=== PATIENT | male | born 1970 | race Caucasian/White ===

== ENCOUNTER 2019-09-09 11:12 | Emergency (ER) | payer OTHER, BC ==
[~2019-09-09] VITALS: Ht 180.3 cm; Wt 124.3 kg
[~2019-09-09 11:12] MED LIST changes: -IBUP400 PO; -Percocet 5-3251 EACH PO
[2019-09-09 12:57] LABS: BASOPHILS ABSOLUTE AUTO 0.08 K/mm3 (0.00-0.23); BASOPHILS PERCENT AUTO 2 % (0-2); EOSINOPHILS ABSOLUTE AUTO 0.08 K/mm3 (0.00-0.68); EOSINOPHILS PERCENT AUTO 2 % (0-6); Hematocrit 38.5 % (37.0-53.0); Hemoglobin 12.9 g/dL (13.5-17.5); IMMATURE GRAN ABSOLUTE AUTO 0.41 K/mm3 (0.00-0.10); IMMATURE GRAN PERCENT AUTO 8 % (0-1); LYMPHOCYTES ABSOLUTE AUTO 2.28 K/mm3 (0.84-5.20); LYMPHOCYTES PERCENT AUTO 42 % (21-46); MONOCYTES ABSOLUTE AUTO 0.43 K/mm3 (0.16-1.47); MONOCYTES PERCENT AUTO 8 % (4-13); Mean Corpuscular HGB Conc 33.5 g/dL (31.5-36.5); Mean Corpuscular Volume 87 fL (80-100); Mean Platelet Volume 8.4 fL (9.1-12.4); NEUTROPHILS ABSOLUTE AUTO 2.15 K/mm3 (1.96-9.15); NEUTROPHILS PERCENT AUTO 40 % (41-73); NRBC ABSOLUTE 0.04 K/mm3 (0.00-0.02); NRBC Auto 0.7 /100 WBC (0.0-0.2); Platelet Count 174 K/mm3 (150-400); RDW Coefficient Variation 12.7 % (11.7-14.2); RDW Standard Deviation 40.2 fL (35.1-46.3); Red Blood Cell Count 4.45 M/mm3 (4.30-5.90); White Blood Cell Count 5.43 K/mm3 (4.00-11.30)
[2019-09-09 13:12] LABS: Alanine Aminotransfer (ALT/SGP 81 U/L (12-78); Albumin, Blood 3.4 g/dL (3.4-5.0); Albumin/Globulin Ratio 1.1 (0.8-1.8); Alk Phos 134 U/L (50-136); Anion Gap 10 mmol/L (6-16); Aspartate Aminotrans (AST/SGOT 79 U/L (12-37); Bilirubin, Total 1.1 mg/dL (0.1-1.0); Blood Urea Nitrogen 12 mg/dL (8-24); Bun/Creatinine Ratio 19.5 (12.0-20.0); CO2, Blood 24 mmol/L (21-32); Calcium, Blood 8.6 mg/dL (8.5-10.1); Chloride, Blood 107 mmol/L (98-108); Creatinine, Blood 0.61 mg/dL (0.60-1.20); Globulin, Blood 3.2 g/dL (2.2-4.0); Glomerular Filtration Rate >60 (60-); Glucose, Blood 118 mg/dL (70-99); Potassium, Blood 3.8 mmol/L (3.5-5.5); Sodium, Blood 141 mmol/L (136-145); Total Protein, Blood 6.6 g/dL (6.4-8.2)
[2019-09-09] MEDS ORDERED: Percocet 5-3251 EACH PO (15:20)
[2019-09-09] MEDS ORDERED: IBUP400 PO (15:20)
== END 2019-09-09 15:32 | disposition home or self-care (01) ==
LOC: ER 11:12
PROVIDERS: Emergency Medicine
DX: H72.92 Unspecified perforation of tympanic membrane, left ear (principal); R51 Headache; R20.0 Anesthesia of skin; I10 Essential (primary) hypertension; E66.01 Morbid (severe) obesity due to excess calories; Z68.38 Body mass index [BMI] 38.0-38.9, adult; E11.40 Type 2 diabetes mellitus with diabetic neuropathy, unspecified; Z87.891 Personal history of nicotine dependence; Z79.899 Other long term (current) drug therapy; Z79.82 Long term (current) use of aspirin; Z79.84 Long term (current) use of oral hypoglycemic drugs
CPT/HCPCS: 70450; 80053; 85025; 96374; 96375; 99284-25; J1170; J2405

== ENCOUNTER → 2019-09-09 | Outpatient (CLI) | payer BC ==
[~2019-09-09] MED LIST: ALBU90I INH; AMIT25 PO; ATOR20; ATORVASTATIN CA80 MG PO; Aspirin EC81 MG PO; GABA300; GABA300 PO; GLYB5 PO; IBUP400 PO; LISI5 PO; LOVA40 PO; METF500; METF500 PO; NITR.4SL SL; OSEL75CA PO; PIOG30 PO; PIOGLITAZONE HC30 MG PO; Percocet 5-3251 EACH PO
== END | disposition home or self-care (01) ==
LOC: LAB SHORT 10:03 → LAB EV 10:03
DX: R59.0 Localized enlarged lymph nodes (principal)
CPT/HCPCS: 87081

== ENCOUNTER 2019-09-18 07:11 | Emergency (ER) | payer OTHER, BC ==
[~2019-09-18] VITALS: Ht 180.3 cm; Wt 122.5 kg
[~2019-09-18 07:11] MED LIST changes: +IBUP400 PO; +Percocet 5-3251 EACH PO
[2019-09-18] MEDS ORDERED: Hydrocodone-Ap1 EA26 PO (07:22)
[2019-09-18] MEDS ORDERED: Oxycodone-Apap1 EAC3 PO (07:23)
[2019-09-18] MEDS ORDERED: Zanaflex4 MG PO (07:24)
[2019-09-18 07:58] LABS: Hematocrit 35.3 % (37.0-53.0); Hemoglobin 11.9 g/dL (13.5-17.5); Mean Corpuscular HGB 28.9 pg (26.0-34.0); Mean Corpuscular HGB Conc 33.7 g/dL (31.5-36.5); Mean Corpuscular Volume 86 fL (80-100); Mean Platelet Volume 8.6 fL (9.1-12.4); NRBC ABSOLUTE 0.03 K/mm3 (0.00-0.02); NRBC Auto 0.7 /100 WBC (0.0-0.2); Platelet Count 163 K/mm3 (150-400); RDW Coefficient Variation 13.1 % (11.7-14.2); RDW Standard Deviation 40.6 fL (35.1-46.3); Red Blood Cell Count 4.12 M/mm3 (4.30-5.90)
[2019-09-18 08:16] LABS: Alanine Aminotransfer (ALT/SGP 102 U/L (12-78); Alk Phos 121 U/L (50-136); Anion Gap 12 mmol/L (6-16); Aspartate Aminotrans (AST/SGOT 69 U/L (12-37); Bilirubin, Total 1.1 mg/dL (0.1-1.0); Blood Urea Nitrogen 15 mg/dL (8-24); Bun/Creatinine Ratio 20.8 (12.0-20.0); CO2, Blood 27 mmol/L (21-32); Calcium, Blood 8.9 mg/dL (8.5-10.1); Chloride, Blood 103 mmol/L (98-108); Creatinine, Blood 0.72 mg/dL (0.60-1.20); Glomerular Filtration Rate >60 (60-); Glucose, Blood 115 mg/dL (70-99); Potassium, Blood 3.5 mmol/L (3.5-5.5); Sodium, Blood 142 mmol/L (136-145)
[2019-09-18 08:27] LABS: BAND PERCENT MAN 6 % (0-8); BASOPHILS ABSOLUTE MAN 0.04 K/mm3 (0.00-0.23); BASOPHILS PERCENT MAN 1 % (0-2); EOSINOPHILS ABSOLUTE MAN 0.13 K/mm3 (0.00-0.68); EOSINOPHILS PERCENT MAN 3 % (0-6); LYMPHOCYTES % ATYPICAL MANUAL 3 % (0-0); LYMPHOCYTES ABSOLUTE MAN 1.36 K/mm3 (0.84-5.20); LYMPHOCYTES PERCENT MAN 28 % (21-46); METAMYELOCYTE ABSOLUTE MAN 0.08 K/mm3 (0.00-0.00); METAMYELOCYTE PERCENT MAN 2 % (0-0); MONOCYTES ABSOLUTE MAN 0.35 K/mm3 (0.16-1.47); MONOCYTES PERCENT MAN 8 % (4-13); NEUTROPHILS ABSOLUTE MAN 2.42 K/mm3 (1.96-9.15); SEG NEUTROPHILS PERCENT MAN 49 % (41-73); TOTAL CELLS COUNTED 100
[2019-09-18] MEDS ORDERED: Zofran4 MG PO (11:34)
[2019-09-18] MEDS ORDERED: Valium5 MG PO (11:34)
== END 2019-09-18 12:07 | disposition home or self-care (01) ==
LOC: ER 07:11
PROVIDERS: Emergency Medicine
DX: H71.92 Unspecified cholesteatoma, left ear (principal); E86.0 Dehydration; R11.2 Nausea with vomiting, unspecified; E11.9 Type 2 diabetes mellitus without complications; G47.30 Sleep apnea, unspecified; Z87.891 Personal history of nicotine dependence; Z79.899 Other long term (current) drug therapy; Z79.82 Long term (current) use of aspirin; Z79.84 Long term (current) use of oral hypoglycemic drugs; Z79.891 Long term (current) use of opiate analgesic
CPT/HCPCS: 36415; 80053; 85025; 96361; 96374; 96375; 96376; 99284-25; J1170; J1885; J2550; J7120

== ENCOUNTER → 2019-09-20 | Outpatient (CLI) | payer BC ==
[~2019-09-20] MED LIST changes: +ACET325; +ACET325 PO; +ACET500 PO; +ACYC800 PO; +AMLO10; +ARTIFICIAL TEAR30 ML BOTHEYES; +ATOR40TA PO; +Aspir 8181 MG PO; +B-121000 MC3 PO; +BASAGLAR K100 UNIT/1 SC; +CARB200 PO; +DIAZ5 PO; +DOCU100 PO; +Diclofenac Sod2.5 ML; +FAMO20 PO; +FLUC200 PO; +Humalog Mi100 UNIT/4 SC; +Hydrocodone-Ap1 EA26 PO; +LEUCOVORIN CALC; +LEVFLO500 PO; +LIPITOR80 MG PO; +Milk Of Ma400 MG/5 M PO; +NARCAN4 MG INH; +NEUPOGEN480 MCG/0. SC; +OXYC5 PO; +Oxycodone-Apap1 EAC3 PO; +PIOG15 PO; +PREDNISONE; +PROC5 PO; +TAMS.4ER PO; +TIZA4 PO; +Valium5 MG PO; +Vitamin D2000 UNIT PO; +Zanaflex4 M1 PO; +Zanaflex4 MG PO; +Zofran4 MG PO; +diclofenac BOTHEYES
== END | disposition home or self-care (01) ==
LOC: PLD 15:10 → LAB SHORT 15:10
DX: C85.11 Unspecified B-cell lymphoma, lymph nodes of head, face, and neck (principal); R22.1 Localized swelling, mass and lump, neck
CPT/HCPCS: 88305; 88341; 88342

== ENCOUNTER 2019-09-22 13:20 | Emergency (ER) | payer OTHER, BC ==
[~2019-09-22] VITALS: Ht 185.4 cm; Wt 113.4 kg
[~2019-09-22 13:20] MED LIST changes: -ACET325; -ACET325 PO; -ACET500 PO; -ACYC800 PO; -AMLO10; -ARTIFICIAL TEAR30 ML BOTHEYES; -ATOR40TA PO; -Aspir 8181 MG PO; -B-121000 MC3 PO; -BASAGLAR K100 UNIT/1 SC; -CARB200 PO; -DIAZ5 PO; -DOCU100 PO; -Diclofenac Sod2.5 ML; -FAMO20 PO; -FLUC200 PO; -Humalog Mi100 UNIT/4 SC; -LEUCOVORIN CALC; -LEVFLO500 PO; -LIPITOR80 MG PO; -Milk Of Ma400 MG/5 M PO; -NARCAN4 MG INH; -NEUPOGEN480 MCG/0. SC; -OXYC5 PO; -PIOG15 PO; -PREDNISONE; -PROC5 PO; -TAMS.4ER PO; -TIZA4 PO; -Vitamin D2000 UNIT PO; -Zanaflex4 M1 PO; -diclofenac BOTHEYES
[2019-09-22] MEDS ORDERED: PREDNISONE (13:43)
[2019-09-22] MEDS ORDERED: NARCAN4 MG INH (13:43)
[2019-09-22 14:03] LABS: Hematocrit 33.7 % (37.0-53.0); Hemoglobin 11.4 g/dL (13.5-17.5); Mean Corpuscular HGB 29.3 pg (26.0-34.0); Mean Corpuscular HGB Conc 33.8 g/dL (31.5-36.5); Mean Corpuscular Volume 87 fL (80-100); Mean Platelet Volume 8.9 fL (9.1-12.4); NRBC ABSOLUTE 0.06 K/mm3 (0.00-0.02); NRBC Auto 1.1 /100 WBC (0.0-0.2); Platelet Count 188 K/mm3 (150-400); RDW Standard Deviation 40.7 fL (35.1-46.3); Red Blood Cell Count 3.89 M/mm3 (4.30-5.90); White Blood Cell Count 5.66 K/mm3 (4.00-11.30)
[2019-09-22 14:35] LABS: Anion Gap 13 mmol/L (6-16); Blood Urea Nitrogen 27 mg/dL (8-24); Bun/Creatinine Ratio 27.1 (12.0-20.0); CO2, Blood 24 mmol/L (21-32); Chloride, Blood 100 mmol/L (98-108); Glomerular Filtration Rate >60 (60-); Glucose, Blood 217 mg/dL (70-99); Potassium, Blood 4.1 mmol/L (3.5-5.5); Sodium, Blood 137 mmol/L (136-145); Troponin I <0.015 ng/mL (0.000-0.040)
[2019-09-22 14:55] LABS: BAND PERCENT MAN 2 % (0-8); BASOPHILS PERCENT MAN 0 % (0-2); EOSINOPHILS PERCENT MAN 0 % (0-6); LYMPHOCYTES ABSOLUTE MAN 1.98 K/mm3 (0.84-5.20); LYMPHOCYTES PERCENT MAN 35 % (21-46); METAMYELOCYTE ABSOLUTE MAN 0.05 K/mm3 (0.00-0.00); METAMYELOCYTE PERCENT MAN 1 % (0-0); MONOCYTES ABSOLUTE MAN 0.16 K/mm3 (0.16-1.47); MONOCYTES PERCENT MAN 3 % (4-13); MYELOCYTE ABSOLUTE MAN 0.05 K/mm3 (0.00-0.00); MYELOCYTE PERCENT MAN 1 % (0-0); NEUTROPHILS ABSOLUTE MAN 3.39 K/mm3 (1.96-9.15); SEG NEUTROPHILS PERCENT MAN 58 % (41-73); TOTAL CELLS COUNTED 100
== END 2019-09-22 15:26 | disposition home or self-care (01) ==
LOC: ER 13:20
PROVIDERS: Emergency Medicine
DX: R07.89 Other chest pain (principal); K21.9 Gastro-esophageal reflux disease without esophagitis; F41.9 Anxiety disorder, unspecified; G89.4 Chronic pain syndrome; I10 Essential (primary) hypertension; E11.40 Type 2 diabetes mellitus with diabetic neuropathy, unspecified; E78.5 Hyperlipidemia, unspecified; G47.33 Obstructive sleep apnea (adult) (pediatric); E66.01 Morbid (severe) obesity due to excess calories; Z79.899 Other long term (current) drug therapy; Z79.82 Long term (current) use of aspirin; Z79.84 Long term (current) use of oral hypoglycemic drugs; Z87.891 Personal history of nicotine dependence; Z68.33 Body mass index [BMI] 33.0-33.9, adult
CPT/HCPCS: 71045; 80048; 83690; 84484; 85025; 93005; 93010; 99284-25

== ENCOUNTER 2019-09-24 15:57 | Inpatient (IN) | payer OTHER, BC ==
[~2019-09-24] VITALS: Ht 180.3 cm; Wt 123.8 kg
[~2019-09-24 15:57] MED LIST changes: +NARCAN4 MG INH; +PREDNISONE
[2019-09-24 16:40] LABS: Hematocrit 36.7 % (37.0-53.0); Hemoglobin 12.1 g/dL (13.5-17.5); Mean Corpuscular HGB 28.9 pg (26.0-34.0); Mean Corpuscular Volume 88 fL (80-100); Mean Platelet Volume 8.6 fL (9.1-12.4); NRBC ABSOLUTE 0.14 K/mm3 (0.00-0.02); NRBC Auto 3.3 /100 WBC (0.0-0.2); Platelet Count 151 K/mm3 (150-400); RDW Coefficient Variation 13.2 % (11.7-14.2); RDW Standard Deviation 42.3 fL (35.1-46.3); Red Blood Cell Count 4.18 M/mm3 (4.30-5.90); White Blood Cell Count 4.22 K/mm3 (4.00-11.30)
[2019-09-24 17:01] LABS: Albumin, Blood 2.7 g/dL (3.4-5.0); Albumin/Globulin Ratio 0.8 (0.8-1.8); Bilirubin, Total 1.1 mg/dL (0.1-1.0); Bun/Creatinine Ratio 26.9 (12.0-20.0); Calcium, Blood 8.4 mg/dL (8.5-10.1); Creatinine, Blood 1.34 mg/dL (0.60-1.20); Globulin, Blood 3.2 g/dL (2.2-4.0); Potassium, Blood 4.4 mmol/L (3.5-5.5); Total Protein, Blood 5.9 g/dL (6.4-8.2)
[2019-09-24 17:23] LABS: BAND PERCENT MAN 10 % (0-8); BASOPHILS PERCENT MAN 0 % (0-2); EOSINOPHILS ABSOLUTE MAN 0.04 K/mm3 (0.00-0.68); EOSINOPHILS PERCENT MAN 1 % (0-6); LYMPHOCYTES % ATYPICAL MANUAL 5 % (0-0); LYMPHOCYTES PERCENT MAN 26 % (21-46); METAMYELOCYTE ABSOLUTE MAN 0.16 K/mm3 (0.00-0.00); METAMYELOCYTE PERCENT MAN 4 % (0-0); MONOCYTES ABSOLUTE MAN 0.08 K/mm3 (0.16-1.47); MONOCYTES PERCENT MAN 2 % (4-13); MYELOCYTE ABSOLUTE MAN 0.08 K/mm3 (0.00-0.00); MYELOCYTE PERCENT MAN 2 % (0-0); NEUTROPHILS ABSOLUTE MAN 2.48 K/mm3 (1.96-9.15); PROMYELOCYTE ABSOLUTE MAN 0.04 K/mm3 (0.00-0.00); PROMYELOCYTE PERCENT MAN 1 % (0-0); SEG NEUTROPHILS PERCENT MAN 49 % (41-73); TOTAL CELLS COUNTED 100
[2019-09-24] MEDS ORDERED: PIOG15 PO (22:42)
[2019-09-24] MEDS ORDERED: METF500 PO (22:42)
[2019-09-24] MEDS ORDERED: OXYC5 PO (22:42)
[2019-09-24] MEDS ORDERED: FAMO20 PO (22:42)
[2019-09-24] MEDS ORDERED: DIAZ5 PO (22:42)
[2019-09-24] MEDS ORDERED: Vitamin D2000 UNIT PO (22:43)
[2019-09-24] MEDS ORDERED: Zofran4 MG PO (22:43)
[2019-09-24] MEDS ORDERED: Aspir 8181 MG PO (22:43)
[2019-09-24] MEDS ORDERED: ATOR40TA PO (22:43)
[2019-09-24] MEDS ORDERED: TIZA4 PO (22:45)
[2019-09-24] MEDS ORDERED: IBUP400 PO (22:45)
[2019-09-24] MEDS ORDERED: GABA300 PO (22:46)
[2019-09-24] MEDS ORDERED: NITR.4SL SL (22:46)
[2019-09-25 04:57] LABS: Hematocrit 32.8 % (37.0-53.0); Hemoglobin 11.1 g/dL (13.5-17.5); Mean Corpuscular HGB 29.5 pg (26.0-34.0); Mean Corpuscular HGB Conc 33.8 g/dL (31.5-36.5); Mean Corpuscular Volume 87 fL (80-100); NRBC Auto 2.9 /100 WBC (0.0-0.2); Platelet Count 124 K/mm3 (150-400); RDW Coefficient Variation 13.1 % (11.7-14.2); RDW Standard Deviation 41.2 fL (35.1-46.3); Red Blood Cell Count 3.76 M/mm3 (4.30-5.90); White Blood Cell Count 3.44 K/mm3 (4.00-11.30)
[2019-09-25 05:20] LABS: Alanine Aminotransfer (ALT/SGP 77 U/L (12-78); Albumin, Blood 2.4 g/dL (3.4-5.0); Albumin/Globulin Ratio 0.9 (0.8-1.8); Alk Phos 128 U/L (50-136); Anion Gap 12 mmol/L (6-16); Aspartate Aminotrans (AST/SGOT 94 U/L (12-37); Blood Urea Nitrogen 38 mg/dL (8-24); Bun/Creatinine Ratio 29.7 (12.0-20.0); CO2, Blood 26 mmol/L (21-32); Chloride, Blood 99 mmol/L (98-108); Creatinine, Blood 1.28 mg/dL (0.60-1.20); Globulin, Blood 2.8 g/dL (2.2-4.0); Glomerular Filtration Rate >60 (60-); Glucose, Blood 118 mg/dL (70-99); Potassium, Blood 4.5 mmol/L (3.5-5.5); Sodium, Blood 137 mmol/L (136-145); Total Protein, Blood 5.2 g/dL (6.4-8.2)
--- NOTE | 2019-09-25 05:26 | NUR ---
SHIFT SUMMARY ED ADMIT @ 2315. AOX4. LS CLEAR, DENIES SOB. PT HAS 2L O2 IN MOUTH IN PLACE OF CPAP. NO C/O NAUSEA. BM YESTERDAY, REPORTS NORMAL. PAIN HAS BEEN 8-9/10 IN HEAD/FACE AREA. 50MCG OF FENT GIVEN @ 0000 AND 0400. TORADOL GIVEN @ 0050. 2MG DILAUDID GIVEN @ 0500. NO SKIN ISSUES. UP SBA TO BATHROOM. L FA HAS NS @ 75ML/HR. REGULAR DIET, TOLERATING WELL. CT OF L NARE TUMOR SHOWED SAME SIZE LESION CT A WEEK AGO. PT VERY SENSITIVE TO LIGHT AND NOISE. REPORTS DOUBLE VISION AND DIZZINESS AT TIMES. PT HAD A VERY SMALL BLOODY NOSE OVERNIGHT, LIGHT PINK BLOOD ON GAUZE. BLOOD GLUCOSE AC AND HS. VSS. PAIN MANAGEMENT IS THE MAIN GOAL RIGHT NOW.
[2019-09-25 15:00] LABS: Performing Lab SYMBIODX; Test Name TISSUE BIOPSY
[2019-09-25 15:37] LABS: Uric Acid, Blood 12.7 mg/dL (3.5-7.2)
--- NOTE | 2019-09-25 15:44 | NUR ---
ALERT. ORIENTED. DIFFICULT TO UNDERSTAND AT TIMES VOICE SOMETIMES GARBLED. DILAUDID IV SEEMS TO HELP WITH PAIN CONTROL. HAS ORDERED LABS AND CT AND PER HIS OFFICE HE WILL SEE PATIENT IN A.M. WHEN LABS AND CT IS READ. USES OXYGEN INTERMITTENTLY WITH N/C PRONGS IN MOUTH. USES BATHROOM WITH HELP OF RELATIVES. ROOM DARKENED WITH DOOR CLOSED FOR NOISE CONTROL. ABLE TO MAKE NEEDS KNOWN. CALL LIGHT WITHIN REACH. [facility]
--- NOTE | 2019-09-25 16:54 | NUR ---
VOMITED AND TOO SOON FOR ZOFRAN. PER CAN CHANGE ZOFRAN TO Q 4 HOURS
--- NOTE | 2019-09-26 00:55 | NUR ---
PT HAS SON IN THE THAT WAS REQUESTING TO KNOW INFO ABOUT HIS DAD
--- NOTE | 2019-09-26 04:21 | NUR ---
SHIFT SUMMARY AOX4. LS CLEAR, DENIES SOB. NO C/O NAUSEA. PAIN REMAINS IN FACE/HEAD, 1MG DILAUDID GIVEN @ 1930 AND PT SLEPT MOST OF THE NIGHT. CPAP. L AC IV - SL. NO SKIN ISSUES. QUESTION LOVENOX IF BLOODY NOSE TODAY, NO BLOODY NOSE OVERNIGHT. AC AND HS - 137. PT STILL SENSITIVE TO LIGHT AND NOISE. WAITING FOR LAST NIGHTS CT RESULTS. DR OCHOA TO SEE PT TODAY. UNSURE OF TREATMENT PLAN.
[2019-09-26 05:17] LABS: Hematocrit 34.5 % (37.0-53.0); Hemoglobin 11.5 g/dL (13.5-17.5); Mean Corpuscular HGB 28.3 pg (26.0-34.0); Mean Corpuscular HGB Conc 33.3 g/dL (31.5-36.5); Mean Corpuscular Volume 85 fL (80-100); Mean Platelet Volume 8.8 fL (9.1-12.4); NRBC ABSOLUTE 0.14 K/mm3 (0.00-0.02); NRBC Auto 3.4 /100 WBC (0.0-0.2); Platelet Count 135 K/mm3 (150-400); RDW Coefficient Variation 13.3 % (11.7-14.2); RDW Standard Deviation 40.8 fL (35.1-46.3); Red Blood Cell Count 4.07 M/mm3 (4.30-5.90); White Blood Cell Count 4.17 K/mm3 (4.00-11.30)
[2019-09-26 05:41] LABS: Albumin, Blood 2.5 g/dL (3.4-5.0); Albumin/Globulin Ratio 0.9 (0.8-1.8); Bilirubin, Total 0.8 mg/dL (0.1-1.0); Bun/Creatinine Ratio 23.5 (12.0-20.0); Calcium, Blood 8.6 mg/dL (8.5-10.1); Creatinine, Blood 1.66 mg/dL (0.60-1.20); Globulin, Blood 2.8 g/dL (2.2-4.0); Phosphorus, Blood 4.9 mg/dL (2.5-4.9); Potassium, Blood 4.7 mmol/L (3.5-5.5); Total Protein, Blood 5.3 g/dL (6.4-8.2)
[2019-09-26 05:54] LABS: BAND PERCENT MAN 4 % (0-8); BASOPHILS PERCENT MAN 0 % (0-2); EOSINOPHILS ABSOLUTE MAN 0.08 K/mm3 (0.00-0.68); EOSINOPHILS PERCENT MAN 2 % (0-6); LYMPHOCYTES % ATYPICAL MANUAL 3 % (0-0); LYMPHOCYTES PERCENT MAN 33 % (21-46); METAMYELOCYTE ABSOLUTE MAN 0.04 K/mm3 (0.00-0.00); METAMYELOCYTE PERCENT MAN 1 % (0-0); MONOCYTES ABSOLUTE MAN 0.16 K/mm3 (0.16-1.47); MONOCYTES PERCENT MAN 4 % (4-13); MYELOCYTE ABSOLUTE MAN 0.12 K/mm3 (0.00-0.00); MYELOCYTE PERCENT MAN 3 % (0-0); NEUTROPHILS ABSOLUTE MAN 2.25 K/mm3 (1.96-9.15); SEG NEUTROPHILS PERCENT MAN 50 % (41-73); TOTAL CELLS COUNTED 100
[2019-09-26 09:44] LABS: International Normalized Ratio 0.92; Prothrombin Time Results 9.8 Sec (9.7-11.5)
--- NOTE | 2019-09-26 16:29 | NUR ---
PATIENT FEELS LIKE HE NEEDS TO URINATE AND CANNOT. BLADDER SCAN SHOWED 682ML'S IN BLADDER. DR. ANDERSON NOTIFIED AND ORDERS RECIEVED TO PLACE BROWN AND START FLOMAX 0.4MG DAILY.
--- NOTE | 2019-09-26 17:08 | NUR ---
PATIENT A/OX4, UP INDPENDENTLY IN ROOM. NEW DIAGNOSIS OF LYMPHOMA CHEMO TO START IN AM. VSS, CPAP AT NOC. SKIN INTACT. PAIN CONTROLLED WITH DILAUDID 1MG. BROWN PLACED THIS SHIFT DUE TO RETENTION. STARTED A 24 HOUR URINE PROTEIN COLLECTION AT 1700. 20IV TO L AC WNL AND SL. MISAEL X2 THIS SHFIT TO CONTROL NAUSEA. PLACED ON A 1L FLUID RESTRICTION AND A SOFT ADA DIET, TOLERATING SMALL AMOUNTS. CALM AND COOPERATIVE WITH CARE, CALLS APPROPRIATELY FOR ASSISTANCE.
[2019-09-27 01:06] LABS: HBSAG SCREEN Negative (Negative); HEP B CORE AB, TOT Negative (Negative)
--- NOTE | 2019-09-27 01:12 | NUR ---
BEGINNING SHIFT SUMMARY ASSUMED CARE OF PT AT 1900. PT WAS VISTING WITH TIFFANIE AT THIS TIME. PT IS A/O, CALL APPROPIATLY. PT C/O PAIN IN HIS FACE AND [place], MEDICATED PER EMAR. PT IS ON A 24 URINE CATCH, BROWN BAG AND URING ON ICE. PT HAS HIS CPAP ON AND HAS BEEN SLEEPING T/O THE NIGHT, CALL LIGHT IN REACH, BED IN LOWEST POSTION, WILL CONTINUE TO MONITOR.
[2019-09-27 04:59] LABS: Hematocrit 31.4 % (37.0-53.0); Hemoglobin 10.4 g/dL (13.5-17.5); Mean Corpuscular HGB Conc 33.1 g/dL (31.5-36.5); Mean Corpuscular Volume 85 fL (80-100); Mean Platelet Volume 8.8 fL (9.1-12.4); NRBC ABSOLUTE 0.15 K/mm3 (0.00-0.02); NRBC Auto 3.9 /100 WBC (0.0-0.2); Platelet Count 104 K/mm3 (150-400); RDW Coefficient Variation 13.1 % (11.7-14.2); RDW Standard Deviation 40.1 fL (35.1-46.3); Red Blood Cell Count 3.71 M/mm3 (4.30-5.90); White Blood Cell Count 3.81 K/mm3 (4.00-11.30)
[2019-09-27 05:22] LABS: Magnesium, Blood 2.6 mg/dL (1.6-2.4)
[2019-09-27 05:32] LABS: BAND PERCENT MAN 11 % (0-8); BASOPHILS PERCENT MAN 0 % (0-2); EOSINOPHILS PERCENT MAN 0 % (0-6); LYMPHOCYTES PERCENT MAN 37 % (21-46); METAMYELOCYTE ABSOLUTE MAN 0.07 K/mm3 (0.00-0.00); METAMYELOCYTE PERCENT MAN 2 % (0-0); MONOCYTES ABSOLUTE MAN 0.41 K/mm3 (0.16-1.47); MONOCYTES PERCENT MAN 11 % (4-13); MYELOCYTE ABSOLUTE MAN 0.07 K/mm3 (0.00-0.00); MYELOCYTE PERCENT MAN 2 % (0-0); NEUTROPHILS ABSOLUTE MAN 1.82 K/mm3 (1.96-9.15); SEG NEUTROPHILS PERCENT MAN 37 % (41-73); TOTAL CELLS COUNTED 100
[2019-09-27 06:08] LABS: IMMUNOGLOBULIN A, QN, SERUM 199 mg/dL (90-386); IMMUNOGLOBULIN G, QN, SERUM 120 mg/dL (700-1600); IMMUNOGLOBULIN M, QN, SERUM 43 mg/dL (20-172)
[2019-09-27 06:18] LABS: CPK Creatine Kinase 38 U/L (39-308); Prostate Specific Antigen 0.183 ng/mL (0.000-4.000)
--- NOTE | 2019-09-27 06:20 | NUR ---
END SHIFT SUMMARY NO ACUTE CHANGES NOTED T/O THE NIGHT. PT HAS FAMILY SLEEPING IN THE ROOM WITH HIM ALL NIGHT. CATH DRAINING, 24HR URINE COLLECTION IN PROGRESS. PT DENIES SOB OR PAIN AT THIS TIME. PT IS CURRENTLY SLEEPING, CALL LIGHT IN REACH, BED IN LOWEST POSITION, WILL CONTINUE TO MONITOR UNTIL DAYSHIFT NURSE ARRIVES.
[2019-09-27 08:08] LABS: HIV SCREEN 4TH GENERATION WRFX Non Reactive (Non Reactive)
[2019-09-27 08:57] LABS: Bun/Creatinine Ratio 23.7 (12.0-20.0); Creatinine, Blood 1.98 mg/dL (0.60-1.20); Potassium, Blood 4.7 mmol/L (3.5-5.5)
--- NOTE | 2019-09-27 08:59 | NUR ---
24 HOUR URINE COLLECTION ICE WAS REPLACED IT WAS ALL MELTED. 350ML WAS ADDED TO THE URINE JUG WELL.
--- NOTE | 2019-09-27 10:15 | NUR ---
HE HAS HAD 4 DIFFERENT VISITORS TODAY, 3 OF WHICH ARE IN THE ROOM WITH HIM NOW. HE HAS BEEN WARM AND CLAMMY OFF AND ON TODAY. NEW PERIPHERAL IV PLACED BY THE CHARGE NURSE FOR CHEMOTHERAPY TODAY. HE ATE YOGURT AND MILK FOR BREAKFAST. HE TOOK ALL HIS ROUTINE AM MEDS. LATER WHEN I GAVE HIM HIS IV AND ORAL PREMEDS FOR CHEMO, HE VOMITED 125 MLS INCLUDING THE TYLENOL AND PROBABLY THE BENADRYL. THOSE 2 MEDICATIONS WERE REPEATED. WAS HERE AT THAT TIME TO ANSWER ANY QUESTIONS HE HAD. HE DANGLED AND STOOD WHEN WE CHANGED HIS SHEETS. HE IS WEAK. RITUXIMAB HAS BEEN STARTED.
--- NOTE | 2019-09-27 11:10 | NUR ---
HE CONTINUES TO BE DIAPHORETIC. HE IS SLEEPING LIGHTLY AND HAS JUST ONE VISITOR AT THE BEDSIDE. HE HAS HAD TWO INCREMENTAL INCRESES ON HIS RITUXIMAB INFUSION SO FAR. NOW IS IS COMPLAINING OF SOME NAUSEA AGAIN. WILL GIVE HIM A PRN DOSE.
--- NOTE | 2019-09-27 11:59 | NUR ---
CURRENT COMPLAINT IS ABD PAIN. HE RAN HIS HAND ACROSS HIS UPPER ABD. RITUXIMAB REDUCED TO PREVIOUS RATE, THEN DILAUDID 1 MG GIVEN IV. CPAP PUT ON AND HE IS SLEEPING. WILL CONTINUE FREQUENT VS DURING RITUXIMAB INFUSION.
--- NOTE | 2019-09-27 13:04 | NUR ---
PATIENT DID NOT EAT LUNCH THIS SHIFT DUE TO NOT FEELING WELL AT THIS TIME AND SLEEPING.
--- NOTE | 2019-09-27 14:44 | NUR ---
HE IS SLEEPING QUIETLY STILL WITH CPAP ON. VSS. BP IS NOT HIGH IT WAS, A LITTLE LESS TACHY. BROWN DRAINING WELL. 24 HR URINE ONGOING. CHEMOTHERAPY PRECAUTIONS IN PLACE SINCE RITUXIMAB STARTED. RITUXIMAB RATE UP TO IT'S MAXIMUM, 222 MLS/HR. IV SITE WNL WITH GOOD BLOOD RETURN.
--- NOTE | 2019-09-27 15:42 | NUR ---
CYCLOPHOSPHAMIDE INFUSION HAS BEEN STARTED. WILL WATCH FOR ANY HEMATURIA. HE TOLERATED THE RITUXIMAB INFUSION WELL SO FAR. HE HAS 3 FRIENDS IN THE ROOM RIGHT NOW AFTER HIS LONG NAP. HE HAD A FEW BITES OF LASAGNA AND A LITTLE FRUIT COCKTAIL.
--- NOTE | 2019-09-27 16:27 | NUR ---
HE IS EATING SOME FRESH FRUIT. HE DENIES THE NEED FOR NAUSEA OR PAIN MEDICINE AT THIS TIME. A DIFFERENT FRIEND IS AT THE BEDSIDE NOW.
[2019-09-27 17:42] LABS: Protein, Urine Quantitative 52.3 mg/dL (0.0-11.9)
--- NOTE | 2019-09-27 18:18 | NUR ---
HE HAS HAD PRN ZOFRAN X2 AND DILAUDID IV X2 THIS SHIFT. HE ALSO RECEIVED 4 PRE-MEDICATIONS AND 2 CHEMOTHERAPY INFUSIONS TODAY PRESCRIBED BY . HE HAD 1 EMESIS BEFORE CHEMO STARTED. HE HAS HAD MULTIPLE FRIENDS IN AND OUT ALL DAY LONG BUT THEY ARE COMFORTING TO HIM, NOT DISRUPTFUL. CBG 389 LATE THIS AFTERNOON PROBABLY D/T A BOWL OF FRESH FRUIT HE ATE SHORTLY BEFOREHAND AND A DOSE OF DEXAMETHASONE MID-MORNING. BROWN PATENT. NO HEMATURIA. 24 HR URINE JUG SENT TO LAB AND RESULTED. AFEBRILE.HYDRALAZINE TO START TONIGHT. HE IS WEAK BUT DANGLED ONCE TODAY AND STOOD AT BEDSIDE. HIS PAIN HAS BEEN IN HIS HEAD, HIS BACK AND HIS ABD.
[2019-09-27 21:06] LABS: FLOW INTERPRETATION Note: (.); SPECIMEN TYPE Note: (.)
--- NOTE | 2019-09-27 23:05 | NUR ---
PT AND FAMILY REQUESTING A LARGER RM IF POSSIBLE. PT TRANSFERRING FROM RM 312 TO 364. PT TOOK SHOWER BEFORE TRANSFER. ALL BELONGINGS WITH PT AT TIME OF TRANSFER. JOANN RN TO ASSUME CARE OF PT. REPORT GIVEN.
--- NOTE | 2019-09-27 23:05 | NUR ---
BEGINNING SHIFT SUMMARY ASSUMED CARE OF PT AT 1900. PT WAS LYING IN BED TALKING WITH COMPANY. PT IS A/O AND CALL APPROPIATLY. HEART SOUNDS TACHY AND REGULAR, LUNG SOUNDS CLEAR, DENIES SOB/CP. PT C/O PAIN IN HIS HEAD ND NAUSEA, MEDICATED PER EMAR. FAMILY REQUESTED A SHOWER FOR PT, PT TOLERATED WELL. PT WILL BE MOVED TO ANOTHER ROOM TO ACCOMIDATE HIS VISITORS AND FAMILY NEEDS. CALL LIGHT IN REACH, LJ IN LOWEST POSTION, WILL CONTINUE TO MONITOR UNTIL TRANSFER.
--- NOTE | 2019-09-27 23:11 | NUR ---
PATIENT TRANSFERRED FROM ROOM 312 TO 364. HE ALREADY HAD A SHOWER AND WAS BROUGHT TO THE ROOM VIA WHEELCHAIR. HE TRANSFERRED TO BED WITH SOME ASSISTANCE. ASSISTED IN GETTING HIM AND FAMILY SETTLED INTO THE ROOM. DENIED ANY NEEDS AT THIS TIME. WILL CONTINUE TO MONITOR.
--- NOTE | 2019-09-28 05:02 | NUR ---
SHIFT SUMMARY: I ASSUMED CARE OF THIS PATIENT AROUND 2300. HE WAS A TRANSFERR FROM ROOM 312 DUE TO PATIENT WANTING A LARGER ROOM. PATIENT HAS DONE VERY WELL THROUGHOUT HIS TIME IN MY CARE. HE RECIEVED 1 X DOSE SO FAR OF DILAUDID 2MG, WITH 4MG OF ZOFRAN. SINCE THEN HE HAS SLEPT COMFORTABLY WITH NO PROBLEMS THE REST OF THE NIGHT. NO ACUTE CHANGES HAVE OCCURRED. CALL LIGHT HAS REMAINED IN REACH AND WAS USED APPROPRIATLY. WILL REPORT OFF TO DAY SHIFT RN.
[2019-09-28 05:07] LABS: Hematocrit 28.8 % (37.0-53.0); Hemoglobin 9.7 g/dL (13.5-17.5); Mean Corpuscular HGB 28.5 pg (26.0-34.0); Mean Corpuscular HGB Conc 33.7 g/dL (31.5-36.5); Mean Corpuscular Volume 85 fL (80-100); NRBC ABSOLUTE 0.06 K/mm3 (0.00-0.02); Platelet Count 94 K/mm3 (150-400); RDW Coefficient Variation 12.9 % (11.7-14.2); White Blood Cell Count 1.51 K/mm3 (4.00-11.30)
[2019-09-28 05:31] LABS: Alanine Aminotransfer (ALT/SGP 38 U/L (12-78); Albumin, Blood 2.1 g/dL (3.4-5.0); Albumin/Globulin Ratio 0.8 (0.8-1.8); Alk Phos 99 U/L (50-136); Anion Gap 13 mmol/L (6-16); Aspartate Aminotrans (AST/SGOT 69 U/L (12-37); Bilirubin, Total 0.5 mg/dL (0.1-1.0); Blood Urea Nitrogen 55 mg/dL (8-24); Bun/Creatinine Ratio 29.1 (12.0-20.0); CO2, Blood 24 mmol/L (21-32); Calcium, Blood 8.3 mg/dL (8.5-10.1); Chloride, Blood 95 mmol/L (98-108); Creatinine, Blood 1.89 mg/dL (0.60-1.20); Globulin, Blood 2.7 g/dL (2.2-4.0); Glomerular Filtration Rate 40 (60-); Glucose, Blood 205 mg/dL (70-99); Magnesium, Blood 2.4 mg/dL (1.6-2.4); Potassium, Blood 4.8 mmol/L (3.5-5.5); Sodium, Blood 132 mmol/L (136-145); Total Protein, Blood 4.8 g/dL (6.4-8.2)
[2019-09-28 05:41] LABS: BAND PERCENT MAN 14 % (0-8); BASOPHILS PERCENT MAN 0 % (0-2); EOSINOPHILS PERCENT MAN 0 % (0-6); LYMPHOCYTES % ATYPICAL MANUAL 1 % (0-0); LYMPHOCYTES ABSOLUTE MAN 0.25 K/mm3 (0.84-5.20); LYMPHOCYTES PERCENT MAN 16 % (21-46); METAMYELOCYTE ABSOLUTE MAN 0.01 K/mm3 (0.00-0.00); METAMYELOCYTE PERCENT MAN 1 % (0-0); MONOCYTES ABSOLUTE MAN 0.01 K/mm3 (0.16-1.47); MONOCYTES PERCENT MAN 1 % (4-13); MYELOCYTE ABSOLUTE MAN 0.09 K/mm3 (0.00-0.00); MYELOCYTE PERCENT MAN 6 % (0-0); NEUTROPHILS ABSOLUTE MAN 1.13 K/mm3 (1.96-9.15); SEG NEUTROPHILS PERCENT MAN 61 % (41-73); TOTAL CELLS COUNTED 100
[2019-09-28 05:48] LABS: Phosphorus, Blood 8.2 mg/dL (2.5-4.9)
--- NOTE | 2019-09-28 06:04 | NUR ---
LATE ENTRY: CRITICAL VALUE RECEIVED FOR PHOSPHORUS 8.2. CALLED TO DR. PICKETT. NO NEW ORDERS RECEIVED, STATES JUST TO MONITOR HIM.
--- NOTE | 2019-09-28 15:36 | NUR ---
SUMMARY PT IS A/O X4, PLEASANT AFFECT. STATE CONTINUING HEADACHE R/T NEW HEAD/NECK MASS. STATE FATIGUE WEAKNESS S/P CHEMO YESTERDAY. HE CHOOSE DILUADID 2MG PO FOR PAIN RELIEF/CONTROL THIS AM, STATE EFFECTIVE HOWEVER TOO STRONG. GAVE PERCOCET 1 TAB NEXT REPORT OF PAIN, HE STATE EFFECTIVE & LESS DROWSINESS. HE HAS BEEN IN BED MOST OF DAY, FAMILY @ BEDSIDE, MULT VISITORS TODAY. VSS.
[2019-09-28 16:06] LABS: A/G RATIO 1.2 (0.7-1.7); ALBUMIN 2.5 g/dL (2.9-4.4); ALPHA-1-GLOBULIN 0.3 g/dL (0.0-0.4); BETA GLOBULIN 0.6 g/dL (0.7-1.3); GAMMA GLOBULIN 0.2 g/dL (0.4-1.8); GLOBULIN, TOTAL 2.1 g/dL (2.2-3.9); IMMUNOGLOBULIN A, QN, SERUM 200 mg/dL (90-386); IMMUNOGLOBULIN G, QN, SERUM 127 mg/dL (700-1600); IMMUNOGLOBULIN M, QN, SERUM 42 mg/dL (20-172); M-SPIKE Comment: g/dL (Not Observed); PROTEIN, TOTAL, SERUM 4.6 g/dL (6.0-8.5)
--- NOTE | 2019-09-29 05:25 | NUR ---
SHIFT SUMMARY PT'S LS CLEAR AND BT +. PT HAS A MASS IN HIS NECK AND GETS FREQUENT HEADACHES FROM IT. HE GETS PAIN MEDS FOR THE INTENSE HEADACHES AND THE MED WAS EFFECTIVE. PT C/O HIS BLADDER BEING FULL AND NEEDING TO URINATE BUT HE HAS A BROWN CATH IN PLACE. THIS RN FLUSHED THE CATHETER AND THEN SCANNED THE BLADDER. THE BLADDER HAD NO MORE URINE IN IT. HE HAS APPEARED TO BE SLEEPING MOST OF THE NIGHT.
[2019-09-29 05:35] LABS: Hematocrit 28.9 % (37.0-53.0); Hemoglobin 9.8 g/dL (13.5-17.5)
[2019-09-29 06:04] LABS: Anion Gap 8 mmol/L (6-16); Blood Urea Nitrogen 53 mg/dL (8-24); Bun/Creatinine Ratio 40.5 (12.0-20.0); CO2, Blood 28 mmol/L (21-32); Calcium, Blood 7.3 mg/dL (8.5-10.1); Chloride, Blood 99 mmol/L (98-108); Creatinine, Blood 1.31 mg/dL (0.60-1.20); Glomerular Filtration Rate >60 (60-); Glucose, Blood 293 mg/dL (70-99); Magnesium, Blood 2.5 mg/dL (1.6-2.4); Phosphorus, Blood 7.2 mg/dL (2.5-4.9); Sodium, Blood 135 mmol/L (136-145)
--- NOTE | 2019-09-29 18:23 | NUR ---
SHIFT SUMMARY PATIENT CONTINUES TO HAVE PAIN. IMAGING STUDY OF HEAD PERFORMED TODAY DUE TO DOUBLE VISION. FREQUENT VISITORS. BROWN PULLED. URINATING. BOWEL CARE ORDERED.
[2019-09-30 05:05] LABS: Hematocrit 26.3 % (37.0-53.0); Hemoglobin 8.6 g/dL (13.5-17.5)
--- NOTE | 2019-09-30 05:15 | NUR ---
09/30/19 0505 AWAKENED FOR AM VITALS. SLEEPING PRIOR. DENIED NEED FOR PAIN MEDICATION AT THIS TIME. VITALS REMAIN STABLE. MEMBER OF FAMILY STAYED WITH HIM THROUGHOUT SHIFT.
[2019-09-30 05:30] LABS: Albumin, Blood 1.8 g/dL (3.4-5.0); Anion Gap 5 mmol/L (6-16); Blood Urea Nitrogen 26 mg/dL (8-24); Bun/Creatinine Ratio 30.6 (12.0-20.0); CO2, Blood 32 mmol/L (21-32); Calcium, Blood 7.3 mg/dL (8.5-10.1); Chloride, Blood 101 mmol/L (98-108); Creatinine, Blood 0.85 mg/dL (0.60-1.20); Glomerular Filtration Rate >60 (60-); Glucose, Blood 175 mg/dL (70-99); Magnesium, Blood 2.1 mg/dL (1.6-2.4); Potassium, Blood 3.8 mmol/L (3.5-5.5); Sodium, Blood 138 mmol/L (136-145)
[2019-09-30 05:36] LABS: Phosphorus, Blood 3.7 mg/dL (2.5-4.9)
[2019-09-30 08:46] LABS: Hemoglobin 8.8 g/dL (13.5-17.5); Mean Corpuscular HGB 29.2 pg (26.0-34.0); Mean Corpuscular HGB Conc 33.8 g/dL (31.5-36.5); Mean Corpuscular Volume 86 fL (80-100); Mean Platelet Volume 9.7 fL (9.1-12.4); NRBC ABSOLUTE 0.02 K/mm3 (0.00-0.02); NRBC Auto 1.3 /100 WBC (0.0-0.2); Platelet Count 54 K/mm3 (150-400); RDW Coefficient Variation 13.2 % (11.7-14.2); RDW Standard Deviation 41.3 fL (35.1-46.3); Red Blood Cell Count 3.01 M/mm3 (4.30-5.90); White Blood Cell Count 1.52 K/mm3 (4.00-11.30)
[2019-09-30 09:17] LABS: BAND PERCENT MAN 15 % (0-8); BASOPHILS PERCENT MAN 0 % (0-2); EOSINOPHILS ABSOLUTE MAN 0.03 K/mm3 (0.00-0.68); EOSINOPHILS PERCENT MAN 2 % (0-6); LYMPHOCYTES % ATYPICAL MANUAL 2 % (0-0); LYMPHOCYTES ABSOLUTE MAN 0.48 K/mm3 (0.84-5.20); LYMPHOCYTES PERCENT MAN 30 % (21-46); METAMYELOCYTE ABSOLUTE MAN 0.01 K/mm3 (0.00-0.00); METAMYELOCYTE PERCENT MAN 1 % (0-0); MONOCYTES ABSOLUTE MAN 0.06 K/mm3 (0.16-1.47); MONOCYTES PERCENT MAN 4 % (4-13); MYELOCYTE ABSOLUTE MAN 0.03 K/mm3 (0.00-0.00); MYELOCYTE PERCENT MAN 2 % (0-0); NEUTROPHILS ABSOLUTE MAN 0.89 K/mm3 (1.96-9.15); SEG NEUTROPHILS PERCENT MAN 44 % (41-73); TOTAL CELLS COUNTED 100
[2019-09-30] MEDS ORDERED: ACET500 PO (13:01)
[2019-09-30] MEDS ORDERED: AMLO10 (13:01)
[2019-09-30] MEDS ORDERED: DOCU100 PO (13:02)
[2019-09-30] MEDS ORDERED: CARB200 PO (13:02)
[2019-09-30] MEDS ORDERED: BASAGLAR K100 UNIT/1 SC (13:06)
[2019-09-30] MEDS ORDERED: Humalog Mi100 UNIT/4 SC (13:10)
[2019-09-30] MEDS ORDERED: TAMS.4ER PO (13:12)
[2019-09-30] MEDS ORDERED: Milk Of Ma400 MG/5 M PO (13:12)
--- NOTE | 2019-09-30 14:01 | NUR ---
SHIFT SUMMARY PT RESTING QUIETLY AT START OF SHIFT. NO C/O. DENIED PAIN AT THAT TIME. PT LATER REQUESTED OXYCODONE FOR PAIN; GIVEN PER EMAR. PT UP WITH 1P ASSIST NEEDED TO BTHRM. PT WANTING TO GO HOME EARLY THIS AM. DR THORNTON IN TO SEE PT. D/C ORDERS PLACED. INSULIN TEACHING GIVEN AT LUNCH AND AGAIN AT D/C. PT EDU ALSO GIVEN AND DISCUSSED WITH PT; VERBALIZED UNDERSTANDIING. PT ABLE TO GIVE HIS OWN INSULIN AT LUNCH. FAMILY IN TO SEE PT AFTER LUNCH, WAITING FOR D/C PAPERS TO BE COMPLETED. IV SITE D/C'D. FAMILY ASSISTED PT OUT TO CAR VIA W/C.
== END 2019-09-30 13:30 | disposition home or self-care (01) | DRG 841 ==
LOC: ER 15:57 → MEDS 15:58 → ENPENDDIS 09-30 12:30 → MEDS 09-30 13:30
PROVIDERS: Hospitalist; Internal Medicine Endocrinology, Diabetes & Metabolism; Internal Medicine Hematology & Oncology; Internal Medicine Nephrology; Physician Assistant; ADMIT Internal Medicine
PROC: 009U3ZX Drainage of Spinal Canal, Percutaneous Approach, Diagnostic (ICD-10-PCS; principal; 2019-09-26)
PROC: B01BZZZ Fluoroscopy of Spinal Cord (ICD-10-PCS; 2019-09-26)
DX: C85.10 Unspecified B-cell lymphoma, unspecified site (principal); N17.9 Acute kidney failure, unspecified; E87.1 Hypo-osmolality and hyponatremia; E11.22 Type 2 diabetes mellitus with diabetic chronic kidney disease; I12.9 Hypertensive chronic kidney disease with stage 1 through stage 4 chronic kidney disease, or unspecified chronic kidney disease; N18.9 Chronic kidney disease, unspecified; D63.1 Anemia in chronic kidney disease; Z79.4 Long term (current) use of insulin; T39.395A Adverse effect of other nonsteroidal anti-inflammatory drugs [NSAID], initial encounter; R33.9 Retention of urine, unspecified; E83.39 Other disorders of phosphorus metabolism; G47.00 Insomnia, unspecified; Z99.81 Dependence on supplemental oxygen; E78.5 Hyperlipidemia, unspecified; G47.33 Obstructive sleep apnea (adult) (pediatric); Z87.891 Personal history of nicotine dependence; E66.01 Morbid (severe) obesity due to excess calories; Z68.37 Body mass index [BMI] 37.0-37.9, adult; E11.65 Type 2 diabetes mellitus with hyperglycemia; H53.2 Diplopia
CPT/HCPCS: 36415; 62270; 70450; 70487; 71260; 74177; 77003; 80048; 80053; 80069; 81003; 81050; 82131; 82140; 82340; 82436; 82507; 82550; 82570; 82784; 82947; 83615; 83735; 83935; 83945; 84100; 84105; 84133; 84156; 84165; 84300; 84392; 84550; 84560; 85007; 85014; 85018; 85025; 85027; 85610; 85651; 85730; 86141; 86704; 87340; 87389; 88271; 88275; 88341; 88342; 93306; 94762; 96374-59; 96375; 96375-59; 96376; 99285-25; A9270; G0103; G0378; J0881; J1100; J1170; J1447; J1650; J1885; J2405; J2783; J3010; J7030; J7040; J7060; J9070; J9312; Q0163; Q9967

== ENCOUNTER 2019-10-05 00:18 | Day surgery (SDC) | payer BC ==
[2019-10-04 10:34] LABS: Hematocrit 22.8 % (37.0-53.0); Hemoglobin 7.4 g/dL (13.5-17.5); Mean Corpuscular HGB 28.2 pg (26.0-34.0); Mean Corpuscular HGB Conc 32.5 g/dL (31.5-36.5); Mean Corpuscular Volume 87 fL (80-100); Mean Platelet Volume 9.5 fL (9.1-12.4); Platelet Count 72 K/mm3 (150-400); RDW Coefficient Variation 13.4 % (11.7-14.2); RDW Standard Deviation 42.4 fL (35.1-46.3); Red Blood Cell Count 2.62 M/mm3 (4.30-5.90)
[2019-10-04 10:44] LABS: Alanine Aminotransfer (ALT/SGP 156 U/L (12-78); Albumin, Blood 2.2 g/dL (3.4-5.0); Albumin/Globulin Ratio 0.7 (0.8-1.8); Alk Phos 105 U/L (50-136); Anion Gap 8 mmol/L (6-16); Aspartate Aminotrans (AST/SGOT 68 U/L (12-37); Bilirubin, Total 0.4 mg/dL (0.1-1.0); Blood Urea Nitrogen 10 mg/dL (8-24); Bun/Creatinine Ratio 14.3 (12.0-20.0); CO2, Blood 24 mmol/L (21-32); Calcium, Blood 7.6 mg/dL (8.5-10.1); Chloride, Blood 106 mmol/L (98-108); Glomerular Filtration Rate >60 (60-); Glucose, Blood 234 mg/dL (70-99); Potassium, Blood 3.3 mmol/L (3.5-5.5); Sodium, Blood 138 mmol/L (136-145); Total Protein, Blood 5.2 g/dL (6.4-8.2)
[2019-10-04 10:45] LABS: BASOPHILS PERCENT AUTO 0 % (0-2); EOSINOPHILS ABSOLUTE AUTO 0.02 K/mm3 (0.00-0.68); EOSINOPHILS PERCENT AUTO 3 % (0-6); IMMATURE GRAN ABSOLUTE AUTO 0.01 K/mm3 (0.00-0.10); IMMATURE GRAN PERCENT AUTO 1 % (0-1); LYMPHOCYTES ABSOLUTE AUTO 0.52 K/mm3 (0.84-5.20); LYMPHOCYTES PERCENT AUTO 73 % (21-46); MONOCYTES ABSOLUTE AUTO 0.07 K/mm3 (0.16-1.47); MONOCYTES PERCENT AUTO 10 % (4-13); NEUTROPHILS ABSOLUTE AUTO 0.09 K/mm3 (1.96-9.15); NEUTROPHILS PERCENT AUTO 13 % (41-73)
[2019-10-04 10:46] LABS: White Blood Cell Count 0.71 K/mm3 (4.00-11.30)
[~2019-10-05 00:18] MED LIST changes: +ACET500 PO; +AMLO10; +ATOR40TA PO; +Aspir 8181 MG PO; +BASAGLAR K100 UNIT/1 SC; +CARB200 PO; +DIAZ5 PO; +DOCU100 PO; +FAMO20 PO; +Humalog Mi100 UNIT/4 SC; +Milk Of Ma400 MG/5 M PO; +OXYC5 PO; +PIOG15 PO; +TAMS.4ER PO; +TIZA4 PO; +Vitamin D2000 UNIT PO
== END 2019-10-05 11:33 | disposition home or self-care (01) ==
LOC: ATC 00:18
PROVIDERS: Internal Medicine Hematology & Oncology
DX: C83.79 Burkitt lymphoma, extranodal and solid organ sites (principal); D63.0 Anemia in neoplastic disease; E11.9 Type 2 diabetes mellitus without complications; E78.5 Hyperlipidemia, unspecified; Z87.891 Personal history of nicotine dependence; Z79.4 Long term (current) use of insulin; Z79.899 Other long term (current) drug therapy
CPT/HCPCS: 36430; 80053; 85025; 86850; 86900; 86901; 86923; 96372; J1447; J7050; P9016

== ENCOUNTER 2019-10-23 13:38 | Day surgery (SDC) | payer BC ==
[2019-10-23 14:46] LABS: Hematocrit 25.3 % (37.0-53.0); Hemoglobin 8.3 g/dL (13.5-17.5); Mean Corpuscular HGB 29.1 pg (26.0-34.0); Mean Corpuscular HGB Conc 32.8 g/dL (31.5-36.5); Mean Corpuscular Volume 89 fL (80-100); Mean Platelet Volume 9.5 fL (9.1-12.4); Platelet Count 118 K/mm3 (150-400); RDW Coefficient Variation 14.2 % (11.7-14.2); RDW Standard Deviation 46.2 fL (35.1-46.3); Red Blood Cell Count 2.85 M/mm3 (4.30-5.90)
[2019-10-23 15:03] LABS: Lactate Dehydrogenase (Ld),Bld 136 U/L (100-240); Magnesium, Blood 2.1 mg/dL (1.6-2.4); Uric Acid, Blood 3.3 mg/dL (3.5-7.2)
[2019-10-23 15:07] LABS: Alanine Aminotransfer (ALT/SGP 22 U/L (12-78); Albumin, Blood 3.1 g/dL (3.4-5.0); Albumin/Globulin Ratio 1.1 (0.8-1.8); Alk Phos 144 U/L (50-136); Anion Gap 9 mmol/L (6-16); Aspartate Aminotrans (AST/SGOT 5 U/L (12-37); Bilirubin, Total 0.7 mg/dL (0.1-1.0); Blood Urea Nitrogen 24 mg/dL (8-24); Bun/Creatinine Ratio 41.7 (12.0-20.0); CO2, Blood 27 mmol/L (21-32); Calcium, Blood 8.9 mg/dL (8.5-10.1); Chloride, Blood 100 mmol/L (98-108); Creatinine, Blood 0.58 mg/dL (0.60-1.20); Globulin, Blood 2.7 g/dL (2.2-4.0); Glomerular Filtration Rate >60 (60-); Glucose, Blood 270 mg/dL (70-99); Phosphorus, Blood 4.4 mg/dL (2.5-4.9); Potassium, Blood 4.3 mmol/L (3.5-5.5); Sodium, Blood 136 mmol/L (136-145); Total Protein, Blood 5.8 g/dL (6.4-8.2)
[2019-10-23 15:32] LABS: BASOPHILS PERCENT AUTO 0 % (0-2); EOSINOPHILS PERCENT AUTO 0 % (0-6); IMMATURE GRAN ABSOLUTE AUTO 0.01 K/mm3 (0.00-0.10); IMMATURE GRAN PERCENT AUTO 9 % (0-1); LYMPHOCYTES ABSOLUTE AUTO 0.07 K/mm3 (0.84-5.20); LYMPHOCYTES PERCENT AUTO 64 % (21-46); MONOCYTES ABSOLUTE AUTO 0.01 K/mm3 (0.16-1.47); MONOCYTES PERCENT AUTO 9 % (4-13); NEUTROPHILS ABSOLUTE AUTO 0.02 K/mm3 (1.96-9.15); NEUTROPHILS PERCENT AUTO 18 % (41-73)
[2019-10-23 15:34] LABS: White Blood Cell Count 0.11 K/mm3 (4.00-11.30)
== END 2019-10-23 22:44 | disposition home or self-care (01) ==
LOC: ATC 13:38
PROVIDERS: Internal Medicine Hematology & Oncology
DX: C83.79 Burkitt lymphoma, extranodal and solid organ sites (principal); G89.3 Neoplasm related pain (acute) (chronic); E11.9 Type 2 diabetes mellitus without complications; E78.5 Hyperlipidemia, unspecified; D64.9 Anemia, unspecified; Z79.899 Other long term (current) drug therapy; Z87.891 Personal history of nicotine dependence; Z79.4 Long term (current) use of insulin
CPT/HCPCS: 80053; 83615; 83735; 84100; 84550; 85025; 99211

== ENCOUNTER 2019-10-25 00:38 | Day surgery (SDC) | payer BC ==
[2019-10-25 14:08] LABS: Hematocrit 25.2 % (37.0-53.0); Hemoglobin 8.4 g/dL (13.5-17.5); Mean Corpuscular HGB 29.5 pg (26.0-34.0); Mean Corpuscular HGB Conc 33.3 g/dL (31.5-36.5); Mean Corpuscular Volume 88 fL (80-100); Mean Platelet Volume 11.1 fL (9.1-12.4); Platelet Count 67 K/mm3 (150-400); RDW Coefficient Variation 14.1 % (11.7-14.2); RDW Standard Deviation 45.6 fL (35.1-46.3); Red Blood Cell Count 2.85 M/mm3 (4.30-5.90)
[2019-10-25 14:22] LABS: Alanine Aminotransfer (ALT/SGP 29 U/L (12-78); Albumin/Globulin Ratio 1.1 (0.8-1.8); Alk Phos 132 U/L (50-136); Anion Gap 14 mmol/L (6-16); Aspartate Aminotrans (AST/SGOT 3 U/L (12-37); Bilirubin, Total 0.7 mg/dL (0.1-1.0); Blood Urea Nitrogen 29 mg/dL (8-24); CO2, Blood 24 mmol/L (21-32); Calcium, Blood 8.3 mg/dL (8.5-10.1); Chloride, Blood 98 mmol/L (98-108); Creatinine, Blood 0.71 mg/dL (0.60-1.20); Globulin, Blood 2.7 g/dL (2.2-4.0); Glomerular Filtration Rate >60 (60-); Glucose, Blood 256 mg/dL (70-99); Lactate Dehydrogenase (Ld),Bld 123 U/L (100-240); Phosphorus, Blood 4.1 mg/dL (2.5-4.9); Potassium, Blood 4.1 mmol/L (3.5-5.5); Sodium, Blood 136 mmol/L (136-145); Total Protein, Blood 5.7 g/dL (6.4-8.2); Uric Acid, Blood 4.4 mg/dL (3.5-7.2)
[2019-10-25 14:24] LABS: BASOPHILS PERCENT AUTO 0 % (0-2); EOSINOPHILS PERCENT AUTO 0 % (0-6); IMMATURE GRAN PERCENT AUTO 0 % (0-1); LYMPHOCYTES ABSOLUTE AUTO 0.03 K/mm3 (0.84-5.20); LYMPHOCYTES PERCENT AUTO 7 % (21-46); MONOCYTES ABSOLUTE AUTO 0.19 K/mm3 (0.16-1.47); MONOCYTES PERCENT AUTO 43 % (4-13); NEUTROPHILS ABSOLUTE AUTO 0.22 K/mm3 (1.96-9.15); NEUTROPHILS PERCENT AUTO 50 % (41-73)
[2019-10-25 14:26] LABS: Alanine Aminotransfer (ALT/SGP 30 U/L (12-78); Albumin/Globulin Ratio 1.1 (0.8-1.8); Alk Phos 131 U/L (50-136); Anion Gap 12 mmol/L (6-16); Aspartate Aminotrans (AST/SGOT 4 U/L (12-37); Bilirubin, Direct 0.2 mg/dL (0.0-0.3); Bilirubin, Indirect 0.4 mg/dL (0.1-0.7); Bilirubin, Total 0.6 mg/dL (0.1-1.0); Blood Urea Nitrogen 30 mg/dL (8-24); Bun/Creatinine Ratio 39.8 (12.0-20.0); CO2, Blood 23 mmol/L (21-32); Calcium, Blood 8.2 mg/dL (8.5-10.1); Chloride, Blood 98 mmol/L (98-108); Creatinine, Blood 0.75 mg/dL (0.60-1.20); Globulin, Blood 2.8 g/dL (2.2-4.0); Glomerular Filtration Rate >60 (60-); Glucose, Blood 260 mg/dL (70-99); Percent Saturation 88.1 % (20.0-50.0); Phosphorus, Blood 4.2 mg/dL (2.5-4.9); Potassium, Blood 4.1 mmol/L (3.5-5.5); Sodium, Blood 133 mmol/L (136-145); Total Protein, Blood 5.8 g/dL (6.4-8.2); White Blood Cell Count 0.44 K/mm3 (4.00-11.30)
[2019-10-25 14:46] LABS: Thyroid Stimulating Hormone 0.197 uIU/mL (0.360-4.800)
== END 2019-10-25 23:16 | disposition home or self-care (01) ==
LOC: ATC 00:38
PROVIDERS: Internal Medicine Hematology & Oncology; Internal Medicine Nephrology
DX: C83.79 Burkitt lymphoma, extranodal and solid organ sites (principal); E11.9 Type 2 diabetes mellitus without complications; E78.5 Hyperlipidemia, unspecified; D64.9 Anemia, unspecified; Z87.891 Personal history of nicotine dependence; Z79.4 Long term (current) use of insulin; Z79.899 Other long term (current) drug therapy
CPT/HCPCS: 36592; 80053; 82248; 82607; 82728; 82746; 83540; 83550; 83615; 83735; 83970; 84100; 84443; 84550; 85025

== ENCOUNTER 2019-10-29 00:07 | Day surgery (SDC) | payer BC ==
[2019-10-29 11:37] LABS: Hemoglobin 9.1 g/dL (13.5-17.5); Mean Corpuscular HGB 29.9 pg (26.0-34.0); Mean Corpuscular HGB Conc 32.5 g/dL (31.5-36.5); Mean Platelet Volume 10.2 fL (9.1-12.4); NRBC Auto 0.9 /100 WBC (0.0-0.2); Platelet Count 160 K/mm3 (150-400); RDW Coefficient Variation 16.8 % (11.7-14.2); RDW Standard Deviation 47.3 fL (35.1-46.3); Red Blood Cell Count 3.04 M/mm3 (4.30-5.90); White Blood Cell Count 10.82 K/mm3 (4.00-11.30)
[2019-10-29 11:38] LABS: Mean Corpuscular Volume 92 fL (80-100)
[2019-10-29 12:11] LABS: Alanine Aminotransfer (ALT/SGP 22 U/L (12-78); Albumin, Blood 2.7 g/dL (3.4-5.0); Alk Phos 125 U/L (50-136); Anion Gap 10 mmol/L (6-16); Aspartate Aminotrans (AST/SGOT 5 U/L (12-37); Bilirubin, Total 0.5 mg/dL (0.1-1.0); Blood Urea Nitrogen 19 mg/dL (8-24); CO2, Blood 26 mmol/L (21-32); Calcium, Blood 8.2 mg/dL (8.5-10.1); Chloride, Blood 100 mmol/L (98-108); Creatinine, Blood 0.83 mg/dL (0.60-1.20); Globulin, Blood 2.6 g/dL (2.2-4.0); Glomerular Filtration Rate >60 (60-); Glucose, Blood 180 mg/dL (70-99); Lactate Dehydrogenase (Ld),Bld 224 U/L (100-240); Phosphorus, Blood 4.4 mg/dL (2.5-4.9); Potassium, Blood 3.6 mmol/L (3.5-5.5); Sodium, Blood 136 mmol/L (136-145); Total Protein, Blood 5.3 g/dL (6.4-8.2); Uric Acid, Blood 5.1 mg/dL (3.5-7.2)
[2019-10-29 12:26] LABS: BAND PERCENT MAN 6 % (0-8); BASOPHILS PERCENT MAN 0 % (0-2); EOSINOPHILS PERCENT MAN 0 % (0-6); LYMPHOCYTES ABSOLUTE MAN 0.75 K/mm3 (0.84-5.20); LYMPHOCYTES PERCENT MAN 7 % (21-46); METAMYELOCYTE ABSOLUTE MAN 0.32 K/mm3 (0.00-0.00); METAMYELOCYTE PERCENT MAN 3 % (0-0); MONOCYTES ABSOLUTE MAN 0.75 K/mm3 (0.16-1.47); MONOCYTES PERCENT MAN 7 % (4-13); MYELOCYTE ABSOLUTE MAN 0.64 K/mm3 (0.00-0.00); MYELOCYTE PERCENT MAN 6 % (0-0); NEUTROPHILS ABSOLUTE MAN 8.33 K/mm3 (1.96-9.15); SEG NEUTROPHILS PERCENT MAN 71 % (41-73); TOTAL CELLS COUNTED 100
== END 2019-10-29 11:20 | disposition home or self-care (01) ==
LOC: ATC 00:07
PROVIDERS: Internal Medicine Hematology & Oncology
DX: C83.79 Burkitt lymphoma, extranodal and solid organ sites (principal); E11.22 Type 2 diabetes mellitus with diabetic chronic kidney disease; N18.2 Chronic kidney disease, stage 2 (mild); D63.1 Anemia in chronic kidney disease; N25.81 Secondary hyperparathyroidism of renal origin; E78.00 Pure hypercholesterolemia, unspecified; D52.8 Other folate deficiency anemias; D50.9 Iron deficiency anemia, unspecified; D51.8 Other vitamin B12 deficiency anemias; E55.9 Vitamin D deficiency, unspecified; E78.5 Hyperlipidemia, unspecified; G89.3 Neoplasm related pain (acute) (chronic); R63.4 Abnormal weight loss; Z79.4 Long term (current) use of insulin; Z79.899 Other long term (current) drug therapy; Z87.891 Personal history of nicotine dependence; Z68.35 Body mass index [BMI] 35.0-35.9, adult
CPT/HCPCS: 36592; 80053; 83615; 83735; 84100; 84550; 85025

== ENCOUNTER 2019-10-31 18:14 | Observation (INO) | payer OTHER, BC ==
[~2019-10-31] VITALS: Ht 180.3 cm; Wt 111.7 kg
[2019-10-31 19:01] LABS: Hematocrit 26.3 % (37.0-53.0); Hemoglobin 8.5 g/dL (13.5-17.5); Mean Corpuscular HGB 30.4 pg (26.0-34.0); Mean Corpuscular HGB Conc 32.3 g/dL (31.5-36.5); Mean Corpuscular Volume 94 fL (80-100); Mean Platelet Volume 9.2 fL (9.1-12.4); Platelet Count 170 K/mm3 (150-400); RDW Coefficient Variation 17.3 % (11.7-14.2); RDW Standard Deviation 50.5 fL (35.1-46.3); White Blood Cell Count 6.55 K/mm3 (4.00-11.30)
[2019-10-31 19:20] LABS: Alanine Aminotransfer (ALT/SGP 25 U/L (12-78); Albumin, Blood 2.4 g/dL (3.4-5.0); Albumin/Globulin Ratio 0.9 (0.8-1.8); Alk Phos 104 U/L (50-136); Anion Gap 10 mmol/L (6-16); Aspartate Aminotrans (AST/SGOT 11 U/L (12-37); Bilirubin, Total 0.4 mg/dL (0.1-1.0); Blood Urea Nitrogen 18 mg/dL (8-24); Bun/Creatinine Ratio 17.6 (12.0-20.0); CO2, Blood 22 mmol/L (21-32); Calcium, Blood 7.9 mg/dL (8.5-10.1); Chloride, Blood 102 mmol/L (98-108); Creatinine, Blood 1.02 mg/dL (0.60-1.20); Globulin, Blood 2.7 g/dL (2.2-4.0); Glomerular Filtration Rate >60 (60-); Glucose, Blood 295 mg/dL (70-99); Potassium, Blood 4.1 mmol/L (3.5-5.5); Sodium, Blood 134 mmol/L (136-145); Total Protein, Blood 5.1 g/dL (6.4-8.2)
[2019-10-31 19:27] LABS: BAND PERCENT MAN 12 % (0-8); BASOPHILS PERCENT MAN 0 % (0-2); EOSINOPHILS PERCENT MAN 0 % (0-6); LYMPHOCYTES ABSOLUTE MAN 0.06 K/mm3 (0.84-5.20); LYMPHOCYTES PERCENT MAN 1 % (21-46); METAMYELOCYTE ABSOLUTE MAN 0.13 K/mm3 (0.00-0.00); METAMYELOCYTE PERCENT MAN 2 % (0-0); MONOCYTES ABSOLUTE MAN 0.45 K/mm3 (0.16-1.47); MONOCYTES PERCENT MAN 7 % (4-13); MYELOCYTE ABSOLUTE MAN 0.19 K/mm3 (0.00-0.00); MYELOCYTE PERCENT MAN 3 % (0-0); NEUTROPHILS ABSOLUTE MAN 5.69 K/mm3 (1.96-9.15); SEG NEUTROPHILS PERCENT MAN 75 % (41-73); TOTAL CELLS COUNTED 100
[2019-10-31 19:29] LABS: Prothrombin Time Results 10.7 Sec (9.7-11.5)
[2019-10-31 21:23] LABS: Adenovirus Not Detected (NOT DETECT); Bordetella pertussis Not Detected (NOT DETECT); Chlamydophila pneumoniae Not Detected (NOT DETECT); Coronavirus 229E Not Detected (NOT DETECT); Coronavirus HKU1 Not Detected (NOT DETECT); Coronavirus NL63 Not Detected (NOT DETECT); Coronavirus OC43 Not Detected (NOT DETECT); Human Metapneumovirus Not Detected (NOT DETECT); Human Rhinovirus/Enterovirus Not Detected (NOT DETECT); Influenza A Not Detected (NOT DETECT); Influenza A/2009-H1 Not Detected (NOT DETECT); Influenza A/H1 Not Detected (NOT DETECT); Influenza A/H3 Not Detected (NOT DETECT); Influenza B Not Detected (NOT DETECT); Mycoplasma pneumoniae Not Detected (NOT DETECT); Parainfluenza Virus 1 Detected (NOT DETECT); Parainfluenza Virus 2 Not Detected (NOT DETECT); Parainfluenza Virus 3 Not Detected (NOT DETECT); Parainfluenza Virus 4 Not Detected (NOT DETECT); Respiratory Syncytial Virus Not Detected (NOT DETECT)
[2019-10-31 22:41] LABS: Source, Urine Clean Catch
[2019-10-31 22:47] LABS: Bilirubin, Urine Neg (Neg); Blood, Urine Neg (Neg); Glucose Qualitative, Urine 3+ (Neg); Ketones, Urine Neg (Neg); Leukocyte Esterase, Urine Neg (Neg); Nitrite, Urine Neg (Neg); Protein, Urine Neg (Neg); Specific Gravity, Urine 1.025 (1.003-1.022); Urobilinogen, Urine NORM (Normal)
[2019-10-31 23:19] LABS: Appearance, Urine Clear (Clear); Color, Urine Yellow (P-Yellow)
--- NOTE | 2019-11-01 01:15 | NUR ---
RECEIVED REPORT FROM SUSANNAH ARGUETA RN. PT TRANSPORTED TO PCU VIA GURNEY. IN NO ACUTE DISTRESS AT THIS TIME, DENIES CHEST PAIN OR PRESSURE, SOB, BP STABLE AT THIS TIME. WILL CONTINUE TO MONITOR.
[2019-11-01 05:38] LABS: Alanine Aminotransfer (ALT/SGP 19 U/L (12-78); Albumin/Globulin Ratio 0.8 (0.8-1.8); Alk Phos 83 U/L (50-136); Anion Gap 5 mmol/L (6-16); Aspartate Aminotrans (AST/SGOT 10 U/L (12-37); Bilirubin, Total 0.3 mg/dL (0.1-1.0); Blood Urea Nitrogen 17 mg/dL (8-24); Bun/Creatinine Ratio 22.7 (12.0-20.0); CO2, Blood 26 mmol/L (21-32); Calcium, Blood 7.6 mg/dL (8.5-10.1); Chloride, Blood 110 mmol/L (98-108); Creatinine, Blood 0.75 mg/dL (0.60-1.20); Globulin, Blood 2.4 g/dL (2.2-4.0); Glomerular Filtration Rate >60 (60-); Glucose, Blood 182 mg/dL (70-99); Potassium, Blood 3.8 mmol/L (3.5-5.5); Sodium, Blood 141 mmol/L (136-145); Total Protein, Blood 4.4 g/dL (6.4-8.2)
--- NOTE | 2019-11-01 07:15 | NUR ---
PT RESTING IN BED COMFORTABLY AT THIS TIME, IN NO ACUTE DISTRESS. WAS MONITORED EVERY 1-2 HOURS WITH NEEDS MET. DENIES ANY NEEDS AT THIS TIME. CALL LIGHT AND POSSESSIONS IN REACH, FAMILY AT THE BEDSIDE.
--- NOTE | 2019-11-01 07:30 | NUR ---
AM ASSESSMENT: PT A+Ox3. PLEASANT AND COOPERATIVE WITH CARE. AFFECT SOMEWHAT FLAT. PT REPORTS 6/10 HEADACHE PAIN, WHICH HAS NOT BEEN ENTIRELY RELIEVED WITH PERCOCET. OFFERRED HEAT OR OTHER THERAPIES WHICH PT DECLINED. PT IS EAGER TO DISCHARGE HOME, HE HAS HIS NEXT ROUND OF CHEMO STARTING TOMORROW. LUNGS ARE CLEAR T/O BILATERALLY, SLIGHTLY DIMINISHED IN THE BILATERAL BASES. SP02 SATS >90% ON RA. HR REGULAR, SR-80'S RANGE. PT VOIDING PER URINAL, NO VOID YET THIS AM. PT TO BE GIVEN BOWEL CARE MEDICATIONS. PT AFEBRILE THIS AM.
--- NOTE | 2019-11-01 11:30 | NUR ---
PT UPDATE: PT C/O INCREASING HEADACHE PAIN 03/26. PT NOT YET DUE FOR PERCOCET. OFFERRED TYLENOL, WHICH PT DECLINED. PT EAGER TO BE DISCHARGED HE HAS THE NEXT ROUND OF HIS CHEMOTHERAPY STARTING TOMORROW [place]. WILL CALL DR CAPUTO RE: PAIN/POTENTIAL DISCHARGE.
--- NOTE | 2019-11-01 11:40 | NUR ---
Spiritual care visit conducted. Patient is lying in bed and alert. Patient openly shares about his medical history, his family and his support system. We talk about his rastafari background and if it has any baring with his cancer weller. We talk about the similarities/differences with my cancer weller and his and what our take aways are from it. I listen empathically, normalize patient's experience, reinforce helpful attitudes and practices, conduct a life review, and provide grief support, companionship and prayer. Patient responds well and voices appreciation for the visit. I will continue to remain available to patient and family.
--- NOTE | 2019-11-01 11:45 | NUR ---
DR CAPUTO: SPOKE WITH DR CAPUTO RE: HEADACHE/POTENTIAL DISCHARGE. AWAITING DR CAPUTO TO ASSESS PT. SEE NEW ORDERS.
[2019-11-01] MEDS ORDERED: LEVFLO500 PO (13:23)
[2019-11-01 13:33] LABS: Hematocrit 22.5 % (37.0-53.0); Hemoglobin 7.2 g/dL (13.5-17.5); Mean Corpuscular HGB 30.6 pg (26.0-34.0); Mean Corpuscular Volume 96 fL (80-100); Mean Platelet Volume 9.3 fL (9.1-12.4); Platelet Count 163 K/mm3 (150-400); RDW Coefficient Variation 17.9 % (11.7-14.2); RDW Standard Deviation 54.4 fL (35.1-46.3); Red Blood Cell Count 2.35 M/mm3 (4.30-5.90); White Blood Cell Count 4.17 K/mm3 (4.00-11.30)
--- NOTE | 2019-11-01 13:56 | NUR ---
DISCHARGE NOTE: WRITTEN/VERBAL DISCHARGE INSTRUCTIONS GIVEN TO PT/ AT THE BEDSIDE RE: MEDICATIONS/FOLLOW UP APPTS. PT TO KEEP PICC IN THE LT UA, IT WAS PLACED BY [facility] AND USED FOR CHEMOTHERAPY. PT ESCORTED VIA W/C BY . ALL PERSONAL BELONGINGS TAKEN WITH PT.
[2019-11-01 14:19] LABS: BAND PERCENT MAN 17 % (0-8); BASOPHILS PERCENT MAN 0 % (0-2); EOSINOPHILS PERCENT MAN 0 % (0-6); LYMPHOCYTES ABSOLUTE MAN 0.12 K/mm3 (0.84-5.20); LYMPHOCYTES PERCENT MAN 3 % (21-46); METAMYELOCYTE ABSOLUTE MAN 0.25 K/mm3 (0.00-0.00); METAMYELOCYTE PERCENT MAN 6 % (0-0); MONOCYTES ABSOLUTE MAN 0.25 K/mm3 (0.16-1.47); MONOCYTES PERCENT MAN 6 % (4-13); MYELOCYTE ABSOLUTE MAN 0.08 K/mm3 (0.00-0.00); MYELOCYTE PERCENT MAN 2 % (0-0); NEUTROPHILS ABSOLUTE MAN 3.41 K/mm3 (1.96-9.15); PROMYELOCYTE ABSOLUTE MAN 0.04 K/mm3 (0.00-0.00); PROMYELOCYTE PERCENT MAN 1 % (0-0); SEG NEUTROPHILS PERCENT MAN 65 % (41-73); TOTAL CELLS COUNTED 100
== END 2019-11-01 14:13 | disposition home or self-care (01) ==
LOC: ER 18:14 → PCU 18:15
PROVIDERS: Internal Medicine; Nurse Practitioner Acute Care; Physician Assistant; ADMIT Internal Medicine
DX: R50.9 Fever, unspecified (principal); C83.70 Burkitt lymphoma, unspecified site; I95.9 Hypotension, unspecified; B34.8 Other viral infections of unspecified site; D70.2 Other drug-induced agranulocytosis; T50.905A Adverse effect of unspecified drugs, medicaments and biological substances, initial encounter; I12.9 Hypertensive chronic kidney disease with stage 1 through stage 4 chronic kidney disease, or unspecified chronic kidney disease; E11.22 Type 2 diabetes mellitus with diabetic chronic kidney disease; N18.9 Chronic kidney disease, unspecified; D63.1 Anemia in chronic kidney disease; E78.5 Hyperlipidemia, unspecified; E66.9 Obesity, unspecified; G47.00 Insomnia, unspecified; E11.40 Type 2 diabetes mellitus with diabetic neuropathy, unspecified; G47.33 Obstructive sleep apnea (adult) (pediatric); Z87.891 Personal history of nicotine dependence; Z79.1 Long term (current) use of non-steroidal anti-inflammatories (NSAID); Z79.4 Long term (current) use of insulin; Z79.899 Other long term (current) drug therapy; Z99.89 Dependence on other enabling machines and devices; Z68.34 Body mass index [BMI] 34.0-34.9, adult
CPT/HCPCS: 0099U; 36415; 71046; 80053; 81003; 82947; 83605; 84145; 85025; 85610; 87040; 93005; 93010; 94660; 94762; 96361; 96365; 96367; 99285-25; G0378; J0692; J2543; J7030; J7120

== ENCOUNTER 2019-11-01 00:15 | Day surgery (SDC) | payer BC ==
[2019-11-01] MEDS ORDERED: LEVFLO500 PO (13:23)
== END 2019-11-01 23:28 | disposition home or self-care (01) ==
LOC: ATC 00:15
DX: C83.79 Burkitt lymphoma, extranodal and solid organ sites (principal); E11.22 Type 2 diabetes mellitus with diabetic chronic kidney disease; N18.2 Chronic kidney disease, stage 2 (mild); D63.1 Anemia in chronic kidney disease; N25.81 Secondary hyperparathyroidism of renal origin; E78.00 Pure hypercholesterolemia, unspecified; D52.8 Other folate deficiency anemias; D50.9 Iron deficiency anemia, unspecified; D51.8 Other vitamin B12 deficiency anemias; E55.9 Vitamin D deficiency, unspecified; E78.5 Hyperlipidemia, unspecified; G89.3 Neoplasm related pain (acute) (chronic); R63.4 Abnormal weight loss; Z79.4 Long term (current) use of insulin; Z79.899 Other long term (current) drug therapy; Z87.891 Personal history of nicotine dependence; Z68.35 Body mass index [BMI] 35.0-35.9, adult

== ENCOUNTER 2019-11-12 14:50 | Inpatient (IN) | payer OTHER, BC ==
[~2019-11-12] VITALS: Ht 180.3 cm; Wt 114.0 kg
[~2019-11-12 14:50] MED LIST changes: +LEVFLO500 PO
[2019-11-12 15:45] LABS: Hematocrit 19.7 % (37.0-53.0); Hemoglobin 6.6 g/dL (13.5-17.5); Mean Corpuscular HGB 30.6 pg (26.0-34.0); Mean Corpuscular HGB Conc 33.5 g/dL (31.5-36.5); Mean Corpuscular Volume 91 fL (80-100); Mean Platelet Volume 10.2 fL (9.1-12.4); RDW Coefficient Variation 13.8 % (11.7-14.2); RDW Standard Deviation 44.6 fL (35.1-46.3); Red Blood Cell Count 2.16 M/mm3 (4.30-5.90)
[2019-11-12 15:46] LABS: BASOPHILS ABSOLUTE AUTO 0.01 K/mm3 (0.00-0.23); BASOPHILS PERCENT AUTO 8 % (0-2); EOSINOPHILS PERCENT AUTO 0 % (0-6); IMMATURE GRAN ABSOLUTE AUTO 0.02 K/mm3 (0.00-0.10); IMMATURE GRAN PERCENT AUTO 15 % (0-1); LYMPHOCYTES ABSOLUTE AUTO 0.05 K/mm3 (0.84-5.20); LYMPHOCYTES PERCENT AUTO 39 % (21-46); MONOCYTES ABSOLUTE AUTO 0.02 K/mm3 (0.16-1.47); MONOCYTES PERCENT AUTO 15 % (4-13); NEUTROPHILS ABSOLUTE AUTO 0.03 K/mm3 (1.96-9.15); NEUTROPHILS PERCENT AUTO 23 % (41-73)
[2019-11-12 15:47] LABS: Platelet Count 9 K/mm3 (150-400); White Blood Cell Count 0.13 K/mm3 (4.00-11.30)
[2019-11-12 15:54] LABS: International Normalized Ratio 1.09; Prothrombin Time Results 11.6 Sec (9.7-11.5)
[2019-11-12] MEDS ORDERED: ACYC800 PO (15:59)
[2019-11-12] MEDS ORDERED: ACET325 (15:59)
[2019-11-12] MEDS ORDERED: NEUPOGEN480 MCG/0. SC (16:00)
[2019-11-12] MEDS ORDERED: Diclofenac Sod2.5 ML (16:00)
[2019-11-12] MEDS ORDERED: Zanaflex4 M1 PO (16:01)
[2019-11-12] MEDS ORDERED: FLUC200 PO (16:01)
[2019-11-12 16:02] LABS: Alanine Aminotransfer (ALT/SGP 32 U/L (12-78); Albumin, Blood 2.2 g/dL (3.4-5.0); Albumin/Globulin Ratio 0.6 (0.8-1.8); Alk Phos 91 U/L (50-136); Anion Gap 9 mmol/L (6-16); Aspartate Aminotrans (AST/SGOT 19 U/L (12-37); Bilirubin, Total 0.8 mg/dL (0.1-1.0); Blood Urea Nitrogen 16 mg/dL (8-24); Bun/Creatinine Ratio 17.1 (12.0-20.0); CO2, Blood 24 mmol/L (21-32); Calcium, Blood 8.6 mg/dL (8.5-10.1); Chloride, Blood 103 mmol/L (98-108); Creatinine, Blood 0.94 mg/dL (0.60-1.20); Glomerular Filtration Rate >60 (60-); Glucose, Blood 194 mg/dL (70-99); Potassium, Blood 3.9 mmol/L (3.5-5.5); Sodium, Blood 136 mmol/L (136-145); Total Protein, Blood 6.2 g/dL (6.4-8.2)
[2019-11-12] MEDS ORDERED: PROC5 PO (16:02)
[2019-11-12] MEDS ORDERED: PIOG15 PO (16:02)
[2019-11-12] MEDS ORDERED: LEUCOVORIN CALC (16:03)
[2019-11-12] MEDS ORDERED: LIPITOR80 MG PO (19:05)
[2019-11-12] MEDS ORDERED: B-121000 MC3 PO (19:05)
[2019-11-12] MEDS ORDERED: PIOGLITAZONE HC30 MG PO (19:06)
[2019-11-12] MEDS ORDERED: ACET325 PO (19:42)
[2019-11-12] MEDS ORDERED: ARTIFICIAL TEAR30 ML BOTHEYES (19:47)
[2019-11-12] MEDS ORDERED: diclofenac BOTHEYES (19:53)
[2019-11-12] MEDS ORDERED: LEVFLO500 PO (20:21)
--- NOTE | 2019-11-12 20:55 | NUR ---
HS MEDS RECIEVED AFTER VERIFICATION W/PHARMACY AND MED REC COMPLETED. PT REFUSED FLU VACCINE D/T HAVING PRIOR TO ADMISSION AND ALSO REFUSE COLACE.
--- NOTE | 2019-11-12 21:12 | NUR ---
RESP PANEL AND INFLUENZA A&B SWAB OBTAINED AND SENT TO LAB, AWAITING RESULTS.
--- NOTE | 2019-11-12 21:15 | NUR ---
2ND IV PLACED W/US TO R.FA BY MELITA NANCE D/T PT NEEDING IVF + ABX, BLOOD AND PLATELETS.
--- NOTE | 2019-11-12 21:38 | NUR ---
1 UNIT IRRADIATED RBC'S COMMENCED AT 2119. PT HAS TOLERATED TRANSFUSION W/O S/S REACTION OR ADVERSE EVENT THUS FAR. HE DENIES ALL S/S DISTRESS. VSS, AFEBRILE AND LS CLEAR T/O PRIOR TO STARTING TRANSFUSION. BLOOD WAS CHECKED W/2ND RN, SHALINI BATES.
[2019-11-12 22:23] LABS: Adenovirus Not Detected (NOT DETECT); Bordetella pertussis Not Detected (NOT DETECT); Chlamydophila pneumoniae Not Detected (NOT DETECT); Coronavirus 229E Not Detected (NOT DETECT); Coronavirus HKU1 Not Detected (NOT DETECT); Coronavirus NL63 Not Detected (NOT DETECT); Coronavirus OC43 Not Detected (NOT DETECT); Human Metapneumovirus Not Detected (NOT DETECT); Human Rhinovirus/Enterovirus Not Detected (NOT DETECT); Influenza A Not Detected (NOT DETECT); Influenza A/2009-H1 Not Detected (NOT DETECT); Influenza A/H1 Not Detected (NOT DETECT); Influenza A/H3 Not Detected (NOT DETECT); Influenza B Not Detected (NOT DETECT); Mycoplasma pneumoniae Not Detected (NOT DETECT); Parainfluenza Virus 1 Detected (NOT DETECT); Parainfluenza Virus 2 Not Detected (NOT DETECT); Parainfluenza Virus 3 Not Detected (NOT DETECT); Parainfluenza Virus 4 Not Detected (NOT DETECT); Respiratory Syncytial Virus Not Detected (NOT DETECT)
--- NOTE | 2019-11-12 23:07 | NUR ---
ALERTED TO TEMP NOW 101.O THAT HAS GRADUALLY TRENDED UPWARD FROM 97.9 AT BEGINNGING OF TRANSFUSION. ALSO INFORMED HER OF TACHYPNEA W/RR 24-30 WHICH SHE THINKS IS RELATED TO HIS TEMP. SHE WAS MADE AWARE OF TESTING (+) FOR PARAINFLUENZA 1 WHICH SHE SAID HE'D HAD UPON HIS PREVIOUS RECENT ADMISSION. SHE INSTRUCTED TO KEEP A CLOSE EYE ON HIS TEMP BUT CONTINUE W/THE BLOOD TRANSFUSION. SHE DOESN'T BELIEVE HE IS HAVING AND ADVERSE REACTION D/T NO ACCOMPANYING S/S.
--- NOTE | 2019-11-12 23:56 | NUR ---
TYLENOL WAS RECIEVED AT 2316 AND TEMP GRADUALLY COMING DOWN, NOW 100.1. STAFF CONTINUING TO MONITOR CLOSELY.
--- NOTE | 2019-11-13 | NUR ---
1ST UNIT PLATELETS COMMENCED AT 2337 AND HE TOLERATED INFUSION W/O S/S REACTION OR ADVERSE EVENT. PT HAS STABLE VITALS ASIDE FROM TEMP WHICH FLUCTUATES BUT HAS TRENDED DOWNWARD. HE CONT'S TO C/O OF ARELLANO AFTER RECIEVING TYLENOL AND OXYCODONE PRN.
--- NOTE | 2019-11-13 00:33 | NUR ---
2ND UNIT OF PLATELETS COMMENCED AT THIS TIME. PT TOLERATED 1ST UNIT OF PLATELETS W/O S/S ADVERSE REACTION.
--- NOTE | 2019-11-13 00:37 | NUR ---
UNCOLLECTED URINE SPECIMEN FROM ER ORDERS WAS NOW OBTAINED AND SENT FOR UA AND CULTURE IF INDICATED, AWAITING RESULTS.
--- NOTE | 2019-11-13 00:47 | NUR ---
PT TOLERATED 2ND UNIT PLATELETS W/O ADVERSE EVENT OR S/S REACTION. TEMP REMAINS ELEVATED AT 100.6 (ORAL) BUT ALL OTHER VITALS STABLE. RR HAS IMPROVED, NOW 16-20 RESPS/MIN. HE CONT'S TO C/O ARELLANO PAIN UNRELIEVED. WCTM CLOSELY AND REPORT ANY NEW/WORSENING FINDINGS TO .
--- NOTE | 2019-11-13 00:55 | NUR ---
CALLED ONCOLOGY CX TO ANSWERING SERVICE ON 11/13/19 AT [id number]
[2019-11-13 04:24] LABS: Source, Urine Voided
[2019-11-13 04:26] LABS: Bilirubin, Urine Neg (Neg); Blood, Urine Neg (Neg); Glucose Qualitative, Urine Neg (Neg); Ketones, Urine Neg (Neg); Leukocyte Esterase, Urine Neg (Neg); Nitrite, Urine Neg (Neg); Protein, Urine 2+ (Neg); Specific Gravity, Urine 1.005 (1.003-1.022); Urobilinogen, Urine NORM (Normal); pH, Urine 6.5 (5.0-8.0)
[2019-11-13 04:37] LABS: Appearance, Urine Clear (Clear); Color, Urine Yellow (P-Yellow)
[2019-11-13 04:38] LABS: Red Blood Cells, Urine 0-2 /hpf (0-2); Squamous Epithelial Cells Not Seen /hpf (Few); White Blood Cells, Urine 0-2 /hpf (0-5)
[2019-11-13 04:39] LABS: Bacteria Mod /hpf
[2019-11-13 04:49] LABS: Hematocrit 18.9 % (37.0-53.0); Hemoglobin 6.4 g/dL (13.5-17.5); Mean Corpuscular HGB 31.7 pg (26.0-34.0); Mean Corpuscular HGB Conc 33.9 g/dL (31.5-36.5); Mean Platelet Volume 10.3 fL (9.1-12.4); Platelet Count 51 K/mm3 (150-400); RDW Coefficient Variation 13.6 % (11.7-14.2); RDW Standard Deviation 45.3 fL (35.1-46.3); Red Blood Cell Count 2.02 M/mm3 (4.30-5.90)
[2019-11-13 04:57] LABS: Mean Corpuscular Volume 94 fL (80-100)
[2019-11-13 04:58] LABS: White Blood Cell Count 0.08 K/mm3 (4.00-11.30)
[2019-11-13 05:11] LABS: Alanine Aminotransfer (ALT/SGP 30 U/L (12-78); Albumin, Blood 2.2 g/dL (3.4-5.0); Albumin/Globulin Ratio 0.6 (0.8-1.8); Alk Phos 83 U/L (50-136); Anion Gap 6 mmol/L (6-16); Aspartate Aminotrans (AST/SGOT 18 U/L (12-37); Bilirubin, Total 2.1 mg/dL (0.1-1.0); Blood Urea Nitrogen 14 mg/dL (8-24); Bun/Creatinine Ratio 17.2 (12.0-20.0); CO2, Blood 25 mmol/L (21-32); Calcium, Blood 7.9 mg/dL (8.5-10.1); Chloride, Blood 108 mmol/L (98-108); Creatinine, Blood 0.81 mg/dL (0.60-1.20); Globulin, Blood 3.8 g/dL (2.2-4.0); Glomerular Filtration Rate >60 (60-); Glucose, Blood 159 mg/dL (70-99); Potassium, Blood 3.8 mmol/L (3.5-5.5); Sodium, Blood 139 mmol/L (136-145)
--- NOTE | 2019-11-13 05:13 | NUR ---
ALERTED OF CRITICAL WBC'S NOW DOWN TO 0.08 FROM O.13 AFTER RECIEVING IV ABX THIS SHIFT. HE WAS ALSO INFORMED OF WORSENING HGB/HCT AND RBC'S DESPITE RECIEVING 1 UNIT IRRADIATED RBC'S. PLATELETS HAVE IMPROVED FROM 8 TO 51 AFTER 2 UNITS PLATELETS RECIEVED TONIGHT. INSTRUCTED THAT STAFF CONTINUE W/NEUTROPENIC PRECAUTIONS AND ANTIBIOTIC/ANTIVIRAL/ANTIFUNGAL MEDICATION REGIMEN RX'D. NO NEW ORDERS WERE RECIEVED AND HE WOULD LIKE THE DAY HOSPITALIST/ONCOLOGIST RE-EVALUATE TX THIS MORNING. WCTM CLOSELY.
[2019-11-13 05:20] LABS: BASOPHILS PERCENT MAN 0 % (0-2); EOSINOPHILS PERCENT MAN 4 % (0-6); LYMPHOCYTES ABSOLUTE MAN 0.07 K/mm3 (0.84-5.20); LYMPHOCYTES PERCENT MAN 96 % (21-46); MONOCYTES PERCENT MAN 0 % (4-13); TOTAL CELLS COUNTED 25
[2019-11-13 05:25] LABS: SEG NEUTROPHILS PERCENT MAN 0 % (41-73)
--- NOTE | 2019-11-13 05:27 | NUR ---
VITALS SIGNS IMPROVED THIS AM DESPITE WORSENING CBC RESULTS. ORAL TEMP NOW DOWN TO 98.8, HR 98 BPM, RR 18 ON RA W/SPO2 95%, BP STABLE AT 105/69. PT RESTING W/O S/S DISTRESS AT THIS TIME.
--- NOTE | 2019-11-13 06:23 | NUR ---
SUMMARY: A/OX4, SPECIFIES NEEDS AND IS SBA FOR MOBILITY IN ROOM. HE AMBULATES W/FWW AT BASELINE AND IS AWARE TO ALERT STAFF IF HE IS DIZZY AND NEEDS OOB. HE'S SAFELY USED HIS URINAL AT EOB INDEPENDENTLY T/O NOCTE. HE'S REPORTED A NAGGING ARELLANO (04/25) W/OXYCODONE 10MG RECEIVED PRN X2 DOSES. HE INFORMED STAFF THAT DILAUDID IV IS USED TYPICALLY WHEN OXY IS INEFFECTIVE, WILL ENSURE DAY STAFF ARE AWARE. PT RECIEVED VANCOMYCIN AND CEFEPIME FOR NEUTROPENIC FEVER THIS SHIFT BUT WBC'S REMAIN CRITICAL THIS AM, NOW 0.08 AND WERE 0.13. NEUTROPENIC PRECAUTIONS ARE IN PLACE, WAS AWARE W/NO NEW ORDERS. ANTIVIRALS, ANTIFUNGALS AND FURTHER ANTIBIOTICS ARE TO BE RECIEVED THIS AM. HGB, HCT AND RBC'S ALSO DROPPED DESPITE RECIEVED 1 UNIT IRRADIATED RBC'S THIS SHIFT. ALERTED AND HE WANTS DAY MD/ONCOLOGIST TO REEVAULATE TX. TEMP TRENDED UPWARD DURING BLOOD TRANSFUSION W/ACCOMPANYING TACHYPNEA BUT PT HAD NO OTHER S/S TRANSFUSION REACTION. BLANKETS REMOVED AND INSTRUCTED TO CONTINUE INFUSION AND GIVE TYLENOL PRN. TEMP GRADUALLY TRENDED BACK DOWNWARD AFTER MED RECIEVED AND IS NOW 98.8 THIS AM W/BLANKETS IN PLACE. ONCOLOGY CX WAS CALLED TO DR. OCHOA'S ANSWERING SERVICE. PLATELETS IMPROVED AFTER 2 UNITS PLATELETS WERE RECIEVED TONIGHT FROM 8 TO 51. PT TESTED (+) FOR PARAINFLUENZA 1 THIS SHIFT AND MAY HAVE UTI W/CX PENDING. A 2ND IV WAS PLACED D/T MULTIPLE TRANSFUSIONS AND ABX REQUIRED. NS INFUSES AT 100 ML/HR AND PT TOLERATING PO INTAKE. PT DENIES NAUSEA BUT HAS GENERAL WEAKNESS AND APPEARS PALE, DUSKY AND UNWELL. LS ARE CLEAR ON RA AND PT WORE CPAP AT HS, SPO2 REMAINED WNL. NO ACUTE CHANGES, VSS/AFEBRILE. WCTM AND REPORT TO BRIANNA LITTLE.
--- NOTE | 2019-11-13 13:12 | NUR ---
Permission was given to Maggy SARAH on 11/13/2019 to assist with care on 11/14/2019.
--- NOTE | 2019-11-13 16:00 | NUR ---
SHIFT SUMMARY PT IS A/O X 4 AND MUCH MORE AWAKE THAN HE WAS EARLY THIS MORNING. HE C/O PAIN X 2, MEDS WERE GIVEN ORDERED AND EFFECTIVE. BLOOD IS TRANSFUSING ORDERED WITH NO ADVERSE REACTIONS OBSERVED. PT HAD A FEVER ONE TIME THIS MORNING AND TYLENOL WAS GIVEN ORDERED AND HE HAS BEEN AFEBRILE SINCE. IV FLUIDS AND ABO INFUSED ORDERED WITH NO ISSUES OBSERVED. UA IS STILL PENDING CULTURE. PT USES THE URINAL AT THE BEDSIDE. PT CONTINUES ON NEUTROPENIC PRECAUTIONS PER DR OCHOA. PT HAD NAUSEA X 1 THIS MORNING BEFORE BREAKFAST AND HIS SISTER REPORTED THAT THIS IS NORMAL FOR HIM, ZOFRAN WAS GIVEN ORDERED AND EFFECTIVE. CBGS HAVE BEEN COVERED WITH SLIDING SCALE ORDERED AND PT HAS NO S/S OF HYPER/HYPOGLYCEMIA. PT HAS A DECREASED APPETITE AND SNACKS AND BROTH WERE OFFERED SINCE HE DECLINED LUNCH. PT IS PLEASANT AND COOPERATIVE WITH HIS CARE. HE CALLS FOR HELP WHEN NEEDED AND HAS HIS CALL LIGHT IN REACH.
[2019-11-14 05:03] LABS: Hematocrit 24.6 % (37.0-53.0); Hemoglobin 8.3 g/dL (13.5-17.5); Mean Corpuscular HGB 31.2 pg (26.0-34.0); Mean Corpuscular HGB Conc 33.7 g/dL (31.5-36.5); Mean Corpuscular Volume 93 fL (80-100); Mean Platelet Volume 9.5 fL (9.1-12.4); RDW Coefficient Variation 13.4 % (11.7-14.2); RDW Standard Deviation 44.9 fL (35.1-46.3); Red Blood Cell Count 2.66 M/mm3 (4.30-5.90)
[2019-11-14 05:04] LABS: BASOPHILS PERCENT AUTO 0 % (0-2); EOSINOPHILS ABSOLUTE AUTO 0.01 K/mm3 (0.00-0.68); EOSINOPHILS PERCENT AUTO 6 % (0-6); IMMATURE GRAN PERCENT AUTO 0 % (0-1); LYMPHOCYTES ABSOLUTE AUTO 0.08 K/mm3 (0.84-5.20); LYMPHOCYTES PERCENT AUTO 50 % (21-46); MONOCYTES ABSOLUTE AUTO 0.05 K/mm3 (0.16-1.47); MONOCYTES PERCENT AUTO 31 % (4-13); NEUTROPHILS ABSOLUTE AUTO 0.02 K/mm3 (1.96-9.15); NEUTROPHILS PERCENT AUTO 12 % (41-73)
[2019-11-14 05:05] LABS: White Blood Cell Count 0.16 K/mm3 (4.00-11.30)
[2019-11-14 05:06] LABS: Platelet Count 31 K/mm3 (150-400)
--- NOTE | 2019-11-14 05:12 | NUR ---
SHIFT SUMMARY PT HAS RESTED OFF AND ON THIS SHIFT. PT SPIKED A 103 TEMP THAT WAS TREATED WITH ICE PACKS, AND TYLENOL. PT HAS SPIKED A LOW GRADE TEMP THIS AM OF 99.5. PT TEMP MONITORED T/O THE SHIFT AND HAS OVERALL TRENDED DOWN. PT COMPLAINS OF HEADACHE MOST OF THE NIGHT. HE STATES ROXICODONE AND TYLENOL DOES NOT WORK FOR PAIN. PT HAS FOUND RELIEF WITH 0.5 MG OF DILAUDID. PT SBA WITH WALKER TO USE URINAL. LUNGS CLEAR UPON AUSCULTATION. DRY, NON PRODUCTIVE COUGH. RA. IV ABX AND FLUIDS PER ORDERS. HBG AND HCT, WBC TRENDING UP WITH AM LAB CHECK. PLT HAVE DECREASED FROM PRIOR LAB CHECK. NO S/S OF BLEEDING. NO OTHER CHANGES TO REPORT. BED IN LOWEST POSITION, CALL LIGHT WITHIN REACH. WILL CONTINUE TO MONITOR AND REPORT TO ONCOMING RN.
[2019-11-14 05:20] LABS: Alanine Aminotransfer (ALT/SGP 41 U/L (12-78); Albumin, Blood 2.2 g/dL (3.4-5.0); Albumin/Globulin Ratio 0.5 (0.8-1.8); Alk Phos 89 U/L (50-136); Anion Gap 7 mmol/L (6-16); Aspartate Aminotrans (AST/SGOT 36 U/L (12-37); Bilirubin, Total 1.1 mg/dL (0.1-1.0); Blood Urea Nitrogen 11 mg/dL (8-24); Bun/Creatinine Ratio 15.1 (12.0-20.0); CO2, Blood 25 mmol/L (21-32); Calcium, Blood 8.1 mg/dL (8.5-10.1); Chloride, Blood 109 mmol/L (98-108); Creatinine, Blood 0.73 mg/dL (0.60-1.20); Globulin, Blood 4.1 g/dL (2.2-4.0); Glomerular Filtration Rate >60 (60-); Glucose, Blood 139 mg/dL (70-99); Potassium, Blood 4.2 mmol/L (3.5-5.5); Sodium, Blood 141 mmol/L (136-145); Total Protein, Blood 6.3 g/dL (6.4-8.2)
[2019-11-14 08:35] LABS: Vancomycin, Trough 13.8 ug/mL (5.0-10.0)
--- NOTE | 2019-11-14 16:36 | NUR ---
SHIFT SUMMARY THE PATIENT HAS BEEN RUNNING A FEVER OFF AND ON THROUGH OUT THE SHIFT; I HAD TO GET AN ORDER FROM DR BYRNES FOR IBUPROFEN TO MANAGE ANOTHER FEVER WHEN THE PATIENT WAS NOT DUE YET FOR ANOTHER DOSE OF APAP. MEDICATION GIVEN. PATIENT NOTED TO SHIVER WITH THE FEVERS. PATIENT CONTINUES TO HAVE HEAD PAIN AND IS MEDICATED PER EMAR WITH EFFECTIVENESS. IV ABX CONTINUE WITHOUT S/SX OF ADVERSE REACTIONS NOTED OR REPORTED. PATIENT REMAINS ON NEUTROPENIC PRECAUTIONS. VITALS HAVE BEEN UP AND DOWN, BUT PATIENT MANAGING WELL CAN BE EXPECTED. GERMÁN NOTED TO BE SLIGHTLY LARGER THAN RACHAEL; DOPPLER JUST COMPLETED AND SVT NOTED TO GERMÁN. LEAVE COORDINATOR TO NOTIFY DR BYRNES. WILL CONTINUE TO MONITOR AND PROVIDE CARE NEEDED. FAMILY REMAINS AT BEDSIDE.
--- NOTE | 2019-11-14 20:03 | NUR ---
PT AND FAMILY VOICED THEY WOULD LIKE ROOM WITH A BENCH FOR FAMILY MEMBER SLEEP ON IF POSSIBLE; PT WAS THEN MOVED VIA BED WITH ALL PERSONAL BELONGINGS TO ROOM 360. PTS SISTER MARTY AT SIDE AND VERY SUPPORTIVE. REPORT GIVEN TO CRISTIANO NOVAK RN AND ALIYAH CEDILLO RN, CHARGE NURSE ADVISED OF MOVE (CHARGE NURSE ASSISTED WITH FACILITING THIS ROOM CHANGE).
--- NOTE | 2019-11-15 03:36 | NUR ---
NOC SHIFT SUMMARY PT HAS BEEN PLEASANT AND COOPERATIVE WITH CARE. HIS SISTER, MARTY, IS IN THE ROOM AND LIKES TO BE KEPT INFORMED OF CARE. VSS. NO FEVERS THUS FAR THIS SHIFT. LAST TEMP TAKEN AT 0331 OF 97.6. HE DID HAVE ONE EPISODE OF COUGHING WHICH LASTED A FEW MINUTES ON AND OFF. PT WAS GIVEN TESSALON PEARLS AND COUGHING HAS NOT RESUMED. RESP ARE EVEN AND UNLABORED AND PT IS SATTING HIGH 90'S ON CONT PULSE OX. NO OTHER STATUS CHANES NOTED THUS FAR THIS SHIFT. AAOX4. APPEARS IN NO ACUTE DISTRESS. WILL CONTINUE TO MONITOR.
[2019-11-15 05:28] LABS: Mean Corpuscular HGB 30.9 pg (26.0-34.0); Mean Corpuscular HGB Conc 33.3 g/dL (31.5-36.5); Mean Corpuscular Volume 93 fL (80-100); Mean Platelet Volume 11.2 fL (9.1-12.4); RDW Coefficient Variation 13.5 % (11.7-14.2); RDW Standard Deviation 44.8 fL (35.1-46.3); Red Blood Cell Count 2.59 M/mm3 (4.30-5.90)
[2019-11-15 05:34] LABS: BASOPHILS PERCENT AUTO 0 % (0-2); EOSINOPHILS PERCENT AUTO 0 % (0-6); IMMATURE GRAN PERCENT AUTO 0 % (0-1); LYMPHOCYTES ABSOLUTE AUTO 0.09 K/mm3 (0.84-5.20); LYMPHOCYTES PERCENT AUTO 53 % (21-46); MONOCYTES ABSOLUTE AUTO 0.05 K/mm3 (0.16-1.47); MONOCYTES PERCENT AUTO 29 % (4-13); NEUTROPHILS ABSOLUTE AUTO 0.03 K/mm3 (1.96-9.15); NEUTROPHILS PERCENT AUTO 18 % (41-73)
[2019-11-15 05:38] LABS: Platelet Count 17 K/mm3 (150-400); White Blood Cell Count 0.17 K/mm3 (4.00-11.30)
[2019-11-15 06:04] LABS: Alanine Aminotransfer (ALT/SGP 70 U/L (12-78); Albumin/Globulin Ratio 0.5 (0.8-1.8); Alk Phos 94 U/L (50-136); Anion Gap 4 mmol/L (6-16); Aspartate Aminotrans (AST/SGOT 48 U/L (12-37); Bilirubin, Total 0.7 mg/dL (0.1-1.0); Blood Urea Nitrogen 10 mg/dL (8-24); Bun/Creatinine Ratio 14.6 (12.0-20.0); CO2, Blood 28 mmol/L (21-32); Calcium, Blood 8.5 mg/dL (8.5-10.1); Chloride, Blood 110 mmol/L (98-108); Creatinine, Blood 0.69 mg/dL (0.60-1.20); Glomerular Filtration Rate >60 (60-); Glucose, Blood 139 mg/dL (70-99); Sodium, Blood 142 mmol/L (136-145)
--- NOTE | 2019-11-15 07:33 | NUR ---
PT DID DEVELOP LOW GRADE FEVER NEAR SHIFT CHANGE, TREATED WITH MOTRIN. CRITICAL VALUES WBC 0.17, PLATELETS 17 CALLED TO HOSPITALIST. NO ORDERES RECIEVED.
--- NOTE | 2019-11-15 07:40 | NUR ---
PT WITH ELEVATED TEMP, 102.7 AND HEART RATE OF 117. WAYNE OF 5. PT MEDICATED WITH 650 MG PO TYLENOL PER EMAR. NO RESP DISTRESS NOTED, PT AWAKE AND TALKING, WILL MONITOR
--- NOTE | 2019-11-15 08:22 | NUR ---
T/C RECEIVED FROM PAVITHRA IN [place], CT OF CHEST PREFERRED TEST TO R/O PE FOR THIS PT. T/C TO DR BYRNES, ORDERS RECEIVED FOR CT OF CHEST.
--- NOTE | 2019-11-15 08:36 | NUR ---
PT TEMP DECREASED TO 99.8 AND HR IN THE 90'S AND PT IS NOT FEELING FEVERISH AT THIS TIME. WILL CONTINUE TO MONITOR
--- NOTE | 2019-11-15 14:30 | NUR ---
TEMP CHECK PT TEMP NOW 98.8. WILL CONTINUE TO MONITOR
--- NOTE | 2019-11-15 14:54 | NUR ---
echocardiogram complete
--- NOTE | 2019-11-15 16:06 | NUR ---
Spiritual care visit conducted. Patient is lying in bed and asleep. Patient's family is in present in the room. They tell me of the medical issues and the struggles they are having as they watch him suffer. They are tearful as we talk but are easily brought to a positive place. The anglican traditions are where the family leans for encouragement. I listen empathically, normalize their experience, recite inspirational Bible verses and provide pastoral parliamentary counsel and prayer. Patient's family voices appreciation for the visit and the prayer and state that it is meaningful to them. I will continue to remain available to patient and family.
--- NOTE | 2019-11-15 18:34 | NUR ---
PT HAS HAD A BUSY DAY, TO IMAGING FOR A CT OF THE CHEST, SEE CHART FOR RESULTS, ECHO PERFORMED IN THE ROOM AND RECEIVED ONE UNIT PLATLETS. MEDICATED FOR PAIN WITH IV DILAUDID X2. PT WITH ELEVATED TEMP THIS AM OF 102.7 WHICH RESPONDED TO PO TYLENOL, TEMP THIS AFTERNOON WAS 98.7. NO ACUTE CHANGES NOTED THIS SHIFT, WILL CONTINUE TO MONITOR AND REPORT TO ONCOMING RN
[2019-11-16 05:38] LABS: Hematocrit 22.6 % (37.0-53.0); Hemoglobin 7.6 g/dL (13.5-17.5); Mean Corpuscular HGB 31.4 pg (26.0-34.0); Mean Corpuscular HGB Conc 33.6 g/dL (31.5-36.5); Mean Corpuscular Volume 93 fL (80-100); RDW Coefficient Variation 13.6 % (11.7-14.2); RDW Standard Deviation 46.2 fL (35.1-46.3); Red Blood Cell Count 2.42 M/mm3 (4.30-5.90)
[2019-11-16 05:46] LABS: BASOPHILS PERCENT AUTO 0 % (0-2); EOSINOPHILS ABSOLUTE AUTO 0.03 K/mm3 (0.00-0.68); EOSINOPHILS PERCENT AUTO 8 % (0-6); IMMATURE GRAN ABSOLUTE AUTO 0.02 K/mm3 (0.00-0.10); IMMATURE GRAN PERCENT AUTO 5 % (0-1); LYMPHOCYTES PERCENT AUTO 27 % (21-46); MONOCYTES ABSOLUTE AUTO 0.12 K/mm3 (0.16-1.47); MONOCYTES PERCENT AUTO 32 % (4-13); NEUTROPHILS PERCENT AUTO 27 % (41-73)
[2019-11-16 05:47] LABS: White Blood Cell Count 0.37 K/mm3 (4.00-11.30)
[2019-11-16 05:48] LABS: Platelet Count 37 K/mm3 (150-400)
[2019-11-16 06:02] LABS: Alanine Aminotransfer (ALT/SGP 94 U/L (12-78); Albumin/Globulin Ratio 0.5 (0.8-1.8); Alk Phos 108 U/L (50-136); Anion Gap 4 mmol/L (6-16); Aspartate Aminotrans (AST/SGOT 79 U/L (12-37); Bilirubin, Total 0.4 mg/dL (0.1-1.0); Blood Urea Nitrogen 9 mg/dL (8-24); CO2, Blood 26 mmol/L (21-32); Calcium, Blood 8.2 mg/dL (8.5-10.1); Chloride, Blood 109 mmol/L (98-108); Creatinine, Blood 0.69 mg/dL (0.60-1.20); Globulin, Blood 3.8 g/dL (2.2-4.0); Glomerular Filtration Rate >60 (60-); Glucose, Blood 142 mg/dL (70-99); Potassium, Blood 3.7 mmol/L (3.5-5.5); Sodium, Blood 139 mmol/L (136-145); Total Protein, Blood 5.8 g/dL (6.4-8.2)
--- NOTE | 2019-11-16 06:33 | NUR ---
NOC SHIFT SUMMARY PT IS PLEASANT AND COOPERATIVE WITH CARE. AAOX4 RESP HAVE BEEN EVEN ON 2LNC TREATED FOR FEVER THIS NIGHT WELL PAIN MULTIPLE TIMES. HE DOES DESAT DOWN THE MID 80'S WHEN OFF HIS O2. TOOK A SHOWER THIS EVENING AND WENT TO SLEEP SHORTLY AFTER (AROUND 2300). RECEIVED CRITICAL VALUE FROM LAB. WBC 0.37, PLT 37. THESE VALUES REPRESENT AN IMPROVEMENT. CONSULTED [facility] S[facility]IOR [facility]AX SPECIALIST, NO CALL TO HOSPITALIST DUE TO IMPROVEMENT. NO ACUTE CHANGES NOTED THIS NIGHT. WILL CONTINUE TO MONITOR.
--- NOTE | 2019-11-16 19:35 | NUR ---
SHIFT SUMMARY: NO ACUTE CHANGES TO REPORT THIS SHIFT. PT A&O; CALM AND COOPERATIVE WITH CARE. CANCER PATIENT; MEDICATED FOR CHRONIC HEADACHE PER EMAR; 1UNIT PLATELETS THIS SHIFT; NEUTROPENIC PRECAUTIONS. MEDICATED FOR FEVER PER EMAR. REPROT GIVEN TO ONCOMING RN.
[2019-11-17 05:12] LABS: Hematocrit 23.5 % (37.0-53.0); Hemoglobin 7.8 g/dL (13.5-17.5); Mean Corpuscular HGB 30.6 pg (26.0-34.0); Mean Corpuscular HGB Conc 33.2 g/dL (31.5-36.5); Mean Corpuscular Volume 92 fL (80-100); Mean Platelet Volume 10.9 fL (9.1-12.4); Platelet Count 64 K/mm3 (150-400); RDW Coefficient Variation 13.7 % (11.7-14.2); RDW Standard Deviation 45.6 fL (35.1-46.3); Red Blood Cell Count 2.55 M/mm3 (4.30-5.90); White Blood Cell Count 1.75 K/mm3 (4.00-11.30)
[2019-11-17 05:58] LABS: Alanine Aminotransfer (ALT/SGP 138 U/L (12-78); Albumin, Blood 1.8 g/dL (3.4-5.0); Albumin/Globulin Ratio 0.5 (0.8-1.8); Alk Phos 145 U/L (50-136); Anion Gap 7 mmol/L (6-16); Aspartate Aminotrans (AST/SGOT 127 U/L (12-37); Bilirubin, Total 0.4 mg/dL (0.1-1.0); Blood Urea Nitrogen 10 mg/dL (8-24); Bun/Creatinine Ratio 15.5 (12.0-20.0); CO2, Blood 25 mmol/L (21-32); Calcium, Blood 8.2 mg/dL (8.5-10.1); Chloride, Blood 108 mmol/L (98-108); Creatinine, Blood 0.65 mg/dL (0.60-1.20); Globulin, Blood 3.9 g/dL (2.2-4.0); Glomerular Filtration Rate >60 (60-); Glucose, Blood 143 mg/dL (70-99); Potassium, Blood 3.7 mmol/L (3.5-5.5); Sodium, Blood 140 mmol/L (136-145); Total Protein, Blood 5.7 g/dL (6.4-8.2)
[2019-11-17 06:19] LABS: BAND PERCENT MAN 21 % (0-8); BASOPHILS PERCENT MAN 0 % (0-2); BLASTS PERCENT MAN 3 % (0-0); EOSINOPHILS ABSOLUTE MAN 0.01 K/mm3 (0.00-0.68); EOSINOPHILS PERCENT MAN 1 % (0-6); LYMPHOCYTES ABSOLUTE MAN 0.26 K/mm3 (0.84-5.20); LYMPHOCYTES PERCENT MAN 15 % (21-46); METAMYELOCYTE ABSOLUTE MAN 0.08 K/mm3 (0.00-0.00); METAMYELOCYTE PERCENT MAN 5 % (0-0); MONOCYTES ABSOLUTE MAN 0.36 K/mm3 (0.16-1.47); MONOCYTES PERCENT MAN 21 % (4-13); MYELOCYTE ABSOLUTE MAN 0.14 K/mm3 (0.00-0.00); MYELOCYTE PERCENT MAN 8 % (0-0); PROMYELOCYTE ABSOLUTE MAN 0.01 K/mm3 (0.00-0.00); PROMYELOCYTE PERCENT MAN 1 % (0-0); SEG NEUTROPHILS PERCENT MAN 25 % (41-73); TOTAL CELLS COUNTED 100
--- NOTE | 2019-11-17 07:59 | NUR ---
SHIFT SUMMARY: PATIENT IS A&OX3, REPORTING HEADACHE PAIN 05/26, IV DILAUDID, TYLENOL, IBUPROPHEN AND OXYCODONE ARE EFFECTIVE FOR PAIN CONTROL. PATIENT IS ABLE TO STAND AT BEDSIDE TO VOID IN URINAL. NO BM SINCE11/10/19, MOM WAS GIVEBN, AWAITING RESULT. PATIENT IS ON NEUTROPENIC PRECAUTIONS, WBC COUNT HAS IMPROVED AND IS 1.75 TODAY, UP FROM 0.37 YESTERDAY. COMPLIANT WITH CPAP AND REQUIRED A 4L BLEED IN TO MAINTAIN SATS 88-90%.
--- NOTE | 2019-11-17 18:31 | NUR ---
SHIFT SUMMARY PT HAS BEEN MEDICATED X2 FOR FEVER AND X2 FOR MEDICATION, IV PAINS MEDS D/C TRANSITIONING TO ORAL PAIN MEDS FOR ANTICIPATION OF DISCHARGE HOME. PT TOLORAATED MEALS. PT ON 2LNC. PT HAS CALL LIGHT WITH IN REACH WILL COUNTINUE TO MONITOR.
--- NOTE | 2019-11-18 00:03 | NUR ---
BEGINNING SHIFT SUMMARY ASSUMED CARE OF PT AT 1900. PT IS A/O X4, STATES HE HAS NEUROPATHY IN LEGS. SISTER IN ROOM. HEART SOUNDS REGULAR, FINE CRACKLES IN THE BASES OF LUNGS, ON 2L O2, NORMALLY ON RA, DENIES SOB/CP AT THIS TIME. PT FEVER BROKE, CURRENT TEMP WAS 97.9. PT IS CURRENTLY SLEEPING. CALL LIGHT IN REACH, BED IN LOWEST POSTION, WILL CONTINUE TO MONITOR.
--- NOTE | 2019-11-18 04:44 | NUR ---
END SHIFT SUMMARY NO ACUTE CHANGES NOTED T/O THE NIGHT. PT USED NASAL CANNILA MOST THE NIGHT AND THEN MOVED TO CPAP AROUND 0300. PT TEMP CHECKED AT 0440 AND IT WAS 100.2, BLANKETS PULLED OFF AND THERMOSTAT TURNED OFF. NO COMPLANTS FROM PT ALL NIGHT. CALL LIGHT IN REACH, BED IN LOWEST POSTION, WILL CONTINUE TO MONITOR UNTIL DAYSHIFT NURSE ARRIVES.
[2019-11-18 06:13] LABS: Hemoglobin 7.9 g/dL (13.5-17.5); Mean Corpuscular HGB 31.5 pg (26.0-34.0); Mean Corpuscular HGB Conc 34.3 g/dL (31.5-36.5); Mean Corpuscular Volume 92 fL (80-100); Mean Platelet Volume 9.7 fL (9.1-12.4); Platelet Count 102 K/mm3 (150-400); RDW Standard Deviation 46.4 fL (35.1-46.3); Red Blood Cell Count 2.51 M/mm3 (4.30-5.90); White Blood Cell Count 5.36 K/mm3 (4.00-11.30)
[2019-11-18 06:30] LABS: Alanine Aminotransfer (ALT/SGP 106 U/L (12-78); Albumin, Blood 1.9 g/dL (3.4-5.0); Albumin/Globulin Ratio 0.5 (0.8-1.8); Alk Phos 142 U/L (50-136); Anion Gap 6 mmol/L (6-16); Aspartate Aminotrans (AST/SGOT 65 U/L (12-37); Bilirubin, Total 0.4 mg/dL (0.1-1.0); Blood Urea Nitrogen 7 mg/dL (8-24); Bun/Creatinine Ratio 9.9 (12.0-20.0); CO2, Blood 28 mmol/L (21-32); Calcium, Blood 8.5 mg/dL (8.5-10.1); Chloride, Blood 107 mmol/L (98-108); Creatinine, Blood 0.71 mg/dL (0.60-1.20); Globulin, Blood 3.9 g/dL (2.2-4.0); Glomerular Filtration Rate >60 (60-); Glucose, Blood 114 mg/dL (70-99); Potassium, Blood 3.5 mmol/L (3.5-5.5); Sodium, Blood 141 mmol/L (136-145); Total Protein, Blood 5.8 g/dL (6.4-8.2)
[2019-11-18 07:06] LABS: BAND PERCENT MAN 7 % (0-8); BASOPHILS PERCENT MAN 0 % (0-2); BLASTS PERCENT MAN 2 % (0-0); EOSINOPHILS PERCENT MAN 2 % (0-6); LYMPHOCYTES % ATYPICAL MANUAL 1 % (0-0); LYMPHOCYTES ABSOLUTE MAN 1.01 K/mm3 (0.84-5.20); LYMPHOCYTES PERCENT MAN 18 % (21-46); METAMYELOCYTE ABSOLUTE MAN 0.21 K/mm3 (0.00-0.00); METAMYELOCYTE PERCENT MAN 4 % (0-0); MONOCYTES ABSOLUTE MAN 0.32 K/mm3 (0.16-1.47); MONOCYTES PERCENT MAN 6 % (4-13); MYELOCYTE ABSOLUTE MAN 0.26 K/mm3 (0.00-0.00); MYELOCYTE PERCENT MAN 5 % (0-0); NEUTROPHILS ABSOLUTE MAN 3.32 K/mm3 (1.96-9.15); SEG NEUTROPHILS PERCENT MAN 55 % (41-73); TOTAL CELLS COUNTED 100
--- NOTE | 2019-11-18 16:20 | NUR ---
SHIFT SUMMARY PT HAS BEEN AFEBRILE THIS SHIFT, PT HAS COMPLIANTED OF HEADACHE THIS SHIFT AND HAS DECLINED ANY NON-PHARMALOGIACAL INTERVENTIONS, PT MEDIATED X3 FOR PAIN. PT HAS DECLINED HOSPITAL MEALS, BUT HAS EATEN OUTSIDE FOOD BROUGHT IN. PT WAS MEDICATED X1 FOR NAUSEA AND EMESIS. PT HAS BEEN UP IN CHAIR THE MAJORITY OF THE SHIFT. PT HAS FAMILY AT BEDSIDE. WILL COUNTINUE TO MONITOR AND REPORT TO NOC RN. CALL LIGHT WITHIN REACH.
--- NOTE | 2019-11-18 23:49 | NUR ---
BEGINNING SHIFT SUMMARY ASSUMED CARE OF PT AT 1900. PT IS A/O X4 AND IS WATCHING THE FOOTBALL GAME WITH FAMILY. HEART SOUNDS REGULAR, LUNG SOUNDS CLEAR BUT DIMINISHED, PT ON 2L NCM, DENIES CP/SOB AT THIS TIME, PT USES SPAP AT NIGHT. FAMILY IS STAYING THE NIGHY, CALL LIGHT IN REACH, BED IN LOWEST POSTION, WILL CONTINUE TO MONITOR.
--- NOTE | 2019-11-19 04:32 | NUR ---
END SHIFT SUMMARY NO ACUTE CHANGES NOTED T/O THE NIGHT. PT SLEPT MOST OF THE NIGHT. FAMILY PRESENT IN ROOM. PT USED THE URINAL AT BEDSIDE. PT WAS WITHOUT FEVER ALL LIGHT. CALL LIGHT IN REACH, BED IN LOWEST POSTION, WILL CONTINUE TO MONITOR UNTIL DAYSHIFT NURSE ARRIVES.
--- NOTE | 2019-11-19 14:02 | NUR ---
[facility] care visit conducted. Patient is sitting on achair and alert Patient's family is present. Patient tells me about improved numbers and the disappointing news of a transfer up to [facility]. Patient also tells me that because of his current condition that he will not be able to attend his son's graduation from [employer]. Patient is working through these internal struggles but is open to talking about what lights him up, what is good and what is working. Patient is clearly struggling with his amirah and is in spiritual distress. He only allows glimpses of this but then moves back to his [employer] exterior and talks about how he can handle it all. I listen empathically, reinforce helpful attitudes and practices, encourage self-care and provide spiritual guidance and prayer. Patient responds well and shows small steps toward renewed amirah. I will continue to remain available to patient and family.
--- NOTE | 2019-11-19 18:19 | NUR ---
PATIENT IS ALERT AND ORIENTED AND COOPERATIVE WITH CARE. FAMILY HAS BEEN AT THE BEDSIDE ALL DAY. PATIENT COMPLAINS OF PAIN IN HIS HEAD, TREATED PER EMAR. PATIENT IS ON 2L O2 VIA NC AT REST. HE HAS BEEN UP IN THE RECLINER MOST OF THE DAY. DR. EATON WAS CONSULTED AND SHE VISITED THE PATIENT AND HIS ANABEL AND DISCUSSED A BRONCHOSCOPY. DR. JAMES DC'D THE PATIENT'S XARELTO TONIGHT IN PREPARATION FOR THE BRONCHOSCOPY. WILL CONTINUE TO MONITOR.
--- NOTE | 2019-11-20 05:55 | NUR ---
SHIFT SUMMARY AOX4. DENIES N/V, DYSPNEA. ON 2L O2 WHILE AWAKE & WORE CPAP T/O NIGHT. RT INCREASED O2 TO 8L BLEED IN W/CPAP SINCE PT DESAT TO LOW 80'S WHILE ASLEEP, BUT WOULD BE 90-94% WHILE AWAKE. REPORTS PAIN IN HEAD, MEDICATED 1X W/10MG OXYCODONE PER ORDERS. HAS BEEN @BEDSIDE T/O NIGHT. CALL LIGHT IN REACH. WCTM.
[2019-11-20 08:27] LABS: Hematocrit 23.5 % (37.0-53.0); Hemoglobin 7.8 g/dL (13.5-17.5); LYMPHOCYTES ABSOLUTE AUTO 0.54 K/mm3 (0.84-5.20); LYMPHOCYTES PERCENT AUTO 4 % (21-46); MONOCYTES ABSOLUTE AUTO 2.32 K/mm3 (0.16-1.47); MONOCYTES PERCENT AUTO 18 % (4-13); Mean Corpuscular HGB 30.7 pg (26.0-34.0); Mean Corpuscular HGB Conc 33.2 g/dL (31.5-36.5); Mean Corpuscular Volume 93 fL (80-100); Mean Platelet Volume 10.3 fL (9.1-12.4); NRBC ABSOLUTE 0.03 K/mm3 (0.00-0.02); NRBC Auto 0.2 /100 WBC (0.0-0.2); Platelet Count 123 K/mm3 (150-400); RDW Coefficient Variation 14.5 % (11.7-14.2); RDW Standard Deviation 48.3 fL (35.1-46.3); Red Blood Cell Count 2.54 M/mm3 (4.30-5.90); White Blood Cell Count 12.58 K/mm3 (4.00-11.30)
[2019-11-20 08:30] LABS: BASOPHILS ABSOLUTE AUTO 0.02 K/mm3 (0.00-0.23); BASOPHILS PERCENT AUTO 0 % (0-2); EOSINOPHILS ABSOLUTE AUTO 0.01 K/mm3 (0.00-0.68); EOSINOPHILS PERCENT AUTO 0 % (0-6); IMMATURE GRAN ABSOLUTE AUTO 3.26 K/mm3 (0.00-0.10); IMMATURE GRAN PERCENT AUTO 26 % (0-1); NEUTROPHILS ABSOLUTE AUTO 6.43 K/mm3 (1.96-9.15); NEUTROPHILS PERCENT AUTO 51 % (41-73)
[2019-11-20 08:47] LABS: Alanine Aminotransfer (ALT/SGP 114 U/L (12-78); Albumin, Blood 1.9 g/dL (3.4-5.0); Albumin/Globulin Ratio 0.5 (0.8-1.8); Alk Phos 147 U/L (50-136); Anion Gap 7 mmol/L (6-16); Aspartate Aminotrans (AST/SGOT 83 U/L (12-37); Bilirubin, Total 0.3 mg/dL (0.1-1.0); Blood Urea Nitrogen 7 mg/dL (8-24); Bun/Creatinine Ratio 10.5 (12.0-20.0); CO2, Blood 29 mmol/L (21-32); Calcium, Blood 8.2 mg/dL (8.5-10.1); Chloride, Blood 102 mmol/L (98-108); Creatinine, Blood 0.67 mg/dL (0.60-1.20); Globulin, Blood 3.7 g/dL (2.2-4.0); Glomerular Filtration Rate >60 (60-); Glucose, Blood 144 mg/dL (70-99); Potassium, Blood 3.6 mmol/L (3.5-5.5); Sodium, Blood 138 mmol/L (136-145); Total Protein, Blood 5.6 g/dL (6.4-8.2)
[2019-11-20 08:52] LABS: BAND PERCENT MAN 7 % (0-8); BASOPHILS PERCENT MAN 0 % (0-2); BLASTS PERCENT MAN 2 % (0-0); EOSINOPHILS ABSOLUTE MAN 0.12 K/mm3 (0.00-0.68); EOSINOPHILS PERCENT MAN 1 % (0-6); LYMPHOCYTES PERCENT MAN 8 % (21-46); METAMYELOCYTE PERCENT MAN 4 % (0-0); MONOCYTES ABSOLUTE MAN 2.51 K/mm3 (0.16-1.47); MONOCYTES PERCENT MAN 20 % (4-13); MYELOCYTE ABSOLUTE MAN 0.75 K/mm3 (0.00-0.00); MYELOCYTE PERCENT MAN 6 % (0-0); NEUTROPHILS ABSOLUTE MAN 7.29 K/mm3 (1.96-9.15); PROMYELOCYTE ABSOLUTE MAN 0.12 K/mm3 (0.00-0.00); PROMYELOCYTE PERCENT MAN 1 % (0-0); SEG NEUTROPHILS PERCENT MAN 51 % (41-73); TOTAL CELLS COUNTED 100
--- NOTE | 2019-11-20 13:28 | NUR ---
Permission of care was given at 1328 11/20/2019.
--- NOTE | 2019-11-20 18:07 | NUR ---
PT ALERT AND ORIENTED AND ABLE TO EXPRESS ANY NEEDS. PT REPORTED PAIN AND WAS MEDICATED PER EMAR. NO ACUTE CHANGES. CALL LIGHT WITHIN REACH.
--- NOTE | 2019-11-21 03:11 | NUR ---
SHIFT SUMMARY PATIENT HAD NO ACUTE CHANGES OBSERVED. AXO X4 AND SBA TO BSC. TAKES MEDICATION WHOLE WITH WATER. CBG 199. VSS/AFEBRILE. DENIES PAIN, SOB, AND N/V. ON 2L O2 NC AND 8L O2 WITH CPAP AT NIGHT. COOPERATIVE WITH CARE. PATIENT SLEPT MOST OF THE SHIFT. CALL LIGHT IN REACH. BED IN LOWEST POSITION. WILL CONTINUE TO MONITOR UNTIL DAY SHIFT NURSE ASSUMES CARE.
--- NOTE | 2019-11-21 04:42 | NUR ---
PATIENT REPORTED HEAD PAIN AND OXYCODONE 10 MG GIVEN PER EMAR. WILL CONTINUE TO MONITOR.
[2019-11-21] MEDS ORDERED: CEPACOL SORE T1 EACH MM (13:50)
[2019-11-21] MEDS ORDERED: BENZ100A PO (13:51)
[2019-11-21] MEDS ORDERED: BISA10S PR (13:52)
[2019-11-21] MEDS ORDERED: CARB200 PO (13:53)
[2019-11-21] MEDS ORDERED: TIZA4 PO (13:54)
--- NOTE | 2019-11-21 13:55 | NUR ---
Spiritual care visit conducted. Patient is lying in bed and alert. Patient shares that he is "going home" today and he gets to sleep in his own bed. Patient tells me about the sant[place] home [place] outside of [place] is for him. Patient shows me pictures of the view off his deck above the tree line. We talk about God, sources of strength and hope and the next steps in his treatment. Patient shares personal stories about his life journey. I listen empathically and provide companionship and prayer. Patient responds well and shows signs of improved hope.
--- NOTE | 2019-11-21 15:00 | NUR ---
1410 PT TO DISCHARGE HOME . NURSE WENT OVER DISCHARGE INSTRUCTIONS WITH PATIENT . NEW MEDS WHERE DISCUSSED AND FAXED TO PHARMACY OF CHOICE. NO IV TO REMOVE. PT DISCHARGED ON O2. PT TAKEN OUT BY WC TO CAR TO BE TAKEN HOME BY SISTER. PT TOLD TO FOLLOW UP WITH PCP AND ONCOLOGY.
== END 2019-11-21 14:22 | disposition home or self-care (01) | DRG 808 ==
LOC: ER 14:50 → MEDS 17:58
PROVIDERS: Emergency Medicine; Family Medicine; Internal Medicine; Internal Medicine Hematology & Oncology; Physician Assistant; ADMIT Internal Medicine
PROC: 30233N1 Transfusion of Nonautologous Red Blood Cells into Peripheral Vein, Percutaneous Approach (ICD-10-PCS; principal; 2019-11-16)
DX: D70.9 Neutropenia, unspecified (principal); I26.99 Other pulmonary embolism without acute cor pulmonale; J96.01 Acute respiratory failure with hypoxia; C83.70 Burkitt lymphoma, unspecified site; I82.4Y2 Acute embolism and thrombosis of unspecified deep veins of left proximal lower extremity; E87.1 Hypo-osmolality and hyponatremia; R50.81 Fever presenting with conditions classified elsewhere; D61.810 Antineoplastic chemotherapy induced pancytopenia; D49.9 Neoplasm of unspecified behavior of unspecified site; G47.33 Obstructive sleep apnea (adult) (pediatric); E11.40 Type 2 diabetes mellitus with diabetic neuropathy, unspecified; E11.59 Type 2 diabetes mellitus with other circulatory complications; E11.65 Type 2 diabetes mellitus with hyperglycemia; D52.1 Drug-induced folate deficiency anemia; D63.0 Anemia in neoplastic disease; G47.00 Insomnia, unspecified
CPT/HCPCS: 0099U; 36415; 70470; 71045; 71046; 71260; 74177; 80053; 80202; 81001; 82947; 83605; 83615; 83735; 84100; 84145; 84550; 85025; 85610; 85730; 86850; 86900; 86901; 86923; 87040; 87086; 93005; 93010; 93306; 93971; 94762; 96361; 96365; 97116; 97162; 97530; 99285-25; A9270; A9270-GY; J0692; J1170; J1447; J1650; J1817; J2405; J3370; J7030; J7050; P9035; P9037; P9040; Q9967

== ENCOUNTER 2019-12-10 10:08 | Day surgery (SDC) | payer BC ==
[~2019-12-10 10:08] MED LIST changes: +ACET325; +ACET325 PO; +ACYC800 PO; +ARTIFICIAL TEAR30 ML BOTHEYES; +B-121000 MC3 PO; +BENZ100A PO; +BISA10S PR; +CEPACOL SORE T1 EACH MM; +Diclofenac Sod2.5 ML; +FLUC200 PO; +LEUCOVORIN CALC; +LIPITOR80 MG PO; +NEUPOGEN480 MCG/0. SC; +PROC5 PO; +Zanaflex4 M1 PO; +diclofenac BOTHEYES
[2019-12-10 10:59] LABS: Hematocrit 20.9 % (37.0-53.0); Hemoglobin 7.4 g/dL (13.5-17.5); Mean Corpuscular HGB Conc 35.4 g/dL (31.5-36.5); Mean Corpuscular Volume 91 fL (80-100); Mean Platelet Volume 12.8 fL (9.1-12.4); RDW Coefficient Variation 13.9 % (11.7-14.2); RDW Standard Deviation 45.8 fL (35.1-46.3); Red Blood Cell Count 2.31 M/mm3 (4.30-5.90); White Blood Cell Count 1.79 K/mm3 (4.00-11.30)
[2019-12-10 11:15] LABS: Alanine Aminotransfer (ALT/SGP 23 U/L (12-78); Albumin, Blood 3.2 g/dL (3.4-5.0); Albumin/Globulin Ratio 1.1 (0.8-1.8); Alk Phos 88 U/L (50-136); Anion Gap 13 mmol/L (6-16); Aspartate Aminotrans (AST/SGOT 5 U/L (12-37); Bilirubin, Total 0.4 mg/dL (0.1-1.0); Blood Urea Nitrogen 25 mg/dL (8-24); Bun/Creatinine Ratio 42.4 (12.0-20.0); CO2, Blood 22 mmol/L (21-32); Calcium, Blood 9.1 mg/dL (8.5-10.1); Chloride, Blood 104 mmol/L (98-108); Creatinine, Blood 0.59 mg/dL (0.60-1.20); Glomerular Filtration Rate >60 (60-); Glucose, Blood 318 mg/dL (70-99); Lactate Dehydrogenase (Ld),Bld 164 U/L (100-240); Magnesium, Blood 1.5 mg/dL (1.6-2.4); Phosphorus, Blood 2.9 mg/dL (2.5-4.9); Sodium, Blood 139 mmol/L (136-145); Total Protein, Blood 6.2 g/dL (6.4-8.2); Uric Acid, Blood 4.1 mg/dL (3.5-7.2)
[2019-12-10 11:35] LABS: Platelet Count 29 K/mm3 (150-400)
[2019-12-10 11:41] LABS: BAND PERCENT MAN 2 % (0-8); BASOPHILS PERCENT MAN 0 % (0-2); EOSINOPHILS PERCENT MAN 0 % (0-6); LYMPHOCYTES ABSOLUTE MAN 0.21 K/mm3 (0.84-5.20); LYMPHOCYTES PERCENT MAN 12 % (21-46); METAMYELOCYTE ABSOLUTE MAN 0.03 K/mm3 (0.00-0.00); METAMYELOCYTE PERCENT MAN 2 % (0-0); MONOCYTES ABSOLUTE MAN 0.39 K/mm3 (0.16-1.47); MONOCYTES PERCENT MAN 22 % (4-13); MYELOCYTE ABSOLUTE MAN 0.01 K/mm3 (0.00-0.00); MYELOCYTE PERCENT MAN 1 % (0-0); NEUTROPHILS ABSOLUTE MAN 1.12 K/mm3 (1.96-9.15); SEG NEUTROPHILS PERCENT MAN 61 % (41-73); TOTAL CELLS COUNTED 100
[2019-12-11] MEDS ORDERED: XARELTO20 MG PO (17:52)
== END 2019-12-10 10:44 | disposition home or self-care (01) ==
LOC: ATC 10:08
PROVIDERS: Internal Medicine Hematology & Oncology
DX: C83.79 Burkitt lymphoma, extranodal and solid organ sites (principal); E11.9 Type 2 diabetes mellitus without complications; E78.5 Hyperlipidemia, unspecified; Z87.891 Personal history of nicotine dependence; Z79.899 Other long term (current) drug therapy; Z79.4 Long term (current) use of insulin
CPT/HCPCS: 36592; 80053; 83615; 83735; 84100; 84550; 85025

== ENCOUNTER 2019-12-11 13:23 | Day surgery (SDC) | payer BC ==
[2019-12-11] MEDS ORDERED: XARELTO20 MG PO (17:52)
== END 2019-12-11 15:05 | disposition home or self-care (01) ==
LOC: ATC 13:23
DX: C83.79 Burkitt lymphoma, extranodal and solid organ sites (principal); E11.9 Type 2 diabetes mellitus without complications; E78.5 Hyperlipidemia, unspecified; Z87.891 Personal history of nicotine dependence; Z79.899 Other long term (current) drug therapy; Z79.4 Long term (current) use of insulin
CPT/HCPCS: 36430; 86900; 86901; J7050; P9053

== ENCOUNTER 2019-12-14 00:34 | Day surgery (SDC) | payer BC ==
[~2019-12-14 00:34] MED LIST changes: +XARELTO20 MG PO
[2019-12-14 17:50] LABS: Alanine Aminotransfer (ALT/SGP 41 U/L (12-78); Albumin, Blood 2.8 g/dL (3.4-5.0); Alk Phos 84 U/L (50-136); Anion Gap 7 mmol/L (6-16); Aspartate Aminotrans (AST/SGOT 15 U/L (12-37); Bilirubin, Total 0.4 mg/dL (0.1-1.0); Blood Urea Nitrogen 12 mg/dL (8-24); Bun/Creatinine Ratio 18.5 (12.0-20.0); CO2, Blood 27 mmol/L (21-32); Calcium, Blood 8.7 mg/dL (8.5-10.1); Chloride, Blood 100 mmol/L (98-108); Creatinine, Blood 0.65 mg/dL (0.60-1.20); Globulin, Blood 2.8 g/dL (2.2-4.0); Glomerular Filtration Rate >60 (60-); Glucose, Blood 204 mg/dL (70-99); Lactate Dehydrogenase (Ld),Bld 214 U/L (100-240); Magnesium, Blood 1.4 mg/dL (1.6-2.4); Phosphorus, Blood 3.6 mg/dL (2.5-4.9); Potassium, Blood 3.8 mmol/L (3.5-5.5); Sodium, Blood 134 mmol/L (136-145); Total Protein, Blood 5.6 g/dL (6.4-8.2); Uric Acid, Blood 5.1 mg/dL (3.5-7.2)
[2019-12-14 18:18] LABS: Hemoglobin 8.2 g/dL (13.5-17.5); Mean Corpuscular HGB 31.3 pg (26.0-34.0); Mean Corpuscular HGB Conc 34.2 g/dL (31.5-36.5); Mean Corpuscular Volume 92 fL (80-100); Mean Platelet Volume 11.5 fL (9.1-12.4); NRBC ABSOLUTE 0.11 K/mm3 (0.00-0.02); NRBC Auto 1.4 /100 WBC (0.0-0.2); Platelet Count 63 K/mm3 (150-400); RDW Coefficient Variation 14.1 % (11.7-14.2); RDW Standard Deviation 46.3 fL (35.1-46.3); Red Blood Cell Count 2.62 M/mm3 (4.30-5.90); White Blood Cell Count 7.97 K/mm3 (4.00-11.30)
[2019-12-14 19:16] LABS: BAND PERCENT MAN 4 % (0-8); BASOPHILS PERCENT MAN 0 % (0-2); EOSINOPHILS PERCENT MAN 0 % (0-6); LYMPHOCYTES % ATYPICAL MANUAL 4 % (0-0); LYMPHOCYTES ABSOLUTE MAN 2.07 K/mm3 (0.84-5.20); LYMPHOCYTES PERCENT MAN 22 % (21-46); MONOCYTES ABSOLUTE MAN 0.39 K/mm3 (0.16-1.47); MONOCYTES PERCENT MAN 5 % (4-13); MYELOCYTE ABSOLUTE MAN 0.15 K/mm3 (0.00-0.00); MYELOCYTE PERCENT MAN 2 % (0-0); NEUTROPHILS ABSOLUTE MAN 5.33 K/mm3 (1.96-9.15); SEG NEUTROPHILS PERCENT MAN 63 % (41-73); TOTAL CELLS COUNTED 100
== END 2019-12-14 18:15 | disposition home or self-care (01) ==
LOC: ATC 00:34
PROVIDERS: Internal Medicine Hematology & Oncology
DX: C83.79 Burkitt lymphoma, extranodal and solid organ sites (principal); E11.9 Type 2 diabetes mellitus without complications; E78.5 Hyperlipidemia, unspecified; Z87.891 Personal history of nicotine dependence; D63.0 Anemia in neoplastic disease; Z79.899 Other long term (current) drug therapy; Z79.4 Long term (current) use of insulin
CPT/HCPCS: 36592; 80053; 83615; 83735; 84100; 84550; 85025; 96360; J7030

== ENCOUNTER 2019-12-17 12:00 | Day surgery (SDC) | payer BC ==
[2019-12-17 17:24] LABS: BASOPHILS ABSOLUTE AUTO 0.01 K/mm3 (0.00-0.23); BASOPHILS PERCENT AUTO 0 % (0-2); EOSINOPHILS PERCENT AUTO 0 % (0-6); Hemoglobin 7.6 g/dL (13.5-17.5); IMMATURE GRAN ABSOLUTE AUTO 0.04 K/mm3 (0.00-0.10); IMMATURE GRAN PERCENT AUTO 1 % (0-1); LYMPHOCYTES ABSOLUTE AUTO 1.86 K/mm3 (0.84-5.20); LYMPHOCYTES PERCENT AUTO 47 % (21-46); MONOCYTES ABSOLUTE AUTO 0.23 K/mm3 (0.16-1.47); MONOCYTES PERCENT AUTO 6 % (4-13); Mean Corpuscular HGB 32.6 pg (26.0-34.0); Mean Corpuscular HGB Conc 34.5 g/dL (31.5-36.5); Mean Corpuscular Volume 94 fL (80-100); Mean Platelet Volume 11.1 fL (9.1-12.4); NEUTROPHILS ABSOLUTE AUTO 1.85 K/mm3 (1.96-9.15); NEUTROPHILS PERCENT AUTO 46 % (41-73); NRBC ABSOLUTE 0.04 K/mm3 (0.00-0.02); RDW Coefficient Variation 16.3 % (11.7-14.2); RDW Standard Deviation 47.5 fL (35.1-46.3); Red Blood Cell Count 2.33 M/mm3 (4.30-5.90); White Blood Cell Count 3.99 K/mm3 (4.00-11.30)
[2019-12-17 17:25] LABS: Platelet Count 50 K/mm3 (150-400)
[2019-12-17 17:52] LABS: Magnesium, Blood 1.7 mg/dL (1.6-2.4); Uric Acid, Blood 5.9 mg/dL (3.5-7.2)
[2019-12-17 17:53] LABS: Alanine Aminotransfer (ALT/SGP 37 U/L (12-78); Albumin, Blood 3.1 g/dL (3.4-5.0); Albumin/Globulin Ratio 1.1 (0.8-1.8); Alk Phos 90 U/L (50-136); Anion Gap 5 mmol/L (6-16); Aspartate Aminotrans (AST/SGOT 10 U/L (12-37); Bilirubin, Total 0.4 mg/dL (0.1-1.0); Blood Urea Nitrogen 13 mg/dL (8-24); Bun/Creatinine Ratio 18.6 (12.0-20.0); CO2, Blood 28 mmol/L (21-32); Calcium, Blood 9.1 mg/dL (8.5-10.1); Chloride, Blood 106 mmol/L (98-108); Cholesterol 231 mg/dL (50-200); Globulin, Blood 2.9 g/dL (2.2-4.0); Glomerular Filtration Rate >60 (60-); Glucose, Blood 130 mg/dL (70-99); HDL Cholesterol 29 mg/dL (>39); Phosphorus, Blood 4.2 mg/dL (2.5-4.9); Potassium, Blood 3.9 mmol/L (3.5-5.5); Sodium, Blood 139 mmol/L (136-145); Triglycerides 437 mg/dL (30-160); Very Low Density Lipoprot Chol Unable to Calculate mg/dL (6-32)
[2019-12-17 17:57] LABS: LDL/HDL RATIO Unable to Calculate; Low Density Lipoprotein Chol Unable to Calculate mg/dL (0-110)
[2019-12-17 18:09] LABS: LDL Direct Measurement 144 mg/dL (0-130)
== END 2019-12-17 23:59 | disposition home or self-care (01) ==
LOC: ATC 12:00
PROVIDERS: Internal Medicine Hematology & Oncology
DX: C83.79 Burkitt lymphoma, extranodal and solid organ sites (principal); D63.0 Anemia in neoplastic disease; E11.9 Type 2 diabetes mellitus without complications; E78.5 Hyperlipidemia, unspecified; Z87.891 Personal history of nicotine dependence; Z79.899 Other long term (current) drug therapy
CPT/HCPCS: 36592; 80053; 80061; 83721; 83735; 84100; 84550; 85025

== ENCOUNTER 2019-12-24 00:08 | Day surgery (SDC) | payer BC ==
[2019-12-24 11:40] LABS: Hematocrit 23.3 % (37.0-53.0); Hemoglobin 8.2 g/dL (13.5-17.5); Mean Corpuscular HGB 32.3 pg (26.0-34.0); Mean Corpuscular HGB Conc 35.2 g/dL (31.5-36.5); Mean Corpuscular Volume 92 fL (80-100); Mean Platelet Volume 11.3 fL (9.1-12.4); RDW Standard Deviation 50.4 fL (35.1-46.3); Red Blood Cell Count 2.54 M/mm3 (4.30-5.90)
[2019-12-24 11:51] LABS: BASOPHILS PERCENT AUTO 0 % (0-2); EOSINOPHILS PERCENT AUTO 0 % (0-6); IMMATURE GRAN PERCENT AUTO 0 % (0-1); LYMPHOCYTES ABSOLUTE AUTO 0.01 K/mm3 (0.84-5.20); LYMPHOCYTES PERCENT AUTO 6 % (21-46); MONOCYTES ABSOLUTE AUTO 0.01 K/mm3 (0.16-1.47); MONOCYTES PERCENT AUTO 6 % (4-13); NEUTROPHILS ABSOLUTE AUTO 0.15 K/mm3 (1.96-9.15); NEUTROPHILS PERCENT AUTO 88 % (41-73); Platelet Count 29 K/mm3 (150-400); White Blood Cell Count 0.17 K/mm3 (4.00-11.30)
[2019-12-24 11:55] LABS: Alanine Aminotransfer (ALT/SGP 36 U/L (12-78); Albumin, Blood 2.9 g/dL (3.4-5.0); Alk Phos 76 U/L (50-136); Anion Gap 6 mmol/L (6-16); Aspartate Aminotrans (AST/SGOT 11 U/L (12-37); Bilirubin, Total 1.4 mg/dL (0.1-1.0); Blood Urea Nitrogen 11 mg/dL (8-24); Bun/Creatinine Ratio 18.8 (12.0-20.0); CO2, Blood 28 mmol/L (21-32); Calcium, Blood 8.8 mg/dL (8.5-10.1); Chloride, Blood 107 mmol/L (98-108); Creatinine, Blood 0.58 mg/dL (0.60-1.20); Glomerular Filtration Rate >60 (60-); Glucose, Blood 151 mg/dL (70-99); Lactate Dehydrogenase (Ld),Bld 245 U/L (100-240); Phosphorus, Blood 4.1 mg/dL (2.5-4.9); Potassium, Blood 3.9 mmol/L (3.5-5.5); Sodium, Blood 141 mmol/L (136-145); Total Protein, Blood 5.9 g/dL (6.4-8.2); Uric Acid, Blood 4.2 mg/dL (3.5-7.2)
== END 2019-12-24 16:15 | disposition home or self-care (01) ==
LOC: ATC 00:08
PROVIDERS: Internal Medicine Hematology & Oncology
DX: C83.79 Burkitt lymphoma, extranodal and solid organ sites (principal); E11.9 Type 2 diabetes mellitus without complications; E78.5 Hyperlipidemia, unspecified; Z87.891 Personal history of nicotine dependence; Z79.84 Long term (current) use of oral hypoglycemic drugs; Z79.899 Other long term (current) drug therapy
CPT/HCPCS: 80053; 83615; 83735; 84100; 84550; 85025; 86900; 86901; J7050; P9037

== ENCOUNTER 2019-12-30 13:40 | Day surgery (SDC) | payer BC ==
[2019-12-28 15:22] LABS: Hematocrit 22.4 % (37.0-53.0); Mean Corpuscular HGB 31.4 pg (26.0-34.0); Mean Corpuscular HGB Conc 35.7 g/dL (31.5-36.5); Mean Corpuscular Volume 88 fL (80-100); Mean Platelet Volume 11.2 fL (9.1-12.4); RDW Coefficient Variation 14.5 % (11.7-14.2); Red Blood Cell Count 2.55 M/mm3 (4.30-5.90)
[2019-12-28 15:24] LABS: Alanine Aminotransfer (ALT/SGP 25 U/L (12-78); Albumin, Blood 2.9 g/dL (3.4-5.0); Albumin/Globulin Ratio 0.8 (0.8-1.8); Alk Phos 89 U/L (50-136); Anion Gap 7 mmol/L (6-16); Aspartate Aminotrans (AST/SGOT 11 U/L (12-37); Blood Urea Nitrogen 17 mg/dL (8-24); Bun/Creatinine Ratio 25.4 (12.0-20.0); CO2, Blood 24 mmol/L (21-32); Chloride, Blood 106 mmol/L (98-108); Creatinine, Blood 0.67 mg/dL (0.60-1.20); Globulin, Blood 3.5 g/dL (2.2-4.0); Glomerular Filtration Rate >60 (60-); Glucose, Blood 174 mg/dL (70-99); Lactate Dehydrogenase (Ld),Bld 188 U/L (100-240); Magnesium, Blood 1.6 mg/dL (1.6-2.4); Phosphorus, Blood 3.4 mg/dL (2.5-4.9); Potassium, Blood 4.1 mmol/L (3.5-5.5); Sodium, Blood 137 mmol/L (136-145); Total Protein, Blood 6.4 g/dL (6.4-8.2); Uric Acid, Blood 4.2 mg/dL (3.5-7.2)
[2019-12-28 15:36] LABS: BASOPHILS PERCENT AUTO 0 % (0-2); EOSINOPHILS PERCENT AUTO 0 % (0-6); IMMATURE GRAN PERCENT AUTO 0 % (0-1); LYMPHOCYTES ABSOLUTE AUTO 0.11 K/mm3 (0.84-5.20); LYMPHOCYTES PERCENT AUTO 85 % (21-46); MONOCYTES ABSOLUTE AUTO 0.01 K/mm3 (0.16-1.47); MONOCYTES PERCENT AUTO 8 % (4-13); NEUTROPHILS ABSOLUTE AUTO 0.01 K/mm3 (1.96-9.15); NEUTROPHILS PERCENT AUTO 8 % (41-73)
[2019-12-28 15:37] LABS: White Blood Cell Count 0.13 K/mm3 (4.00-11.30)
[2019-12-28 15:38] LABS: Platelet Count 27 K/mm3 (150-400)
--- NOTE | 2019-12-28 16:57 | NUR ---
INSTRUCTED PT TO KEEP ARM BAND ON IN CASE OF BLOOD TRANSFUSION.
[~2019-12-30 13:40] MED LIST changes: -ACYC800 PO; -BASAGLAR K100 UNIT/1 SC; -FAMO20 PO; -FLUC200 PO; -OXYC5 PO; -TAMS.4ER PO; -XARELTO20 MG PO
== END 2019-12-30 14:59 | disposition home or self-care (01) ==
LOC: ATC 13:40
PROVIDERS: Internal Medicine Hematology & Oncology
DX: D69.6 Thrombocytopenia, unspecified (principal); C83.79 Burkitt lymphoma, extranodal and solid organ sites; E78.5 Hyperlipidemia, unspecified; E11.9 Type 2 diabetes mellitus without complications; N19 Unspecified kidney failure; R61 Generalized hyperhidrosis; G89.3 Neoplasm related pain (acute) (chronic); Z87.891 Personal history of nicotine dependence
CPT/HCPCS: 36430; 36592; 80053; 83615; 83735; 84100; 84550; 85025; 86900; 86901; J7050; P9035

== ENCOUNTER 2019-12-31 00:18 | Day surgery (SDC) | payer BC ==
[2019-12-31 14:33] LABS: Hematocrit 20.9 % (37.0-53.0); Hemoglobin 7.6 g/dL (13.5-17.5); Mean Corpuscular HGB 31.5 pg (26.0-34.0); Mean Corpuscular HGB Conc 36.4 g/dL (31.5-36.5); Mean Corpuscular Volume 87 fL (80-100); Mean Platelet Volume 10.8 fL (9.1-12.4); RDW Coefficient Variation 13.4 % (11.7-14.2); Red Blood Cell Count 2.41 M/mm3 (4.30-5.90)
[2019-12-31 14:42] LABS: BASOPHILS PERCENT AUTO 0 % (0-2); EOSINOPHILS ABSOLUTE AUTO 0.02 K/mm3 (0.00-0.68); EOSINOPHILS PERCENT AUTO 4 % (0-6); IMMATURE GRAN PERCENT AUTO 0 % (0-1); LYMPHOCYTES PERCENT AUTO 89 % (21-46); MONOCYTES ABSOLUTE AUTO 0.03 K/mm3 (0.16-1.47); MONOCYTES PERCENT AUTO 5 % (4-13); NEUTROPHILS ABSOLUTE AUTO 0.01 K/mm3 (1.96-9.15); NEUTROPHILS PERCENT AUTO 2 % (41-73)
[2019-12-31 14:44] LABS: Platelet Count 21 K/mm3 (150-400); White Blood Cell Count 0.56 K/mm3 (4.00-11.30)
[2019-12-31 14:59] LABS: Lactate Dehydrogenase (Ld),Bld 170 U/L (100-240); Magnesium, Blood 1.6 mg/dL (1.6-2.4); Uric Acid, Blood 3.7 mg/dL (3.5-7.2)
[2019-12-31 15:00] LABS: Alanine Aminotransfer (ALT/SGP 24 U/L (12-78); Albumin, Blood 3.1 g/dL (3.4-5.0); Albumin/Globulin Ratio 0.8 (0.8-1.8); Alk Phos 98 U/L (50-136); Anion Gap 6 mmol/L (6-16); Aspartate Aminotrans (AST/SGOT 11 U/L (12-37); Blood Urea Nitrogen 14 mg/dL (8-24); Bun/Creatinine Ratio 23.3 (12.0-20.0); CO2, Blood 25 mmol/L (21-32); Calcium, Blood 9.5 mg/dL (8.5-10.1); Chloride, Blood 106 mmol/L (98-108); Globulin, Blood 3.7 g/dL (2.2-4.0); Glomerular Filtration Rate >60 (60-); Glucose, Blood 160 mg/dL (70-99); Phosphorus, Blood 3.9 mg/dL (2.5-4.9); Potassium, Blood 4.1 mmol/L (3.5-5.5); Sodium, Blood 137 mmol/L (136-145); Total Protein, Blood 6.8 g/dL (6.4-8.2)
== END 2019-12-31 13:55 | disposition home or self-care (01) ==
LOC: ATC 00:18
PROVIDERS: Internal Medicine Hematology & Oncology
DX: C83.79 Burkitt lymphoma, extranodal and solid organ sites (principal); E86.0 Dehydration; D69.6 Thrombocytopenia, unspecified; D64.9 Anemia, unspecified; G89.3 Neoplasm related pain (acute) (chronic); R61 Generalized hyperhidrosis; R63.4 Abnormal weight loss; N19 Unspecified kidney failure; E11.9 Type 2 diabetes mellitus without complications; E78.5 Hyperlipidemia, unspecified; Z87.891 Personal history of nicotine dependence
CPT/HCPCS: 36592; 80053; 83615; 83735; 84100; 84550; 85025

== ENCOUNTER 2020-01-01 09:05 | Day surgery (SDC) | payer BC ==
[2020-01-03] MEDS ORDERED: NOVOLOG FL100 UNIT/1 (16:24)
[2020-01-03] MEDS ORDERED: BASAGLAR K100 UNIT/1 SC (16:25)
[2020-01-03] MEDS ORDERED: TAMS.4ER PO (16:25)
[2020-01-03] MEDS ORDERED: FLUC200 PO (16:26)
[2020-01-03] MEDS ORDERED: OXYC5 PO (16:26)
[2020-01-03] MEDS ORDERED: ALPRAZOLAM0.5 M1 PO (16:27)
[2020-01-03] MEDS ORDERED: ACYC800 PO (16:28)
[2020-01-03] MEDS ORDERED: XARELTO20 MG PO (16:28)
[2020-01-03] MEDS ORDERED: LEVFLO500 PO (16:28)
[2020-01-03] MEDS ORDERED: DIAZ5 PO (16:30)
[2020-01-03] MEDS ORDERED: CARB200 PO (16:34)
[2020-01-03] MEDS ORDERED: FAMO20 PO (16:34)
[2020-01-03] MEDS ORDERED: LIPITOR80 MG PO (16:35)
[2020-01-03] MEDS ORDERED: GABA300 PO (16:36)
[2020-01-03] MEDS ORDERED: METF500C PO (16:37)
[2020-01-03] MEDS ORDERED: ACTOS30 MG PO (16:38)
== END 2020-01-04 09:25 | disposition home or self-care (01) ==
LOC: ATC 09:05
DX: D64.9 Anemia, unspecified (principal); D69.6 Thrombocytopenia, unspecified; C83.79 Burkitt lymphoma, extranodal and solid organ sites
CPT/HCPCS: 36430; 36592; 86850; 86900; 86901; 86923; J7050; P9037; P9040

== ENCOUNTER 2020-01-02 00:10 | Day surgery (SDC) | payer BC ==
--- NOTE | 2020-01-02 14:43 | NUR ---
NEW END CAPS PLACED, SWAB CAP X2
[2020-01-02 15:29] LABS: Hematocrit 24.2 % (37.0-53.0); Hemoglobin 8.6 g/dL (13.5-17.5); Mean Corpuscular HGB 30.4 pg (26.0-34.0); Mean Corpuscular HGB Conc 35.5 g/dL (31.5-36.5); Mean Corpuscular Volume 86 fL (80-100); Mean Platelet Volume 10.7 fL (9.1-12.4); RDW Standard Deviation 43.4 fL (35.1-46.3); Red Blood Cell Count 2.83 M/mm3 (4.30-5.90)
[2020-01-02 15:32] LABS: BASOPHILS PERCENT AUTO 0 % (0-2); EOSINOPHILS ABSOLUTE AUTO 0.03 K/mm3 (0.00-0.68); EOSINOPHILS PERCENT AUTO 6 % (0-6); IMMATURE GRAN PERCENT AUTO 0 % (0-1); LYMPHOCYTES ABSOLUTE AUTO 0.42 K/mm3 (0.84-5.20); LYMPHOCYTES PERCENT AUTO 87 % (21-46); MONOCYTES ABSOLUTE AUTO 0.03 K/mm3 (0.16-1.47); MONOCYTES PERCENT AUTO 6 % (4-13); NEUTROPHILS PERCENT AUTO 0 % (41-73)
[2020-01-02 15:36] LABS: White Blood Cell Count 0.48 K/mm3 (4.00-11.30)
[2020-01-02 15:37] LABS: Platelet Count 31 K/mm3 (150-400)
[2020-01-02 15:48] LABS: Alanine Aminotransfer (ALT/SGP 23 U/L (12-78); Albumin/Globulin Ratio 0.8 (0.8-1.8); Alk Phos 102 U/L (50-136); Anion Gap 8 mmol/L (6-16); Aspartate Aminotrans (AST/SGOT 13 U/L (12-37); Bilirubin, Total 1.1 mg/dL (0.1-1.0); Blood Urea Nitrogen 18 mg/dL (8-24); Bun/Creatinine Ratio 27.6 (12.0-20.0); CO2, Blood 25 mmol/L (21-32); Calcium, Blood 9.2 mg/dL (8.5-10.1); Chloride, Blood 106 mmol/L (98-108); Creatinine, Blood 0.65 mg/dL (0.60-1.20); Globulin, Blood 3.6 g/dL (2.2-4.0); Glomerular Filtration Rate >60 (60-); Glucose, Blood 190 mg/dL (70-99); Lactate Dehydrogenase (Ld),Bld 166 U/L (100-240); Magnesium, Blood 1.6 mg/dL (1.6-2.4); Phosphorus, Blood 3.8 mg/dL (2.5-4.9); Potassium, Blood 4.2 mmol/L (3.5-5.5); Sodium, Blood 139 mmol/L (136-145); Total Protein, Blood 6.6 g/dL (6.4-8.2)
[2020-01-03] MEDS ORDERED: NOVOLOG FL100 UNIT/1 (16:24)
[2020-01-03] MEDS ORDERED: BASAGLAR K100 UNIT/1 SC (16:25)
[2020-01-03] MEDS ORDERED: TAMS.4ER PO (16:25)
[2020-01-03] MEDS ORDERED: FLUC200 PO (16:26)
[2020-01-03] MEDS ORDERED: OXYC5 PO (16:26)
[2020-01-03] MEDS ORDERED: ALPRAZOLAM0.5 M1 PO (16:27)
[2020-01-03] MEDS ORDERED: LEVFLO500 PO (16:28)
[2020-01-03] MEDS ORDERED: XARELTO20 MG PO (16:28)
[2020-01-03] MEDS ORDERED: ACYC800 PO (16:28)
[2020-01-03] MEDS ORDERED: DIAZ5 PO (16:30)
[2020-01-03] MEDS ORDERED: FAMO20 PO (16:34)
[2020-01-03] MEDS ORDERED: CARB200 PO (16:34)
[2020-01-03] MEDS ORDERED: LIPITOR80 MG PO (16:35)
[2020-01-03] MEDS ORDERED: GABA300 PO (16:36)
[2020-01-03] MEDS ORDERED: METF500C PO (16:37)
[2020-01-03] MEDS ORDERED: ACTOS30 MG PO (16:38)
== END 2020-01-02 23:14 | disposition home or self-care (01) ==
LOC: ATC 00:10
PROVIDERS: Internal Medicine Hematology & Oncology
DX: C83.79 Burkitt lymphoma, extranodal and solid organ sites (principal); E11.9 Type 2 diabetes mellitus without complications; E78.5 Hyperlipidemia, unspecified; Z87.891 Personal history of nicotine dependence; Z79.899 Other long term (current) drug therapy; Z79.4 Long term (current) use of insulin
CPT/HCPCS: 80053; 83615; 83735; 84100; 85025

== ENCOUNTER 2020-01-03 12:27 | Emergency (ER) | payer BC ==
[~2020-01-03] VITALS: Ht 180.3 cm; Wt 106.6 kg
[2020-01-03 14:07] LABS: Hematocrit 22.1 % (37.0-53.0); Hemoglobin 7.9 g/dL (13.5-17.5); Mean Corpuscular HGB 30.7 pg (26.0-34.0); Mean Corpuscular HGB Conc 35.7 g/dL (31.5-36.5); Mean Corpuscular Volume 86 fL (80-100); Mean Platelet Volume 10.8 fL (9.1-12.4); RDW Coefficient Variation 13.4 % (11.7-14.2); RDW Standard Deviation 41.8 fL (35.1-46.3); Red Blood Cell Count 2.57 M/mm3 (4.30-5.90)
[2020-01-03 14:20] LABS: International Normalized Ratio 1.21; Prothrombin Time Results 12.8 Sec (9.7-11.5)
[2020-01-03 14:21] LABS: BASOPHILS PERCENT AUTO 0 % (0-2); EOSINOPHILS ABSOLUTE AUTO 0.02 K/mm3 (0.00-0.68); EOSINOPHILS PERCENT AUTO 4 % (0-6); IMMATURE GRAN ABSOLUTE AUTO 0.01 K/mm3 (0.00-0.10); IMMATURE GRAN PERCENT AUTO 2 % (0-1); LYMPHOCYTES ABSOLUTE AUTO 0.48 K/mm3 (0.84-5.20); LYMPHOCYTES PERCENT AUTO 89 % (21-46); MONOCYTES ABSOLUTE AUTO 0.01 K/mm3 (0.16-1.47); MONOCYTES PERCENT AUTO 2 % (4-13); NEUTROPHILS ABSOLUTE AUTO 0.02 K/mm3 (1.96-9.15); NEUTROPHILS PERCENT AUTO 4 % (41-73)
[2020-01-03 14:23] LABS: Platelet Count 20 K/mm3 (150-400); White Blood Cell Count 0.54 K/mm3 (4.00-11.30)
[2020-01-03 14:40] LABS: Alanine Aminotransfer (ALT/SGP 19 U/L (12-78); Albumin, Blood 2.9 g/dL (3.4-5.0); Albumin/Globulin Ratio 0.8 (0.8-1.8); Alk Phos 99 U/L (50-136); Anion Gap 6 mmol/L (6-16); Aspartate Aminotrans (AST/SGOT 9 U/L (12-37); Bilirubin, Total 1.4 mg/dL (0.1-1.0); Blood Urea Nitrogen 12 mg/dL (8-24); Bun/Creatinine Ratio 15.6 (12.0-20.0); CO2, Blood 25 mmol/L (21-32); Calcium, Blood 8.6 mg/dL (8.5-10.1); Chloride, Blood 104 mmol/L (98-108); Creatinine, Blood 0.77 mg/dL (0.60-1.20); Globulin, Blood 3.5 g/dL (2.2-4.0); Glomerular Filtration Rate >60 (60-); Glucose, Blood 237 mg/dL (70-99); Potassium, Blood 4.3 mmol/L (3.5-5.5); Sodium, Blood 135 mmol/L (136-145); Total Protein, Blood 6.4 g/dL (6.4-8.2)
[2020-01-03 16:22] LABS: Adenovirus Not Detected (NOT DETECT); Bordetella pertussis Not Detected (NOT DETECT); Chlamydophila pneumoniae Not Detected (NOT DETECT); Coronavirus 229E Not Detected (NOT DETECT); Coronavirus HKU1 Not Detected (NOT DETECT); Coronavirus NL63 Not Detected (NOT DETECT); Coronavirus OC43 Not Detected (NOT DETECT); Human Metapneumovirus Not Detected (NOT DETECT); Human Rhinovirus/Enterovirus Detected (NOT DETECT); Influenza A/2009-H1 Not Detected (NOT DETECT); Influenza A/H1 Not Detected (NOT DETECT); Influenza A/H3 Not Detected (NOT DETECT); Influenza B Not Detected (NOT DETECT); Mycoplasma pneumoniae Not Detected (NOT DETECT); Parainfluenza Virus 1 Not Detected (NOT DETECT); Parainfluenza Virus 2 Not Detected (NOT DETECT); Parainfluenza Virus 3 Not Detected (NOT DETECT); Parainfluenza Virus 4 Not Detected (NOT DETECT); Respiratory Syncytial Virus Not Detected (NOT DETECT)
[2020-01-03] MEDS ORDERED: NOVOLOG FL100 UNIT/1 (16:24)
[2020-01-03] MEDS ORDERED: BASAGLAR K100 UNIT/1 SC (16:25)
[2020-01-03] MEDS ORDERED: TAMS.4ER PO (16:25)
[2020-01-03] MEDS ORDERED: FLUC200 PO (16:26)
[2020-01-03] MEDS ORDERED: OXYC5 PO (16:26)
[2020-01-03] MEDS ORDERED: ALPRAZOLAM0.5 M1 PO (16:27)
[2020-01-03] MEDS ORDERED: LEVFLO500 PO (16:28)
[2020-01-03] MEDS ORDERED: ACYC800 PO (16:28)
[2020-01-03] MEDS ORDERED: XARELTO20 MG PO (16:28)
[2020-01-03] MEDS ORDERED: DIAZ5 PO (16:30)
[2020-01-03] MEDS ORDERED: FAMO20 PO (16:34)
[2020-01-03] MEDS ORDERED: CARB200 PO (16:34)
[2020-01-03] MEDS ORDERED: LIPITOR80 MG PO (16:35)
[2020-01-03] MEDS ORDERED: GABA300 PO (16:36)
[2020-01-03] MEDS ORDERED: METF500C PO (16:37)
[2020-01-03] MEDS ORDERED: ACTOS30 MG PO (16:38)
== END 2020-01-03 18:43 | disposition home or self-care (01) ==
LOC: ER 12:27 → MEDS 16:33 → ER 16:33
PROVIDERS: Nurse Practitioner
DX: D70.9 Neutropenia, unspecified (principal); R50.81 Fever presenting with conditions classified elsewhere; D75.9 Disease of blood and blood-forming organs, unspecified; B34.1 Enterovirus infection, unspecified; D69.6 Thrombocytopenia, unspecified; E11.40 Type 2 diabetes mellitus with diabetic neuropathy, unspecified; E78.5 Hyperlipidemia, unspecified; G47.00 Insomnia, unspecified; G47.30 Sleep apnea, unspecified; I10 Essential (primary) hypertension; Z79.4 Long term (current) use of insulin; Z79.899 Other long term (current) drug therapy; Z87.891 Personal history of nicotine dependence
CPT/HCPCS: 0099U; 36430; 71046; 80053; 83605; 85025; 85610; 85730; 86850; 86900; 86901; 93005; 93010; 96365; 99285-25; J2543; J3370; J7030; J7050; P9035

== ENCOUNTER 2020-01-05 13:33 | Day surgery (SDC) | payer BC ==
[~2020-01-05 13:33] MED LIST changes: +ACTOS30 MG PO; +ACYC800 PO; +ALPRAZOLAM0.5 M1 PO; +BASAGLAR K100 UNIT/1 SC; +FAMO20 PO; +FLUC200 PO; +METF500C PO; +NOVOLOG FL100 UNIT/1 SC; +OXYC5 PO; +TAMS.4ER PO; +XARELTO20 MG PO
== END 2020-01-05 22:32 | disposition home or self-care (01) ==
LOC: ATC 13:33
DX: C83.79 Burkitt lymphoma, extranodal and solid organ sites (principal); E11.9 Type 2 diabetes mellitus without complications; E78.5 Hyperlipidemia, unspecified; Z87.891 Personal history of nicotine dependence; Z79.899 Other long term (current) drug therapy; Z79.4 Long term (current) use of insulin
CPT/HCPCS: J7050

== ENCOUNTER 2020-01-08 19:05 | Inpatient (IN) | payer OTHER, BC ==
[~2020-01-08] VITALS: Ht 180.3 cm; Wt 106.6 kg
[2020-01-08 20:21] LABS: Influenza A Negative (NEGATIVE); Influenza B Negative (NEGATIVE)
[2020-01-08 20:40] LABS: Hematocrit 22.3 % (37.0-53.0); Hemoglobin 7.8 g/dL (13.5-17.5); Mean Corpuscular HGB 29.8 pg (26.0-34.0); Mean Corpuscular Volume 85 fL (80-100); Mean Platelet Volume 9.5 fL (9.1-12.4); RDW Coefficient Variation 13.2 % (11.7-14.2); RDW Standard Deviation 41.2 fL (35.1-46.3); Red Blood Cell Count 2.62 M/mm3 (4.30-5.90)
[2020-01-08 20:43] LABS: Platelet Count 28 K/mm3 (150-400)
[2020-01-08 20:53] LABS: Anion Gap 5 mmol/L (6-16); Blood Urea Nitrogen 9 mg/dL (8-24); Bun/Creatinine Ratio 15.5 (12.0-20.0); CO2, Blood 26 mmol/L (21-32); Calcium, Blood 8.6 mg/dL (8.5-10.1); Chloride, Blood 101 mmol/L (98-108); Creatinine, Blood 0.58 mg/dL (0.60-1.20); Glomerular Filtration Rate >60 (60-); Glucose, Blood 287 mg/dL (70-99); Potassium, Blood 4.3 mmol/L (3.5-5.5); Sodium, Blood 132 mmol/L (136-145)
[2020-01-08 21:11] LABS: BAND PERCENT MAN 6 % (0-8); BASOPHILS PERCENT MAN 0 % (0-2); EOSINOPHILS PERCENT MAN 0 % (0-6); LYMPHOCYTES ABSOLUTE MAN 0.45 K/mm3 (0.84-5.20); LYMPHOCYTES PERCENT MAN 38 % (21-46); MONOCYTES ABSOLUTE MAN 0.09 K/mm3 (0.16-1.47); MONOCYTES PERCENT MAN 8 % (4-13); NEUTROPHILS ABSOLUTE MAN 0.64 K/mm3 (1.96-9.15); SEG NEUTROPHILS PERCENT MAN 48 % (41-73); TOTAL CELLS COUNTED 50
[2020-01-08 22:11] LABS: Source, Urine Clean Catch
[2020-01-08 22:14] LABS: Bilirubin, Urine Neg (Neg); Blood, Urine 2+ (Neg); Glucose Qualitative, Urine 3+ (Neg); Ketones, Urine Neg (Neg); Leukocyte Esterase, Urine Neg (Neg); Nitrite, Urine Neg (Neg); Protein, Urine 3+ (Neg); Urobilinogen, Urine NORM (Normal)
[2020-01-08 22:19] LABS: Appearance, Urine Clear (Clear); Color, Urine Yellow (P-Yellow)
[2020-01-08 22:20] LABS: Bacteria Mod /hpf; Squamous Epithelial Cells Not Seen /hpf (Few)
[2020-01-08 22:33] LABS: Adenovirus Not Detected (NOT DETECT); Bordetella pertussis Not Detected (NOT DETECT); Chlamydophila pneumoniae Not Detected (NOT DETECT); Coronavirus 229E Not Detected (NOT DETECT); Coronavirus HKU1 Not Detected (NOT DETECT); Coronavirus NL63 Not Detected (NOT DETECT); Coronavirus OC43 Not Detected (NOT DETECT); Human Metapneumovirus Not Detected (NOT DETECT); Human Rhinovirus/Enterovirus Detected (NOT DETECT); Influenza A/2009-H1 Not Detected (NOT DETECT); Influenza A/H1 Not Detected (NOT DETECT); Influenza A/H3 Not Detected (NOT DETECT); Influenza B Not Detected (NOT DETECT); Mycoplasma pneumoniae Not Detected (NOT DETECT); Parainfluenza Virus 1 Not Detected (NOT DETECT); Parainfluenza Virus 2 Not Detected (NOT DETECT); Parainfluenza Virus 3 Not Detected (NOT DETECT); Parainfluenza Virus 4 Not Detected (NOT DETECT); Respiratory Syncytial Virus Not Detected (NOT DETECT)
[2020-01-09 05:10] LABS: BASOPHILS ABSOLUTE AUTO 0.01 K/mm3 (0.00-0.23); BASOPHILS PERCENT AUTO 1 % (0-2); Hemoglobin 6.7 g/dL (13.5-17.5); Mean Corpuscular HGB 30.5 pg (26.0-34.0); Mean Corpuscular HGB Conc 35.3 g/dL (31.5-36.5); Mean Corpuscular Volume 86 fL (80-100); Mean Platelet Volume 9.8 fL (9.1-12.4); RDW Coefficient Variation 13.2 % (11.7-14.2); RDW Standard Deviation 41.5 fL (35.1-46.3); White Blood Cell Count 1.23 K/mm3 (4.00-11.30)
--- NOTE | 2020-01-09 05:11 | NUR ---
49 YR OLD MALE ADMITTED TO FLOOR FROM THE ED WITH DX OF PNEUMONIA, WITH RECENT HX OF CHEMO FOR BURKETTS LYMPHOMA. ON NEUTROPENIC PRECAUTIONS AND DROPLET PRECAUTIONS UNTIL RESP PANEL RESULTS RETURN. IVF OF NS CONTINUE AT 100 ML/HR. ALERT AND ORIENTED X 4. CURRENTLY USING C PAP. ORIENTED TO USE OF CALL LIGHT. CALL LIGHT IN REACH.
[2020-01-09 05:13] LABS: EOSINOPHILS PERCENT AUTO 0 % (0-6); IMMATURE GRAN ABSOLUTE AUTO 0.02 K/mm3 (0.00-0.10); IMMATURE GRAN PERCENT AUTO 2 % (0-1); LYMPHOCYTES ABSOLUTE AUTO 0.31 K/mm3 (0.84-5.20); LYMPHOCYTES PERCENT AUTO 25 % (21-46); MONOCYTES ABSOLUTE AUTO 0.22 K/mm3 (0.16-1.47); MONOCYTES PERCENT AUTO 18 % (4-13); NEUTROPHILS ABSOLUTE AUTO 0.67 K/mm3 (1.96-9.15); NEUTROPHILS PERCENT AUTO 55 % (41-73)
[2020-01-09 05:14] LABS: Platelet Count 28 K/mm3 (150-400)
[2020-01-09 05:32] LABS: Anion Gap 4 mmol/L (6-16); Blood Urea Nitrogen 6 mg/dL (8-24); Bun/Creatinine Ratio 9.9 (12.0-20.0); CO2, Blood 27 mmol/L (21-32); Calcium, Blood 7.7 mg/dL (8.5-10.1); Chloride, Blood 107 mmol/L (98-108); Creatinine, Blood 0.61 mg/dL (0.60-1.20); Glomerular Filtration Rate >60 (60-); Glucose, Blood 219 mg/dL (70-99); Potassium, Blood 4.1 mmol/L (3.5-5.5); Sodium, Blood 138 mmol/L (136-145)
[2020-01-09 05:36] LABS: BAND PERCENT MAN 4 % (0-8); BASOPHILS PERCENT MAN 0 % (0-2); EOSINOPHILS PERCENT MAN 0 % (0-6); LYMPHOCYTES ABSOLUTE MAN 0.29 K/mm3 (0.84-5.20); LYMPHOCYTES PERCENT MAN 24 % (21-46); METAMYELOCYTE ABSOLUTE MAN 0.04 K/mm3 (0.00-0.00); METAMYELOCYTE PERCENT MAN 4 % (0-0); MONOCYTES ABSOLUTE MAN 0.15 K/mm3 (0.16-1.47); MONOCYTES PERCENT MAN 13 % (4-13); NEUTROPHILS ABSOLUTE MAN 0.72 K/mm3 (1.96-9.15); SEG NEUTROPHILS PERCENT MAN 55 % (41-73); TOTAL CELLS COUNTED 100
--- NOTE | 2020-01-09 05:49 | NUR ---
HGB 6.7, MD ORDERED TYPE.SCREEN AND TO INFUSE 1 UNIT PRBC
--- NOTE | 2020-01-09 07:21 | NUR ---
RSP PANEL RESULTS OBTAINED. INF DISEASE CALLED AND TOOK PT OFF DROPLET ISOLATION - HAS A COLD. BUT REMAINS ON NEUTROPENIC PRECAUTIONS. BLOOD BANK ALSO CALLED, PT SCHEDULED TO GET 1 UNIT PRBC (IRRADIATED). CALL LIGHT IN REACH
--- NOTE | 2020-01-09 13:15 | NUR ---
Informed dr that pt had a low grade fever 99.9, heart rate at 99-104 and a bp at 94/54, he said he would order a blood culture and to continue to moniotor and treat
--- NOTE | 2020-01-09 16:27 | NUR ---
Pt currently in isolation and due to restrictions this RN did not enter Pt's room. Discussed case with Bedside RN Roshan. Called Pt's room by phone and had brief conversation with Pt. Pt reports a tolerable 2/10 head ache. Pt denies nausea, dyspnea, and anxiety. Pt reports only concern is how long he will be in the hospital. Pt reports seeing Dr Blanc and Dr Rivers today. He reports forgeting to ask them this question. Suggested to Pt to write down any questions on paper to help him remember for next rounding. Pt reports no other concerns at this time. Pt is agreeable for Palliative Care to F/U during his hospital stay. Palliative Care will remain available.
--- NOTE | 2020-01-09 18:01 | NUR ---
Initial spiritual care note: Mr. Waite was dismissive of pastoral care at this time. Advised director of teaching and learning services will remain available.
--- NOTE | 2020-01-09 18:23 | NUR ---
a+o, enhanced isolation, neutropenic, call light in reach, will continue to monitor and treat until share bsr with noc nurse, changed to neutropinic and enhanced isolation, given granix as well as abx picc line only has one viable lumen, a+o, able to sit on side of bed to use urinal, will continue to monitor and treat until share bsr with noc nurse
--- NOTE | 2020-01-10 05:33 | NUR ---
PT REMAINS ON ENHANCED ISOLATION PRECAUTIONS UNTIL COVID 19 IS RULED OUT. REMAINS ON NEUTROPENIC PRECAUTIONS WELL. IV ANTIBIOTICS AND PO TYLENOL ADMINISTERED PER MD ORDERS - SEE MAR FOR DETAILS. CALL LIGHT IN REACH.
[2020-01-10 06:20] LABS: Hematocrit 23.2 % (37.0-53.0); Hemoglobin 8.2 g/dL (13.5-17.5); Mean Corpuscular HGB Conc 35.3 g/dL (31.5-36.5); Mean Corpuscular Volume 85 fL (80-100); Mean Platelet Volume 9.7 fL (9.1-12.4); RDW Coefficient Variation 13.4 % (11.7-14.2); RDW Standard Deviation 41.1 fL (35.1-46.3); Red Blood Cell Count 2.73 M/mm3 (4.30-5.90); White Blood Cell Count 2.61 K/mm3 (4.00-11.30)
[2020-01-10 06:34] LABS: Alanine Aminotransfer (ALT/SGP 21 U/L (12-78); Albumin/Globulin Ratio 0.5 (0.8-1.8); Alk Phos 86 U/L (50-136); Anion Gap 5 mmol/L (6-16); Aspartate Aminotrans (AST/SGOT 19 U/L (12-37); Bilirubin, Total 0.6 mg/dL (0.1-1.0); Blood Urea Nitrogen 7 mg/dL (8-24); Bun/Creatinine Ratio 9.7 (12.0-20.0); CO2, Blood 26 mmol/L (21-32); Calcium, Blood 8.2 mg/dL (8.5-10.1); Chloride, Blood 108 mmol/L (98-108); Creatinine, Blood 0.72 mg/dL (0.60-1.20); Globulin, Blood 3.8 g/dL (2.2-4.0); Glomerular Filtration Rate >60 (60-); Glucose, Blood 190 mg/dL (70-99); Potassium, Blood 3.8 mmol/L (3.5-5.5); Sodium, Blood 139 mmol/L (136-145); Total Protein, Blood 5.8 g/dL (6.4-8.2)
[2020-01-10 06:45] LABS: BAND PERCENT MAN 3 % (0-8); BASOPHILS PERCENT MAN 0 % (0-2); EOSINOPHILS PERCENT MAN 0 % (0-6); LYMPHOCYTES % ATYPICAL MANUAL 2 % (0-0); LYMPHOCYTES PERCENT MAN 15 % (21-46); METAMYELOCYTE PERCENT MAN 2 % (0-0); MONOCYTES PERCENT MAN 5 % (4-13); MYELOCYTE PERCENT MAN 1 % (0-0); SEG NEUTROPHILS PERCENT MAN 72 % (41-73); TOTAL CELLS COUNTED 100
[2020-01-10 06:48] LABS: EOSINOPHILS PERCENT AUTO 0 % (0-6); IMMATURE GRAN ABSOLUTE AUTO 0.21 K/mm3 (0.00-0.10); IMMATURE GRAN PERCENT AUTO 8 % (0-1); NEUTROPHILS ABSOLUTE AUTO 1.57 K/mm3 (1.96-9.15); NEUTROPHILS PERCENT AUTO 60 % (41-73); Platelet Count 27 K/mm3 (150-400)
--- NOTE | 2020-01-10 08:14 | NUR ---
A+O, MEDICATED PRESCRIBED, report received from noc shift, pt kept up most of the night due to treatments, tired today also due to treatments, call light in reach, vss, wheeze in l upper lobe, rest clear, ate meal but not impressed with options, CL platletts reported to noc shift, hbg up slightly, bed in low position, rm air, used cp during noc, will continue to monitor and treat
--- NOTE | 2020-01-10 13:07 | NUR ---
stipulated that the picc line was to go home on the pt
[2020-01-10] MEDS ORDERED: CEFD300 PO ×2 (13:56)
--- NOTE | 2020-01-10 15:10 | NUR ---
A+O, IV REMOVED, BELONGINGS TAKEN DOWN, INSTRUCTIONS + MEDICATIONS + STAY EXPECTATIONS WERE REVIEWED, MED LIST SUPPLIED TO PHARMACY, PT IN ASSISTED TO AND IN FAMILY CAR, ACKNOLEGED THE NEED TO SELF ISOLATE EVEN WHEN TEST RESULTS KNOWN
--- NOTE | 2020-01-10 15:41 | NUR ---
PICC LINE REMAINED IN R U ARM PER 'S ORDERS
== END 2020-01-10 14:34 | disposition home or self-care (01) | DRG 194 ==
LOC: ER 19:05 → MEDS 23:22
PROVIDERS: Emergency Medicine; Internal Medicine; Nurse Practitioner Acute Care; ADMIT Family Medicine
PROC: 30233N1 Transfusion of Nonautologous Red Blood Cells into Peripheral Vein, Percutaneous Approach (ICD-10-PCS; principal; 2020-01-08)
PROC: 02HV33Z Insertion of Infusion Device into Superior Vena Cava, Percutaneous Approach (ICD-10-PCS; 2020-01-08)
DX: J18.9 Pneumonia, unspecified organism (principal); C83.78 Burkitt lymphoma, lymph nodes of multiple sites; D61.818 Other pancytopenia; D70.1 Agranulocytosis secondary to cancer chemotherapy; D69.59 Other secondary thrombocytopenia; B97.89 Other viral agents as the cause of diseases classified elsewhere; Z92.21 Personal history of antineoplastic chemotherapy; G47.33 Obstructive sleep apnea (adult) (pediatric); Z86.718 Personal history of other venous thrombosis and embolism; Z79.01 Long term (current) use of anticoagulants; Z86.711 Personal history of pulmonary embolism; D64.81 Anemia due to antineoplastic chemotherapy; E78.5 Hyperlipidemia, unspecified; Z87.891 Personal history of nicotine dependence; Z79.4 Long term (current) use of insulin; I10 Essential (primary) hypertension; E11.40 Type 2 diabetes mellitus with diabetic neuropathy, unspecified; E11.65 Type 2 diabetes mellitus with hyperglycemia; I95.9 Hypotension, unspecified; D70.9 Neutropenia, unspecified; R50.81 Fever presenting with conditions classified elsewhere
CPT/HCPCS: 0099U; 36415; 36430; 71045; 80048; 80053; 81001; 82947; 83605; 84145; 85025; 86850; 86900; 86901; 86923; 87040; 87086; 87804; 94660; 96361; 96365; 96367; 99285-25; A9270; A9270-GY; J0456; J0696; J1447; J2543; J3370; J7030; J7050; P9016; U0002

== ENCOUNTER 2020-01-11 00:25 | Day surgery (SDC) | payer BC ==
[~2020-01-11 00:25] MED LIST changes: +CEFD300 PO
[2020-01-11 11:57] LABS: Hematocrit 24.7 % (37.0-53.0); Hemoglobin 8.5 g/dL (13.5-17.5); Mean Corpuscular HGB 29.7 pg (26.0-34.0); Mean Corpuscular HGB Conc 34.4 g/dL (31.5-36.5); Mean Corpuscular Volume 86 fL (80-100); Mean Platelet Volume 10.3 fL (9.1-12.4); RDW Coefficient Variation 13.3 % (11.7-14.2); RDW Standard Deviation 41.6 fL (35.1-46.3); Red Blood Cell Count 2.86 M/mm3 (4.30-5.90); White Blood Cell Count 3.68 K/mm3 (4.00-11.30)
[2020-01-11 12:06] LABS: Platelet Count 32 K/mm3 (150-400)
[2020-01-11 12:08] LABS: Alanine Aminotransfer (ALT/SGP 30 U/L (12-78); Albumin, Blood 2.3 g/dL (3.4-5.0); Albumin/Globulin Ratio 0.6 (0.8-1.8); Alk Phos 112 U/L (50-136); Anion Gap 9 mmol/L (6-16); Aspartate Aminotrans (AST/SGOT 21 U/L (12-37); Bilirubin, Total 0.5 mg/dL (0.1-1.0); Blood Urea Nitrogen 8 mg/dL (8-24); CO2, Blood 24 mmol/L (21-32); Calcium, Blood 8.8 mg/dL (8.5-10.1); Chloride, Blood 105 mmol/L (98-108); Creatinine, Blood 0.47 mg/dL (0.60-1.20); Globulin, Blood 4.1 g/dL (2.2-4.0); Glomerular Filtration Rate >60 (60-); Glucose, Blood 357 mg/dL (70-99); Lactate Dehydrogenase (Ld),Bld 255 U/L (100-240); Magnesium, Blood 1.8 mg/dL (1.6-2.4); Potassium, Blood 3.7 mmol/L (3.5-5.5); Sodium, Blood 138 mmol/L (136-145); Total Protein, Blood 6.4 g/dL (6.4-8.2); Uric Acid, Blood 2.6 mg/dL (3.5-7.2)
[2020-01-11 12:36] LABS: BAND PERCENT MAN 7 % (0-8); BASOPHILS PERCENT MAN 0 % (0-2); EOSINOPHILS PERCENT MAN 0 % (0-6); LYMPHOCYTES ABSOLUTE MAN 0.44 K/mm3 (0.84-5.20); LYMPHOCYTES PERCENT MAN 12 % (21-46); MONOCYTES ABSOLUTE MAN 0.55 K/mm3 (0.16-1.47); MONOCYTES PERCENT MAN 15 % (4-13); MYELOCYTE ABSOLUTE MAN 0.07 K/mm3 (0.00-0.00); MYELOCYTE PERCENT MAN 2 % (0-0); NEUTROPHILS ABSOLUTE MAN 2.61 K/mm3 (1.96-9.15); SEG NEUTROPHILS PERCENT MAN 64 % (41-73); TOTAL CELLS COUNTED 100
== END 2020-01-11 15:05 | disposition home or self-care (01) ==
LOC: ATC 00:25
PROVIDERS: Internal Medicine Hematology & Oncology
DX: C83.79 Burkitt lymphoma, extranodal and solid organ sites (principal); E11.9 Type 2 diabetes mellitus without complications; E78.5 Hyperlipidemia, unspecified; Z87.891 Personal history of nicotine dependence; Z79.899 Other long term (current) drug therapy; Z79.4 Long term (current) use of insulin
CPT/HCPCS: 80053; 83615; 83735; 84100; 84550; 85025; J7050; P9037

== ENCOUNTER 2020-01-14 00:38 | Day surgery (SDC) | payer BC ==
[2020-01-14 11:33] LABS: BASOPHILS ABSOLUTE AUTO 0.03 K/mm3 (0.00-0.23); BASOPHILS PERCENT AUTO 1 % (0-2); EOSINOPHILS PERCENT AUTO 0 % (0-6); Hematocrit 27.9 % (37.0-53.0); Hemoglobin 9.3 g/dL (13.5-17.5); IMMATURE GRAN PERCENT AUTO 4 % (0-1); LYMPHOCYTES ABSOLUTE AUTO 0.53 K/mm3 (0.84-5.20); LYMPHOCYTES PERCENT AUTO 12 % (21-46); MONOCYTES ABSOLUTE AUTO 1.09 K/mm3 (0.16-1.47); MONOCYTES PERCENT AUTO 24 % (4-13); Mean Corpuscular HGB 29.2 pg (26.0-34.0); Mean Corpuscular HGB Conc 33.3 g/dL (31.5-36.5); Mean Corpuscular Volume 88 fL (80-100); Mean Platelet Volume 10.4 fL (9.1-12.4); NEUTROPHILS ABSOLUTE AUTO 2.68 K/mm3 (1.96-9.15); NEUTROPHILS PERCENT AUTO 59 % (41-73); NRBC ABSOLUTE 0.04 K/mm3 (0.00-0.02); NRBC Auto 0.9 /100 WBC (0.0-0.2); Platelet Count 68 K/mm3 (150-400); RDW Coefficient Variation 13.1 % (11.7-14.2); RDW Standard Deviation 41.7 fL (35.1-46.3); Red Blood Cell Count 3.18 M/mm3 (4.30-5.90); White Blood Cell Count 4.53 K/mm3 (4.00-11.30)
--- NOTE | 2020-01-14 13:05 | NUR ---
UNABLE TO GET RED PART OPEN WITH [facility]. TALKED TO ALLIE FROM DR. OCHOA AND NO BLOOD NEEDED.
[2020-01-14 13:24] LABS: Alanine Aminotransfer (ALT/SGP 22 U/L (12-78); Albumin, Blood 2.1 g/dL (3.4-5.0); Albumin/Globulin Ratio 0.6 (0.8-1.8); Alk Phos 97 U/L (50-136); Anion Gap 6 mmol/L (6-16); Aspartate Aminotrans (AST/SGOT 12 U/L (12-37); Bilirubin, Total 0.2 mg/dL (0.1-1.0); Blood Urea Nitrogen 5 mg/dL (8-24); Bun/Creatinine Ratio 8.8 (12.0-20.0); CO2, Blood 26 mmol/L (21-32); Chloride, Blood 106 mmol/L (98-108); Creatinine, Blood 0.57 mg/dL (0.60-1.20); Globulin, Blood 3.5 g/dL (2.2-4.0); Glomerular Filtration Rate >60 (60-); Glucose, Blood 246 mg/dL (70-99); Lactate Dehydrogenase (Ld),Bld 212 U/L (100-240); Magnesium, Blood 1.4 mg/dL (1.6-2.4); Phosphorus, Blood 2.4 mg/dL (2.5-4.9); Potassium, Blood 3.6 mmol/L (3.5-5.5); Sodium, Blood 138 mmol/L (136-145); Total Protein, Blood 5.6 g/dL (6.4-8.2); Uric Acid, Blood 3.8 mg/dL (3.5-7.2)
== END 2020-01-14 12:50 | disposition home or self-care (01) ==
LOC: ATC 00:38
PROVIDERS: Internal Medicine Hematology & Oncology
DX: C83.79 Burkitt lymphoma, extranodal and solid organ sites (principal); Z87.891 Personal history of nicotine dependence
CPT/HCPCS: 80053; 83615; 83735; 84100; 84550; 85025; J2997; J7030

== ENCOUNTER 2020-01-16 00:15 | Day surgery (SDC) | payer BC ==
[2020-01-16 11:27] LABS: BASOPHILS ABSOLUTE AUTO 0.02 K/mm3 (0.00-0.23); BASOPHILS PERCENT AUTO 0 % (0-2); EOSINOPHILS PERCENT AUTO 0 % (0-6); Hematocrit 28.1 % (37.0-53.0); Hemoglobin 9.6 g/dL (13.5-17.5); IMMATURE GRAN ABSOLUTE AUTO 0.16 K/mm3 (0.00-0.10); IMMATURE GRAN PERCENT AUTO 3 % (0-1); LYMPHOCYTES PERCENT AUTO 13 % (21-46); MONOCYTES ABSOLUTE AUTO 1.04 K/mm3 (0.16-1.47); MONOCYTES PERCENT AUTO 19 % (4-13); Mean Corpuscular HGB 29.9 pg (26.0-34.0); Mean Corpuscular HGB Conc 34.2 g/dL (31.5-36.5); Mean Corpuscular Volume 88 fL (80-100); Mean Platelet Volume 9.6 fL (9.1-12.4); NEUTROPHILS ABSOLUTE AUTO 3.45 K/mm3 (1.96-9.15); NEUTROPHILS PERCENT AUTO 64 % (41-73); NRBC ABSOLUTE 0.04 K/mm3 (0.00-0.02); NRBC Auto 0.7 /100 WBC (0.0-0.2); Platelet Count 106 K/mm3 (150-400); RDW Coefficient Variation 12.8 % (11.7-14.2); RDW Standard Deviation 40.5 fL (35.1-46.3); Red Blood Cell Count 3.21 M/mm3 (4.30-5.90); White Blood Cell Count 5.37 K/mm3 (4.00-11.30)
[2020-01-16 11:46] LABS: Alanine Aminotransfer (ALT/SGP 25 U/L (12-78); Albumin, Blood 2.4 g/dL (3.4-5.0); Albumin/Globulin Ratio 0.6 (0.8-1.8); Alk Phos 110 U/L (50-136); Anion Gap 8 mmol/L (6-16); Aspartate Aminotrans (AST/SGOT 14 U/L (12-37); Bilirubin, Total 0.3 mg/dL (0.1-1.0); Blood Urea Nitrogen 4 mg/dL (8-24); Bun/Creatinine Ratio 6.8 (12.0-20.0); CO2, Blood 27 mmol/L (21-32); Calcium, Blood 8.8 mg/dL (8.5-10.1); Chloride, Blood 103 mmol/L (98-108); Creatinine, Blood 0.59 mg/dL (0.60-1.20); Glomerular Filtration Rate >60 (60-); Glucose, Blood 280 mg/dL (70-99); Lactate Dehydrogenase (Ld),Bld 247 U/L (100-240); Magnesium, Blood 1.5 mg/dL (1.6-2.4); Phosphorus, Blood 2.4 mg/dL (2.5-4.9); Potassium, Blood 3.7 mmol/L (3.5-5.5); Sodium, Blood 138 mmol/L (136-145); Total Protein, Blood 6.4 g/dL (6.4-8.2); Uric Acid, Blood 3.7 mg/dL (3.5-7.2)
== END 2020-01-16 12:58 | disposition home or self-care (01) ==
LOC: ATC 00:15
PROVIDERS: Internal Medicine Hematology & Oncology
DX: C83.79 Burkitt lymphoma, extranodal and solid organ sites (principal); E11.9 Type 2 diabetes mellitus without complications; E78.5 Hyperlipidemia, unspecified; Z87.891 Personal history of nicotine dependence; Z79.4 Long term (current) use of insulin; Z79.899 Other long term (current) drug therapy
CPT/HCPCS: 80053; 83615; 83735; 84100; 84550; 85025; J2405; J7030

== ENCOUNTER 2020-01-18 01:19 | Day surgery (SDC) | payer BC ==
[2020-01-18 11:50] LABS: BASOPHILS ABSOLUTE AUTO 0.01 K/mm3 (0.00-0.23); BASOPHILS PERCENT AUTO 0 % (0-2); EOSINOPHILS PERCENT AUTO 0 % (0-6); Hematocrit 25.7 % (37.0-53.0); Hemoglobin 8.5 g/dL (13.5-17.5); IMMATURE GRAN ABSOLUTE AUTO 0.13 K/mm3 (0.00-0.10); IMMATURE GRAN PERCENT AUTO 2 % (0-1); LYMPHOCYTES ABSOLUTE AUTO 0.57 K/mm3 (0.84-5.20); LYMPHOCYTES PERCENT AUTO 10 % (21-46); MONOCYTES ABSOLUTE AUTO 0.95 K/mm3 (0.16-1.47); MONOCYTES PERCENT AUTO 17 % (4-13); Mean Corpuscular HGB 29.5 pg (26.0-34.0); Mean Corpuscular HGB Conc 33.1 g/dL (31.5-36.5); Mean Corpuscular Volume 89 fL (80-100); NEUTROPHILS ABSOLUTE AUTO 3.96 K/mm3 (1.96-9.15); NEUTROPHILS PERCENT AUTO 71 % (41-73); NRBC ABSOLUTE 0.03 K/mm3 (0.00-0.02); NRBC Auto 0.5 /100 WBC (0.0-0.2); Platelet Count 143 K/mm3 (150-400); RDW Coefficient Variation 13.2 % (11.7-14.2); RDW Standard Deviation 41.6 fL (35.1-46.3); Red Blood Cell Count 2.88 M/mm3 (4.30-5.90); White Blood Cell Count 5.62 K/mm3 (4.00-11.30)
[2020-01-18 12:15] LABS: Alanine Aminotransfer (ALT/SGP 26 U/L (12-78); Albumin, Blood 2.3 g/dL (3.4-5.0); Albumin/Globulin Ratio 0.6 (0.8-1.8); Alk Phos 111 U/L (50-136); Anion Gap 6 mmol/L (6-16); Aspartate Aminotrans (AST/SGOT 17 U/L (12-37); Bilirubin, Total 0.3 mg/dL (0.1-1.0); Blood Urea Nitrogen 5 mg/dL (8-24); Bun/Creatinine Ratio 8.8 (12.0-20.0); CO2, Blood 28 mmol/L (21-32); Calcium, Blood 8.8 mg/dL (8.5-10.1); Chloride, Blood 103 mmol/L (98-108); Creatinine, Blood 0.57 mg/dL (0.60-1.20); Glomerular Filtration Rate >60 (60-); Glucose, Blood 251 mg/dL (70-99); Lactate Dehydrogenase (Ld),Bld 267 U/L (100-240); Magnesium, Blood 1.6 mg/dL (1.6-2.4); Phosphorus, Blood 2.6 mg/dL (2.5-4.9); Potassium, Blood 4.1 mmol/L (3.5-5.5); Sodium, Blood 137 mmol/L (136-145); Total Protein, Blood 6.3 g/dL (6.4-8.2); Uric Acid, Blood 3.4 mg/dL (3.5-7.2)
== END 2020-01-18 11:35 | disposition home or self-care (01) ==
LOC: ATC 01:19
PROVIDERS: Internal Medicine Hematology & Oncology
DX: C83.79 Burkitt lymphoma, extranodal and solid organ sites (principal); E11.9 Type 2 diabetes mellitus without complications; E78.5 Hyperlipidemia, unspecified; Z87.891 Personal history of nicotine dependence; Z79.4 Long term (current) use of insulin; Z79.899 Other long term (current) drug therapy
CPT/HCPCS: 36592; 80053; 83615; 83735; 84100; 84550; 85025

== ENCOUNTER 2020-01-21 00:05 | Day surgery (SDC) | payer BC ==
[2020-01-21 11:41] LABS: BASOPHILS ABSOLUTE AUTO 0.02 K/mm3 (0.00-0.23); BASOPHILS PERCENT AUTO 0 % (0-2); EOSINOPHILS PERCENT AUTO 0 % (0-6); Hematocrit 29.4 % (37.0-53.0); Hemoglobin 9.7 g/dL (13.5-17.5); IMMATURE GRAN ABSOLUTE AUTO 0.06 K/mm3 (0.00-0.10); IMMATURE GRAN PERCENT AUTO 1 % (0-1); LYMPHOCYTES ABSOLUTE AUTO 0.88 K/mm3 (0.84-5.20); LYMPHOCYTES PERCENT AUTO 12 % (21-46); MONOCYTES ABSOLUTE AUTO 0.88 K/mm3 (0.16-1.47); MONOCYTES PERCENT AUTO 12 % (4-13); Mean Corpuscular HGB 29.8 pg (26.0-34.0); Mean Corpuscular Volume 91 fL (80-100); Mean Platelet Volume 9.7 fL (9.1-12.4); NEUTROPHILS ABSOLUTE AUTO 5.42 K/mm3 (1.96-9.15); NEUTROPHILS PERCENT AUTO 75 % (41-73); NRBC ABSOLUTE 0.02 K/mm3 (0.00-0.02); NRBC Auto 0.3 /100 WBC (0.0-0.2); Platelet Count 246 K/mm3 (150-400); RDW Coefficient Variation 14.3 % (11.7-14.2); RDW Standard Deviation 44.1 fL (35.1-46.3); Red Blood Cell Count 3.25 M/mm3 (4.30-5.90); White Blood Cell Count 7.26 K/mm3 (4.00-11.30)
[2020-01-21 12:01] LABS: Alanine Aminotransfer (ALT/SGP 33 U/L (12-78); Albumin, Blood 2.4 g/dL (3.4-5.0); Albumin/Globulin Ratio 0.6 (0.8-1.8); Alk Phos 109 U/L (50-136); Anion Gap 6 mmol/L (6-16); Aspartate Aminotrans (AST/SGOT 23 U/L (12-37); Bilirubin, Total 0.3 mg/dL (0.1-1.0); Blood Urea Nitrogen 6 mg/dL (8-24); Bun/Creatinine Ratio 8.9 (12.0-20.0); CO2, Blood 29 mmol/L (21-32); Calcium, Blood 9.2 mg/dL (8.5-10.1); Chloride, Blood 103 mmol/L (98-108); Creatinine, Blood 0.68 mg/dL (0.60-1.20); Glomerular Filtration Rate >60 (60-); Glucose, Blood 291 mg/dL (70-99); Lactate Dehydrogenase (Ld),Bld 235 U/L (100-240); Magnesium, Blood 1.7 mg/dL (1.6-2.4); Phosphorus, Blood 2.9 mg/dL (2.5-4.9); Potassium, Blood 3.7 mmol/L (3.5-5.5); Sodium, Blood 138 mmol/L (136-145); Total Protein, Blood 6.4 g/dL (6.4-8.2)
[2020-01-21 12:09] LABS: Uric Acid, Blood 4.3 mg/dL (3.5-7.2)
== END 2020-01-21 12:35 | disposition home or self-care (01) ==
LOC: ATC 00:05
PROVIDERS: Internal Medicine Hematology & Oncology
DX: C83.79 Burkitt lymphoma, extranodal and solid organ sites (principal); E11.9 Type 2 diabetes mellitus without complications; E78.5 Hyperlipidemia, unspecified; Z87.891 Personal history of nicotine dependence; Z79.4 Long term (current) use of insulin; Z79.899 Other long term (current) drug therapy
CPT/HCPCS: 80053; 83615; 83735; 84100; 84550; 85025; J7030

== ENCOUNTER 2020-01-23 01:59 | Day surgery (SDC) | payer BC ==
[2020-01-23 11:52] LABS: BASOPHILS ABSOLUTE AUTO 0.04 K/mm3 (0.00-0.23); BASOPHILS PERCENT AUTO 1 % (0-2); EOSINOPHILS PERCENT AUTO 0 % (0-6); Hematocrit 30.2 % (37.0-53.0); Hemoglobin 9.6 g/dL (13.5-17.5); IMMATURE GRAN ABSOLUTE AUTO 0.04 K/mm3 (0.00-0.10); IMMATURE GRAN PERCENT AUTO 1 % (0-1); LYMPHOCYTES ABSOLUTE AUTO 1.02 K/mm3 (0.84-5.20); LYMPHOCYTES PERCENT AUTO 20 % (21-46); MONOCYTES ABSOLUTE AUTO 0.86 K/mm3 (0.16-1.47); MONOCYTES PERCENT AUTO 17 % (4-13); Mean Corpuscular HGB 29.1 pg (26.0-34.0); Mean Corpuscular HGB Conc 31.8 g/dL (31.5-36.5); Mean Corpuscular Volume 92 fL (80-100); Mean Platelet Volume 9.4 fL (9.1-12.4); NEUTROPHILS ABSOLUTE AUTO 3.23 K/mm3 (1.96-9.15); NEUTROPHILS PERCENT AUTO 62 % (41-73); Platelet Count 305 K/mm3 (150-400); RDW Standard Deviation 45.8 fL (35.1-46.3); White Blood Cell Count 5.19 K/mm3 (4.00-11.30)
[2020-01-23 12:05] LABS: Alanine Aminotransfer (ALT/SGP 37 U/L (12-78); Albumin, Blood 2.5 g/dL (3.4-5.0); Albumin/Globulin Ratio 0.7 (0.8-1.8); Alk Phos 109 U/L (50-136); Anion Gap 8 mmol/L (6-16); Aspartate Aminotrans (AST/SGOT 28 U/L (12-37); Bilirubin, Total 0.2 mg/dL (0.1-1.0); Blood Urea Nitrogen 5 mg/dL (8-24); Bun/Creatinine Ratio 9.1 (12.0-20.0); CO2, Blood 25 mmol/L (21-32); Calcium, Blood 8.8 mg/dL (8.5-10.1); Chloride, Blood 106 mmol/L (98-108); Creatinine, Blood 0.55 mg/dL (0.60-1.20); Globulin, Blood 3.8 g/dL (2.2-4.0); Glomerular Filtration Rate >60 (60-); Glucose, Blood 248 mg/dL (70-99); Lactate Dehydrogenase (Ld),Bld 241 U/L (100-240); Magnesium, Blood 1.6 mg/dL (1.6-2.4); Phosphorus, Blood 2.8 mg/dL (2.5-4.9); Potassium, Blood 3.8 mmol/L (3.5-5.5); Sodium, Blood 139 mmol/L (136-145); Total Protein, Blood 6.3 g/dL (6.4-8.2); Uric Acid, Blood 4.3 mg/dL (3.5-7.2)
== END 2020-01-23 11:25 | disposition home or self-care (01) ==
LOC: ATC 01:59
PROVIDERS: Internal Medicine Hematology & Oncology
DX: C83.79 Burkitt lymphoma, extranodal and solid organ sites (principal); E86.0 Dehydration; Z87.891 Personal history of nicotine dependence
CPT/HCPCS: 36592; 80053; 83615; 83735; 84100; 84550; 85025

== ENCOUNTER 2020-01-25 00:04 | Day surgery (SDC) | payer BC ==
[2020-01-25 11:54] LABS: BASOPHILS ABSOLUTE AUTO 0.05 K/mm3 (0.00-0.23); BASOPHILS PERCENT AUTO 1 % (0-2); EOSINOPHILS ABSOLUTE AUTO 0.01 K/mm3 (0.00-0.68); EOSINOPHILS PERCENT AUTO 0 % (0-6); Hemoglobin 10.6 g/dL (13.5-17.5); IMMATURE GRAN ABSOLUTE AUTO 0.06 K/mm3 (0.00-0.10); IMMATURE GRAN PERCENT AUTO 1 % (0-1); LYMPHOCYTES ABSOLUTE AUTO 1.49 K/mm3 (0.84-5.20); LYMPHOCYTES PERCENT AUTO 16 % (21-46); MONOCYTES ABSOLUTE AUTO 1.25 K/mm3 (0.16-1.47); MONOCYTES PERCENT AUTO 13 % (4-13); Mean Corpuscular HGB 29.4 pg (26.0-34.0); Mean Corpuscular HGB Conc 32.1 g/dL (31.5-36.5); Mean Corpuscular Volume 92 fL (80-100); Mean Platelet Volume 9.3 fL (9.1-12.4); NEUTROPHILS ABSOLUTE AUTO 6.73 K/mm3 (1.96-9.15); NEUTROPHILS PERCENT AUTO 70 % (41-73); Platelet Count 376 K/mm3 (150-400); RDW Coefficient Variation 15.6 % (11.7-14.2); RDW Standard Deviation 47.8 fL (35.1-46.3); White Blood Cell Count 9.59 K/mm3 (4.00-11.30)
[2020-01-25 12:14] LABS: Alanine Aminotransfer (ALT/SGP 39 U/L (12-78); Albumin, Blood 2.8 g/dL (3.4-5.0); Albumin/Globulin Ratio 0.7 (0.8-1.8); Alk Phos 113 U/L (50-136); Anion Gap 7 mmol/L (6-16); Aspartate Aminotrans (AST/SGOT 29 U/L (12-37); Bilirubin, Total 0.4 mg/dL (0.1-1.0); Blood Urea Nitrogen 6 mg/dL (8-24); Bun/Creatinine Ratio 9.4 (12.0-20.0); CO2, Blood 28 mmol/L (21-32); Calcium, Blood 9.1 mg/dL (8.5-10.1); Chloride, Blood 101 mmol/L (98-108); Creatinine, Blood 0.64 mg/dL (0.60-1.20); Globulin, Blood 3.9 g/dL (2.2-4.0); Glomerular Filtration Rate >60 (60-); Glucose, Blood 202 mg/dL (70-99); Lactate Dehydrogenase (Ld),Bld 267 U/L (100-240); Magnesium, Blood 1.5 mg/dL (1.6-2.4); Phosphorus, Blood 3.5 mg/dL (2.5-4.9); Potassium, Blood 4.3 mmol/L (3.5-5.5); Sodium, Blood 136 mmol/L (136-145); Total Protein, Blood 6.7 g/dL (6.4-8.2); Uric Acid, Blood 4.9 mg/dL (3.5-7.2)
== END 2020-01-25 11:24 | disposition home or self-care (01) ==
LOC: ATC 00:04
PROVIDERS: Internal Medicine Hematology & Oncology
DX: C83.79 Burkitt lymphoma, extranodal and solid organ sites (principal); E86.0 Dehydration; E11.9 Type 2 diabetes mellitus without complications; Z87.891 Personal history of nicotine dependence
CPT/HCPCS: 36592; 80053; 83615; 83735; 84100; 84550; 85025

== ENCOUNTER 2020-01-28 01:08 | Day surgery (SDC) | payer BC ==
[2020-01-28 12:10] LABS: BASOPHILS ABSOLUTE AUTO 0.04 K/mm3 (0.00-0.23); BASOPHILS PERCENT AUTO 1 % (0-2); EOSINOPHILS ABSOLUTE AUTO 0.03 K/mm3 (0.00-0.68); EOSINOPHILS PERCENT AUTO 0 % (0-6); Hematocrit 30.8 % (37.0-53.0); IMMATURE GRAN ABSOLUTE AUTO 0.06 K/mm3 (0.00-0.10); IMMATURE GRAN PERCENT AUTO 1 % (0-1); LYMPHOCYTES PERCENT AUTO 18 % (21-46); MONOCYTES ABSOLUTE AUTO 1.05 K/mm3 (0.16-1.47); MONOCYTES PERCENT AUTO 16 % (4-13); Mean Corpuscular HGB 29.6 pg (26.0-34.0); Mean Corpuscular HGB Conc 32.5 g/dL (31.5-36.5); Mean Corpuscular Volume 91 fL (80-100); Mean Platelet Volume 8.8 fL (9.1-12.4); NEUTROPHILS ABSOLUTE AUTO 4.38 K/mm3 (1.96-9.15); NEUTROPHILS PERCENT AUTO 65 % (41-73); Platelet Count 335 K/mm3 (150-400); RDW Coefficient Variation 15.8 % (11.7-14.2); RDW Standard Deviation 50.3 fL (35.1-46.3); Red Blood Cell Count 3.38 M/mm3 (4.30-5.90); White Blood Cell Count 6.76 K/mm3 (4.00-11.30)
[2020-01-28 12:24] LABS: Alanine Aminotransfer (ALT/SGP 27 U/L (12-78); Albumin, Blood 2.6 g/dL (3.4-5.0); Albumin/Globulin Ratio 0.7 (0.8-1.8); Alk Phos 99 U/L (50-136); Anion Gap 6 mmol/L (6-16); Aspartate Aminotrans (AST/SGOT 22 U/L (12-37); Bilirubin, Total 0.3 mg/dL (0.1-1.0); Blood Urea Nitrogen 7 mg/dL (8-24); Bun/Creatinine Ratio 10.5 (12.0-20.0); CO2, Blood 26 mmol/L (21-32); Calcium, Blood 8.9 mg/dL (8.5-10.1); Chloride, Blood 103 mmol/L (98-108); Creatinine, Blood 0.67 mg/dL (0.60-1.20); Globulin, Blood 3.6 g/dL (2.2-4.0); Glomerular Filtration Rate >60 (60-); Glucose, Blood 307 mg/dL (70-99); Lactate Dehydrogenase (Ld),Bld 222 U/L (100-240); Magnesium, Blood 1.6 mg/dL (1.6-2.4); Phosphorus, Blood 3.5 mg/dL (2.5-4.9); Potassium, Blood 4.2 mmol/L (3.5-5.5); Sodium, Blood 135 mmol/L (136-145); Total Protein, Blood 6.2 g/dL (6.4-8.2); Uric Acid, Blood 5.8 mg/dL (3.5-7.2)
--- NOTE | 2020-01-28 13:18 | NUR ---
5CC OF BLOOD WITHDRAWN FROM [place]. LINE FLUSHED WITH 20CC OF NS AND NEW END CAP REPLACED.
== END 2020-01-28 13:05 | disposition home or self-care (01) ==
LOC: ATC 01:08
PROVIDERS: Internal Medicine Hematology & Oncology
DX: C83.79 Burkitt lymphoma, extranodal and solid organ sites (principal); Z87.891 Personal history of nicotine dependence
CPT/HCPCS: 80053; 83615; 83735; 84100; 84550; 85025; J2997; J7030

== ENCOUNTER 2020-01-30 00:19 | Day surgery (SDC) | payer BC ==
[2020-01-30 11:34] LABS: BASOPHILS ABSOLUTE AUTO 0.04 K/mm3 (0.00-0.23); BASOPHILS PERCENT AUTO 1 % (0-2); EOSINOPHILS ABSOLUTE AUTO 0.07 K/mm3 (0.00-0.68); EOSINOPHILS PERCENT AUTO 1 % (0-6); Hematocrit 32.6 % (37.0-53.0); Hemoglobin 10.4 g/dL (13.5-17.5); IMMATURE GRAN ABSOLUTE AUTO 0.05 K/mm3 (0.00-0.10); IMMATURE GRAN PERCENT AUTO 1 % (0-1); LYMPHOCYTES ABSOLUTE AUTO 1.55 K/mm3 (0.84-5.20); LYMPHOCYTES PERCENT AUTO 24 % (21-46); MONOCYTES ABSOLUTE AUTO 0.99 K/mm3 (0.16-1.47); MONOCYTES PERCENT AUTO 16 % (4-13); Mean Corpuscular HGB 29.7 pg (26.0-34.0); Mean Corpuscular HGB Conc 31.9 g/dL (31.5-36.5); Mean Corpuscular Volume 93 fL (80-100); Mean Platelet Volume 8.7 fL (9.1-12.4); NEUTROPHILS ABSOLUTE AUTO 3.69 K/mm3 (1.96-9.15); NEUTROPHILS PERCENT AUTO 58 % (41-73); Platelet Count 383 K/mm3 (150-400); RDW Standard Deviation 53.4 fL (35.1-46.3); White Blood Cell Count 6.39 K/mm3 (4.00-11.30)
[2020-01-30 11:55] LABS: Alanine Aminotransfer (ALT/SGP 24 U/L (12-78); Albumin, Blood 2.7 g/dL (3.4-5.0); Albumin/Globulin Ratio 0.7 (0.8-1.8); Alk Phos 102 U/L (50-136); Anion Gap 6 mmol/L (6-16); Aspartate Aminotrans (AST/SGOT 17 U/L (12-37); Bilirubin, Total 0.2 mg/dL (0.1-1.0); Blood Urea Nitrogen 6 mg/dL (8-24); Bun/Creatinine Ratio 9.6 (12.0-20.0); CO2, Blood 27 mmol/L (21-32); Calcium, Blood 8.9 mg/dL (8.5-10.1); Chloride, Blood 104 mmol/L (98-108); Creatinine, Blood 0.63 mg/dL (0.60-1.20); Globulin, Blood 3.7 g/dL (2.2-4.0); Glomerular Filtration Rate >60 (60-); Glucose, Blood 228 mg/dL (70-99); Lactate Dehydrogenase (Ld),Bld 178 U/L (100-240); Magnesium, Blood 1.5 mg/dL (1.6-2.4); Phosphorus, Blood 2.9 mg/dL (2.5-4.9); Potassium, Blood 4.1 mmol/L (3.5-5.5); Sodium, Blood 137 mmol/L (136-145); Total Protein, Blood 6.4 g/dL (6.4-8.2); Uric Acid, Blood 5.2 mg/dL (3.5-7.2)
== END 2020-01-30 11:15 | disposition home or self-care (01) ==
LOC: ATC 00:19
PROVIDERS: Internal Medicine Hematology & Oncology
DX: C83.79 Burkitt lymphoma, extranodal and solid organ sites (principal); E11.9 Type 2 diabetes mellitus without complications; E78.5 Hyperlipidemia, unspecified; Z87.891 Personal history of nicotine dependence; Z79.4 Long term (current) use of insulin; Z79.899 Other long term (current) drug therapy
CPT/HCPCS: 36592; 80053; 83615; 83735; 84100; 84550; 85025

== ENCOUNTER 2020-02-06 09:53 | Day surgery (SDC) | payer BC ==
--- NOTE | 2020-02-01 13:13 | NUR ---
PT WAS A NO SHOW FOR HIS APPOINTMENT TODAY.
[2020-02-06 16:37] LABS: BASOPHILS ABSOLUTE AUTO 0.01 K/mm3 (0.00-0.23); BASOPHILS PERCENT AUTO 1 % (0-2); EOSINOPHILS ABSOLUTE AUTO 0.08 K/mm3 (0.00-0.68); EOSINOPHILS PERCENT AUTO 4 % (0-6); Hemoglobin 9.9 g/dL (13.5-17.5); IMMATURE GRAN ABSOLUTE AUTO 0.01 K/mm3 (0.00-0.10); IMMATURE GRAN PERCENT AUTO 1 % (0-1); LYMPHOCYTES ABSOLUTE AUTO 0.42 K/mm3 (0.84-5.20); LYMPHOCYTES PERCENT AUTO 23 % (21-46); MONOCYTES ABSOLUTE AUTO 0.03 K/mm3 (0.16-1.47); MONOCYTES PERCENT AUTO 2 % (4-13); Mean Corpuscular HGB 29.5 pg (26.0-34.0); Mean Platelet Volume 8.6 fL (9.1-12.4); NEUTROPHILS ABSOLUTE AUTO 1.26 K/mm3 (1.96-9.15); NEUTROPHILS PERCENT AUTO 70 % (41-73); Platelet Count 326 K/mm3 (150-400); RDW Coefficient Variation 15.2 % (11.7-14.2); RDW Standard Deviation 49.3 fL (35.1-46.3); Red Blood Cell Count 3.36 M/mm3 (4.30-5.90); White Blood Cell Count 1.81 K/mm3 (4.00-11.30)
[2020-02-06 16:38] LABS: Mean Corpuscular Volume 89 fL (80-100)
[2020-02-06 17:03] LABS: Anion Gap 8 mmol/L (6-16); Blood Urea Nitrogen 10 mg/dL (8-24); Bun/Creatinine Ratio 18.9 (12.0-20.0); CO2, Blood 27 mmol/L (21-32); Chloride, Blood 105 mmol/L (98-108); Creatinine, Blood 0.53 mg/dL (0.60-1.20); Glomerular Filtration Rate >60 (60-); Glucose, Blood 133 mg/dL (70-99); Potassium, Blood 3.1 mmol/L (3.5-5.5); Sodium, Blood 140 mmol/L (136-145)
[2020-02-06 17:04] LABS: Alanine Aminotransfer (ALT/SGP 19 U/L (12-78); Albumin, Blood 2.9 g/dL (3.4-5.0); Albumin/Globulin Ratio 0.9 (0.8-1.8); Alk Phos 72 U/L (50-136); Aspartate Aminotrans (AST/SGOT 12 U/L (12-37); Calcium, Blood 8.8 mg/dL (8.5-10.1); Globulin, Blood 3.1 g/dL (2.2-4.0); Lactate Dehydrogenase (Ld),Bld 157 U/L (100-240); Magnesium, Blood 1.9 mg/dL (1.6-2.4)
== END 2020-02-06 16:05 | disposition home or self-care (01) ==
LOC: ATC 09:53
PROVIDERS: Internal Medicine Hematology & Oncology
DX: C83.70 Burkitt lymphoma, unspecified site (principal); E11.42 Type 2 diabetes mellitus with diabetic polyneuropathy; Z79.899 Other long term (current) drug therapy; Z79.4 Long term (current) use of insulin
CPT/HCPCS: 36592; 80053; 83615; 83735; 84100; 84550; 85025

== ENCOUNTER 2020-02-08 00:32 | Day surgery (SDC) | payer BC ==
[2020-02-08 11:59] LABS: Hematocrit 31.1 % (37.0-53.0); Hemoglobin 10.1 g/dL (13.5-17.5); Mean Corpuscular HGB 29.4 pg (26.0-34.0); Mean Corpuscular HGB Conc 32.5 g/dL (31.5-36.5); Mean Corpuscular Volume 91 fL (80-100); Mean Platelet Volume 8.8 fL (9.1-12.4); Platelet Count 252 K/mm3 (150-400); RDW Standard Deviation 49.8 fL (35.1-46.3); Red Blood Cell Count 3.43 M/mm3 (4.30-5.90); White Blood Cell Count 21.08 K/mm3 (4.00-11.30)
[2020-02-08 12:07] LABS: Albumin, Blood 2.8 g/dL (3.4-5.0); Albumin/Globulin Ratio 0.9 (0.8-1.8); Alk Phos 98 U/L (50-136); Anion Gap 6 mmol/L (6-16); Aspartate Aminotrans (AST/SGOT 9 U/L (12-37); Bilirubin, Total 0.6 mg/dL (0.1-1.0); Blood Urea Nitrogen 11 mg/dL (8-24); Bun/Creatinine Ratio 21.4 (12.0-20.0); CO2, Blood 29 mmol/L (21-32); Calcium, Blood 8.8 mg/dL (8.5-10.1); Chloride, Blood 105 mmol/L (98-108); Creatinine, Blood 0.52 mg/dL (0.60-1.20); Globulin, Blood 3.1 g/dL (2.2-4.0); Glomerular Filtration Rate >60 (60-); Glucose, Blood 235 mg/dL (70-99); Lactate Dehydrogenase (Ld),Bld 195 U/L (100-240); Magnesium, Blood 1.7 mg/dL (1.6-2.4); Phosphorus, Blood 3.6 mg/dL (2.5-4.9); Potassium, Blood 3.6 mmol/L (3.5-5.5); Sodium, Blood 140 mmol/L (136-145); Total Protein, Blood 5.9 g/dL (6.4-8.2); Uric Acid, Blood 3.5 mg/dL (3.5-7.2)
[2020-02-08 12:09] LABS: Alanine Aminotransfer (ALT/SGP 19 U/L (12-78)
[2020-02-08 12:50] LABS: BAND PERCENT MAN 1 % (0-8); BASOPHILS PERCENT MAN 0 % (0-2); EOSINOPHILS ABSOLUTE MAN 1.05 K/mm3 (0.00-0.68); EOSINOPHILS PERCENT MAN 5 % (0-6); LYMPHOCYTES ABSOLUTE MAN 0.42 K/mm3 (0.84-5.20); LYMPHOCYTES PERCENT MAN 2 % (21-46); MONOCYTES PERCENT MAN 0 % (4-13); SEG NEUTROPHILS PERCENT MAN 92 % (41-73); TOTAL CELLS COUNTED 100
== END 2020-02-08 17:43 | disposition home or self-care (01) ==
LOC: ATC 00:32
PROVIDERS: Internal Medicine Hematology & Oncology
DX: C83.79 Burkitt lymphoma, extranodal and solid organ sites (principal); E11.42 Type 2 diabetes mellitus with diabetic polyneuropathy; Z79.01 Long term (current) use of anticoagulants; Z79.4 Long term (current) use of insulin
CPT/HCPCS: 80053; 83615; 83735; 84100; 84550; 85025; J7030

== ENCOUNTER 2020-02-11 00:04 | Day surgery (SDC) | payer BC ==
[2020-02-11 12:06] LABS: Hematocrit 29.5 % (37.0-53.0); Hemoglobin 9.6 g/dL (13.5-17.5); Mean Corpuscular HGB Conc 32.5 g/dL (31.5-36.5); Mean Corpuscular Volume 92 fL (80-100); Mean Platelet Volume 9.3 fL (9.1-12.4); Platelet Count 96 K/mm3 (150-400); RDW Coefficient Variation 14.7 % (11.7-14.2); RDW Standard Deviation 49.9 fL (35.1-46.3); White Blood Cell Count 2.86 K/mm3 (4.00-11.30)
[2020-02-11 12:17] LABS: Alanine Aminotransfer (ALT/SGP 19 U/L (12-78); Albumin, Blood 3.1 g/dL (3.4-5.0); Alk Phos 104 U/L (50-136); Anion Gap 10 mmol/L (6-16); Aspartate Aminotrans (AST/SGOT 9 U/L (12-37); Bilirubin, Total 0.3 mg/dL (0.1-1.0); Blood Urea Nitrogen 7 mg/dL (8-24); Bun/Creatinine Ratio 14.3 (12.0-20.0); CO2, Blood 23 mmol/L (21-32); Calcium, Blood 8.4 mg/dL (8.5-10.1); Chloride, Blood 104 mmol/L (98-108); Creatinine, Blood 0.49 mg/dL (0.60-1.20); Glomerular Filtration Rate >60 (60-); Glucose, Blood 233 mg/dL (70-99); Lactate Dehydrogenase (Ld),Bld 184 U/L (100-240); Magnesium, Blood 1.5 mg/dL (1.6-2.4); Phosphorus, Blood 2.9 mg/dL (2.5-4.9); Potassium, Blood 3.6 mmol/L (3.5-5.5); Sodium, Blood 137 mmol/L (136-145); Total Protein, Blood 6.1 g/dL (6.4-8.2); Uric Acid, Blood 4.4 mg/dL (3.5-7.2)
[2020-02-11 12:32] LABS: BAND PERCENT MAN 6 % (0-8); BASOPHILS ABSOLUTE MAN 0.05 K/mm3 (0.00-0.23); BASOPHILS PERCENT MAN 2 % (0-2); EOSINOPHILS ABSOLUTE MAN 0.14 K/mm3 (0.00-0.68); EOSINOPHILS PERCENT MAN 5 % (0-6); LYMPHOCYTES ABSOLUTE MAN 0.28 K/mm3 (0.84-5.20); LYMPHOCYTES PERCENT MAN 10 % (21-46); MONOCYTES ABSOLUTE MAN 0.42 K/mm3 (0.16-1.47); MONOCYTES PERCENT MAN 15 % (4-13); NEUTROPHILS ABSOLUTE MAN 1.94 K/mm3 (1.96-9.15); SEG NEUTROPHILS PERCENT MAN 62 % (41-73); TOTAL CELLS COUNTED 100
== END 2020-02-11 11:43 | disposition home or self-care (01) ==
LOC: ATC 00:04
PROVIDERS: Internal Medicine Hematology & Oncology
DX: C83.79 Burkitt lymphoma, extranodal and solid organ sites (principal); G47.33 Obstructive sleep apnea (adult) (pediatric); E11.42 Type 2 diabetes mellitus with diabetic polyneuropathy; Z99.89 Dependence on other enabling machines and devices; Z79.4 Long term (current) use of insulin
CPT/HCPCS: 80053; 83615; 83735; 84100; 84550; 85025

== ENCOUNTER 2020-02-14 00:05 | Day surgery (SDC) | payer BC ==
[2020-02-14 11:54] LABS: BASOPHILS ABSOLUTE AUTO 0.09 K/mm3 (0.00-0.23); BASOPHILS PERCENT AUTO 2 % (0-2); Hematocrit 31.7 % (37.0-53.0); Hemoglobin 10.3 g/dL (13.5-17.5); LYMPHOCYTES PERCENT AUTO 17 % (21-46); MONOCYTES ABSOLUTE AUTO 1.01 K/mm3 (0.16-1.47); MONOCYTES PERCENT AUTO 22 % (4-13); Mean Corpuscular HGB 29.9 pg (26.0-34.0); Mean Corpuscular HGB Conc 32.5 g/dL (31.5-36.5); Mean Corpuscular Volume 92 fL (80-100); Mean Platelet Volume 10.9 fL (9.1-12.4); NRBC ABSOLUTE 0.11 K/mm3 (0.00-0.02); NRBC Auto 2.4 /100 WBC (0.0-0.2); Platelet Count 84 K/mm3 (150-400); RDW Coefficient Variation 15.9 % (11.7-14.2); RDW Standard Deviation 48.6 fL (35.1-46.3); Red Blood Cell Count 3.45 M/mm3 (4.30-5.90); White Blood Cell Count 4.64 K/mm3 (4.00-11.30)
[2020-02-14 11:57] LABS: EOSINOPHILS ABSOLUTE AUTO 0.07 K/mm3 (0.00-0.68); EOSINOPHILS PERCENT AUTO 2 % (0-6); IMMATURE GRAN ABSOLUTE AUTO 0.32 K/mm3 (0.00-0.10); IMMATURE GRAN PERCENT AUTO 7 % (0-1); NEUTROPHILS ABSOLUTE AUTO 2.35 K/mm3 (1.96-9.15); NEUTROPHILS PERCENT AUTO 51 % (41-73)
[2020-02-14 12:08] LABS: Alanine Aminotransfer (ALT/SGP 30 U/L (12-78); Albumin, Blood 3.6 g/dL (3.4-5.0); Albumin/Globulin Ratio 1.1 (0.8-1.8); Alk Phos 107 U/L (50-136); Anion Gap 8 mmol/L (6-16); Aspartate Aminotrans (AST/SGOT 18 U/L (12-37); Blood Urea Nitrogen 8 mg/dL (8-24); Bun/Creatinine Ratio 11.3 (12.0-20.0); CO2, Blood 25 mmol/L (21-32); Calcium, Blood 9.1 mg/dL (8.5-10.1); Chloride, Blood 101 mmol/L (98-108); Creatinine, Blood 0.71 mg/dL (0.60-1.20); Globulin, Blood 3.3 g/dL (2.2-4.0); Glomerular Filtration Rate >60 (60-); Glucose, Blood 236 mg/dL (70-99); Lactate Dehydrogenase (Ld),Bld 250 U/L (100-240); Magnesium, Blood 1.5 mg/dL (1.6-2.4); Phosphorus, Blood 3.6 mg/dL (2.5-4.9); Potassium, Blood 4.5 mmol/L (3.5-5.5); Sodium, Blood 134 mmol/L (136-145); Total Protein, Blood 6.9 g/dL (6.4-8.2)
[2020-02-14 12:19] LABS: Uric Acid, Blood 5.5 mg/dL (3.5-7.2)
== END 2020-02-14 11:48 | disposition home or self-care (01) ==
LOC: ATC 00:05
PROVIDERS: Internal Medicine Hematology & Oncology
DX: C83.79 Burkitt lymphoma, extranodal and solid organ sites (principal); E11.42 Type 2 diabetes mellitus with diabetic polyneuropathy; G47.33 Obstructive sleep apnea (adult) (pediatric); Z99.89 Dependence on other enabling machines and devices; Z79.899 Other long term (current) drug therapy; Z79.4 Long term (current) use of insulin
CPT/HCPCS: 36592; 80053; 83615; 83735; 84100; 84550; 85025

== ENCOUNTER 2020-02-21 00:11 | Day surgery (SDC) | payer OTHER, BC ==
[2020-02-21 11:16] LABS: BASOPHILS ABSOLUTE AUTO 0.03 K/mm3 (0.00-0.23); BASOPHILS PERCENT AUTO 0 % (0-2); EOSINOPHILS ABSOLUTE AUTO 0.06 K/mm3 (0.00-0.68); EOSINOPHILS PERCENT AUTO 1 % (0-6); Hematocrit 33.2 % (37.0-53.0); Hemoglobin 10.7 g/dL (13.5-17.5); IMMATURE GRAN ABSOLUTE AUTO 0.07 K/mm3 (0.00-0.10); IMMATURE GRAN PERCENT AUTO 1 % (0-1); LYMPHOCYTES ABSOLUTE AUTO 1.16 K/mm3 (0.84-5.20); LYMPHOCYTES PERCENT AUTO 16 % (21-46); MONOCYTES PERCENT AUTO 10 % (4-13); Mean Corpuscular HGB Conc 32.2 g/dL (31.5-36.5); Mean Platelet Volume 9.8 fL (9.1-12.4); NEUTROPHILS ABSOLUTE AUTO 5.25 K/mm3 (1.96-9.15); NEUTROPHILS PERCENT AUTO 72 % (41-73); Platelet Count 167 K/mm3 (150-400); RDW Coefficient Variation 17.6 % (11.7-14.2); RDW Standard Deviation 56.8 fL (35.1-46.3); Red Blood Cell Count 3.57 M/mm3 (4.30-5.90); White Blood Cell Count 7.27 K/mm3 (4.00-11.30)
[2020-02-21 11:17] LABS: Mean Corpuscular Volume 93 fL (80-100)
[2020-02-21 11:27] LABS: Alanine Aminotransfer (ALT/SGP 35 U/L (12-78); Albumin, Blood 3.4 g/dL (3.4-5.0); Alk Phos 94 U/L (50-136); Anion Gap 9 mmol/L (6-16); Aspartate Aminotrans (AST/SGOT 17 U/L (12-37); Bilirubin, Total 0.5 mg/dL (0.1-1.0); Blood Urea Nitrogen 12 mg/dL (8-24); Bun/Creatinine Ratio 19.9 (12.0-20.0); CO2, Blood 25 mmol/L (21-32); Calcium, Blood 8.9 mg/dL (8.5-10.1); Chloride, Blood 105 mmol/L (98-108); Globulin, Blood 3.3 g/dL (2.2-4.0); Glomerular Filtration Rate >60 (60-); Glucose, Blood 213 mg/dL (70-99); Lactate Dehydrogenase (Ld),Bld 212 U/L (100-240); Magnesium, Blood 1.8 mg/dL (1.6-2.4); Phosphorus, Blood 3.7 mg/dL (2.5-4.9); Potassium, Blood 4.1 mmol/L (3.5-5.5); Sodium, Blood 139 mmol/L (136-145); Total Protein, Blood 6.7 g/dL (6.4-8.2); Uric Acid, Blood 5.4 mg/dL (3.5-7.2)
== END 2020-02-21 12:02 | disposition home or self-care (01) ==
LOC: ATC 00:11
PROVIDERS: Internal Medicine Hematology & Oncology
DX: C83.70 Burkitt lymphoma, unspecified site (principal); E11.42 Type 2 diabetes mellitus with diabetic polyneuropathy; Z79.4 Long term (current) use of insulin
CPT/HCPCS: 80053; 83615; 83735; 84100; 84550; 85025; 96360; J7030

== ENCOUNTER 2020-02-25 00:18 | Day surgery (SDC) | payer BC ==
[2020-02-25 11:57] LABS: BASOPHILS ABSOLUTE AUTO 0.02 K/mm3 (0.00-0.23); BASOPHILS PERCENT AUTO 0 % (0-2); EOSINOPHILS ABSOLUTE AUTO 0.04 K/mm3 (0.00-0.68); EOSINOPHILS PERCENT AUTO 1 % (0-6); Hematocrit 30.3 % (37.0-53.0); Hemoglobin 10.1 g/dL (13.5-17.5); IMMATURE GRAN ABSOLUTE AUTO 0.05 K/mm3 (0.00-0.10); IMMATURE GRAN PERCENT AUTO 1 % (0-1); LYMPHOCYTES ABSOLUTE AUTO 0.97 K/mm3 (0.84-5.20); LYMPHOCYTES PERCENT AUTO 16 % (21-46); MONOCYTES ABSOLUTE AUTO 0.72 K/mm3 (0.16-1.47); MONOCYTES PERCENT AUTO 12 % (4-13); Mean Corpuscular HGB 31.1 pg (26.0-34.0); Mean Corpuscular HGB Conc 33.3 g/dL (31.5-36.5); Mean Corpuscular Volume 93 fL (80-100); Mean Platelet Volume 9.4 fL (9.1-12.4); NEUTROPHILS ABSOLUTE AUTO 4.43 K/mm3 (1.96-9.15); NEUTROPHILS PERCENT AUTO 71 % (41-73); Platelet Count 141 K/mm3 (150-400); RDW Coefficient Variation 18.5 % (11.7-14.2); RDW Standard Deviation 62.1 fL (35.1-46.3); Red Blood Cell Count 3.25 M/mm3 (4.30-5.90); White Blood Cell Count 6.23 K/mm3 (4.00-11.30)
[2020-02-25 12:18] LABS: Alanine Aminotransfer (ALT/SGP 28 U/L (12-78); Albumin, Blood 3.4 g/dL (3.4-5.0); Albumin/Globulin Ratio 1.2 (0.8-1.8); Alk Phos 90 U/L (50-136); Anion Gap 8 mmol/L (6-16); Aspartate Aminotrans (AST/SGOT 15 U/L (12-37); Bilirubin, Total 0.5 mg/dL (0.1-1.0); Blood Urea Nitrogen 9 mg/dL (8-24); Bun/Creatinine Ratio 17.4 (12.0-20.0); CO2, Blood 25 mmol/L (21-32); Calcium, Blood 8.6 mg/dL (8.5-10.1); Chloride, Blood 105 mmol/L (98-108); Creatinine, Blood 0.52 mg/dL (0.60-1.20); Globulin, Blood 2.8 g/dL (2.2-4.0); Glomerular Filtration Rate >60 (60-); Glucose, Blood 281 mg/dL (70-99); Lactate Dehydrogenase (Ld),Bld 181 U/L (100-240); Magnesium, Blood 1.7 mg/dL (1.6-2.4); Phosphorus, Blood 2.9 mg/dL (2.5-4.9); Potassium, Blood 3.8 mmol/L (3.5-5.5); Sodium, Blood 138 mmol/L (136-145); Total Protein, Blood 6.2 g/dL (6.4-8.2); Uric Acid, Blood 5.5 mg/dL (3.5-7.2)
== END 2020-02-25 11:31 | disposition home or self-care (01) ==
LOC: ATC 00:18
PROVIDERS: Internal Medicine Hematology & Oncology
DX: C83.79 Burkitt lymphoma, extranodal and solid organ sites (principal); E11.42 Type 2 diabetes mellitus with diabetic polyneuropathy; Z79.01 Long term (current) use of anticoagulants; G47.33 Obstructive sleep apnea (adult) (pediatric); Z79.899 Other long term (current) drug therapy; Z79.4 Long term (current) use of insulin
CPT/HCPCS: 80053; 83615; 83735; 84100; 84550; 85025

== ENCOUNTER 2020-02-28 00:10 | Day surgery (SDC) | payer BC ==
[2020-02-28 11:53] LABS: BASOPHILS ABSOLUTE AUTO 0.02 K/mm3 (0.00-0.23); BASOPHILS PERCENT AUTO 1 % (0-2); EOSINOPHILS ABSOLUTE AUTO 0.03 K/mm3 (0.00-0.68); EOSINOPHILS PERCENT AUTO 1 % (0-6); Hematocrit 31.6 % (37.0-53.0); Hemoglobin 10.4 g/dL (13.5-17.5); IMMATURE GRAN ABSOLUTE AUTO 0.03 K/mm3 (0.00-0.10); IMMATURE GRAN PERCENT AUTO 1 % (0-1); LYMPHOCYTES ABSOLUTE AUTO 1.13 K/mm3 (0.84-5.20); LYMPHOCYTES PERCENT AUTO 30 % (21-46); MONOCYTES ABSOLUTE AUTO 0.67 K/mm3 (0.16-1.47); MONOCYTES PERCENT AUTO 18 % (4-13); Mean Corpuscular HGB 31.6 pg (26.0-34.0); Mean Corpuscular HGB Conc 32.9 g/dL (31.5-36.5); Mean Platelet Volume 9.4 fL (9.1-12.4); NEUTROPHILS ABSOLUTE AUTO 1.91 K/mm3 (1.96-9.15); NEUTROPHILS PERCENT AUTO 50 % (41-73); Platelet Count 135 K/mm3 (150-400); RDW Coefficient Variation 19.2 % (11.7-14.2); RDW Standard Deviation 65.1 fL (35.1-46.3); Red Blood Cell Count 3.29 M/mm3 (4.30-5.90); White Blood Cell Count 3.79 K/mm3 (4.00-11.30)
[2020-02-28 11:55] LABS: Mean Corpuscular Volume 96 fL (80-100)
[2020-02-28 12:14] LABS: Alanine Aminotransfer (ALT/SGP 34 U/L (12-78); Albumin, Blood 3.4 g/dL (3.4-5.0); Albumin/Globulin Ratio 1.2 (0.8-1.8); Alk Phos 87 U/L (50-136); Anion Gap 12 mmol/L (6-16); Aspartate Aminotrans (AST/SGOT 15 U/L (12-37); Bilirubin, Total 0.4 mg/dL (0.1-1.0); Blood Urea Nitrogen 9 mg/dL (8-24); Bun/Creatinine Ratio 16.9 (12.0-20.0); CO2, Blood 20 mmol/L (21-32); Calcium, Blood 8.5 mg/dL (8.5-10.1); Chloride, Blood 108 mmol/L (98-108); Creatinine, Blood 0.53 mg/dL (0.60-1.20); Globulin, Blood 2.9 g/dL (2.2-4.0); Glomerular Filtration Rate >60 (60-); Glucose, Blood 280 mg/dL (70-99); Lactate Dehydrogenase (Ld),Bld 189 U/L (100-240); Magnesium, Blood 1.8 mg/dL (1.6-2.4); Phosphorus, Blood 3.5 mg/dL (2.5-4.9); Potassium, Blood 3.8 mmol/L (3.5-5.5); Sodium, Blood 140 mmol/L (136-145); Total Protein, Blood 6.3 g/dL (6.4-8.2); Uric Acid, Blood 4.9 mg/dL (3.5-7.2)
== END 2020-02-28 12:15 | disposition home or self-care (01) ==
LOC: ATC 00:10
PROVIDERS: Internal Medicine Hematology & Oncology
DX: C83.79 Burkitt lymphoma, extranodal and solid organ sites (principal); E86.0 Dehydration; E11.42 Type 2 diabetes mellitus with diabetic polyneuropathy; G47.33 Obstructive sleep apnea (adult) (pediatric); Z79.4 Long term (current) use of insulin
CPT/HCPCS: 80053; 83615; 83735; 84100; 84550; 85025; 96360; J7030

== ENCOUNTER 2020-03-13 00:10 | Day surgery (SDC) | payer BC, OTHER ==
[2020-03-13 12:04] LABS: Hematocrit 32.8 % (37.0-53.0); Mean Corpuscular HGB Conc 33.5 g/dL (31.5-36.5); Mean Corpuscular Volume 99 fL (80-100); Mean Platelet Volume 9.6 fL (9.1-12.4); Platelet Count 139 K/mm3 (150-400); RDW Coefficient Variation 17.9 % (11.7-14.2); RDW Standard Deviation 64.2 fL (35.1-46.3); Red Blood Cell Count 3.33 M/mm3 (4.30-5.90); White Blood Cell Count 20.13 K/mm3 (4.00-11.30)
[2020-03-13 12:25] LABS: Alanine Aminotransfer (ALT/SGP 32 U/L (12-78); Albumin, Blood 3.5 g/dL (3.4-5.0); Albumin/Globulin Ratio 1.2 (0.8-1.8); Alk Phos 86 U/L (50-136); Anion Gap 9 mmol/L (6-16); Aspartate Aminotrans (AST/SGOT 10 U/L (12-37); Bilirubin, Total 1.6 mg/dL (0.1-1.0); Blood Urea Nitrogen 14 mg/dL (8-24); Bun/Creatinine Ratio 23.3 (12.0-20.0); CO2, Blood 24 mmol/L (21-32); Calcium, Blood 9.1 mg/dL (8.5-10.1); Chloride, Blood 104 mmol/L (98-108); Glomerular Filtration Rate >60 (60-); Glucose, Blood 188 mg/dL (70-99); Lactate Dehydrogenase (Ld),Bld 205 U/L (100-240); Magnesium, Blood 1.9 mg/dL (1.6-2.4); Phosphorus, Blood 3.2 mg/dL (2.5-4.9); Sodium, Blood 137 mmol/L (136-145); Total Protein, Blood 6.5 g/dL (6.4-8.2); Uric Acid, Blood 4.3 mg/dL (3.5-7.2)
[2020-03-13 12:37] LABS: BAND PERCENT MAN 7 % (0-8); BASOPHILS PERCENT MAN 0 % (0-2); EOSINOPHILS PERCENT MAN 2 % (0-6); LYMPHOCYTES ABSOLUTE MAN 1.61 K/mm3 (0.84-5.20); LYMPHOCYTES PERCENT MAN 8 % (21-46); METAMYELOCYTE PERCENT MAN 3 % (0-0); MONOCYTES PERCENT MAN 0 % (4-13); NEUTROPHILS ABSOLUTE MAN 17.51 K/mm3 (1.96-9.15); SEG NEUTROPHILS PERCENT MAN 80 % (41-73); TOTAL CELLS COUNTED 100
== END 2020-03-13 11:29 | disposition home or self-care (01) ==
LOC: ATC 00:10
PROVIDERS: Internal Medicine Hematology & Oncology
DX: C83.71 Burkitt lymphoma, lymph nodes of head, face, and neck (principal); E11.42 Type 2 diabetes mellitus with diabetic polyneuropathy; G47.33 Obstructive sleep apnea (adult) (pediatric); Z79.4 Long term (current) use of insulin
CPT/HCPCS: 36592; 80053; 83615; 83735; 84100; 84550; 85025

== ENCOUNTER 2020-03-17 00:23 | Day surgery (SDC) | payer BC, OTHER ==
[2020-03-17 11:36] LABS: Hematocrit 28.3 % (37.0-53.0); Hemoglobin 9.6 g/dL (13.5-17.5); Mean Corpuscular HGB 32.5 pg (26.0-34.0); Mean Corpuscular HGB Conc 33.9 g/dL (31.5-36.5); Mean Platelet Volume 12.5 fL (9.1-12.4); RDW Coefficient Variation 16.6 % (11.7-14.2); RDW Standard Deviation 58.4 fL (35.1-46.3); Red Blood Cell Count 2.95 M/mm3 (4.30-5.90)
[2020-03-17 11:55] LABS: Alanine Aminotransfer (ALT/SGP 25 U/L (12-78); Albumin, Blood 3.6 g/dL (3.4-5.0); Albumin/Globulin Ratio 1.2 (0.8-1.8); Alk Phos 96 U/L (50-136); Anion Gap 7 mmol/L (6-16); Aspartate Aminotrans (AST/SGOT 12 U/L (12-37); Bilirubin, Total 1.3 mg/dL (0.1-1.0); Blood Urea Nitrogen 9 mg/dL (8-24); Bun/Creatinine Ratio 15.5 (12.0-20.0); CO2, Blood 22 mmol/L (21-32); Calcium, Blood 8.9 mg/dL (8.5-10.1); Chloride, Blood 104 mmol/L (98-108); Creatinine, Blood 0.58 mg/dL (0.60-1.20); Globulin, Blood 3.1 g/dL (2.2-4.0); Glomerular Filtration Rate >60 (60-); Glucose, Blood 209 mg/dL (70-99); Lactate Dehydrogenase (Ld),Bld 153 U/L (100-240); Magnesium, Blood 1.5 mg/dL (1.6-2.4); Phosphorus, Blood 2.6 mg/dL (2.5-4.9); Sodium, Blood 133 mmol/L (136-145); Total Protein, Blood 6.7 g/dL (6.4-8.2); Uric Acid, Blood 4.5 mg/dL (3.5-7.2)
[2020-03-17 12:09] LABS: BASOPHILS ABSOLUTE AUTO 0.01 K/mm3 (0.00-0.23); BASOPHILS PERCENT AUTO 1 % (0-2); EOSINOPHILS ABSOLUTE AUTO 0.03 K/mm3 (0.00-0.68); EOSINOPHILS PERCENT AUTO 4 % (0-6); IMMATURE GRAN PERCENT AUTO 12 % (0-1); LYMPHOCYTES ABSOLUTE AUTO 0.42 K/mm3 (0.84-5.20); LYMPHOCYTES PERCENT AUTO 51 % (21-46); MONOCYTES ABSOLUTE AUTO 0.12 K/mm3 (0.16-1.47); MONOCYTES PERCENT AUTO 15 % (4-13); Mean Corpuscular Volume 96 fL (80-100); NEUTROPHILS ABSOLUTE AUTO 0.15 K/mm3 (1.96-9.15); NEUTROPHILS PERCENT AUTO 18 % (41-73)
[2020-03-17 12:11] LABS: White Blood Cell Count 0.83 K/mm3 (4.00-11.30)
[2020-03-17 12:12] LABS: Platelet Count 26 K/mm3 (150-400)
== END 2020-03-17 12:30 | disposition home or self-care (01) ==
LOC: ATC 00:23
PROVIDERS: Internal Medicine Hematology & Oncology
DX: E86.0 Dehydration (principal); C83.70 Burkitt lymphoma, unspecified site
CPT/HCPCS: 80053; 83615; 83735; 84100; 84550; 85025; J7030

== ENCOUNTER 2020-03-20 00:07 | Day surgery (SDC) | payer BC ==
[2020-03-20 11:01] LABS: Hematocrit 29.9 % (37.0-53.0); Hemoglobin 9.9 g/dL (13.5-17.5); Mean Corpuscular HGB 32.6 pg (26.0-34.0); Mean Corpuscular HGB Conc 33.1 g/dL (31.5-36.5); Mean Corpuscular Volume 98 fL (80-100); Mean Platelet Volume 11.7 fL (9.1-12.4); NRBC ABSOLUTE 0.02 K/mm3 (0.00-0.02); NRBC Auto 0.7 /100 WBC (0.0-0.2); RDW Coefficient Variation 16.6 % (11.7-14.2); RDW Standard Deviation 58.4 fL (35.1-46.3); Red Blood Cell Count 3.04 M/mm3 (4.30-5.90); White Blood Cell Count 3.07 K/mm3 (4.00-11.30)
[2020-03-20 11:21] LABS: Magnesium, Blood 1.6 mg/dL (1.6-2.4); Phosphorus, Blood 3.3 mg/dL (2.5-4.9); Uric Acid, Blood 5.5 mg/dL (3.5-7.2)
[2020-03-20 11:42] LABS: BAND PERCENT MAN 5 % (0-8); BASOPHILS PERCENT MAN 0 % (0-2); EOSINOPHILS PERCENT MAN 0 % (0-6); LYMPHOCYTES ABSOLUTE MAN 0.52 K/mm3 (0.84-5.20); LYMPHOCYTES PERCENT MAN 17 % (21-46); MONOCYTES ABSOLUTE MAN 0.33 K/mm3 (0.16-1.47); MONOCYTES PERCENT MAN 11 % (4-13); MYELOCYTE ABSOLUTE MAN 0.09 K/mm3 (0.00-0.00); MYELOCYTE PERCENT MAN 3 % (0-0); NEUTROPHILS ABSOLUTE MAN 2.11 K/mm3 (1.96-9.15); SEG NEUTROPHILS PERCENT MAN 64 % (41-73); TOTAL CELLS COUNTED 100
[2020-03-20 11:43] LABS: Platelet Count 36 K/mm3 (150-400)
[2020-03-20 13:30] LABS: Alanine Aminotransfer (ALT/SGP 21 U/L (12-78); Albumin, Blood 3.6 g/dL (3.4-5.0); Albumin/Globulin Ratio 1.2 (0.8-1.8); Alk Phos 90 U/L (50-136); Anion Gap 8 mmol/L (6-16); Aspartate Aminotrans (AST/SGOT 10 U/L (12-37); Bilirubin, Total 0.4 mg/dL (0.1-1.0); Blood Urea Nitrogen 8 mg/dL (8-24); Bun/Creatinine Ratio 12.4 (12.0-20.0); CO2, Blood 24 mmol/L (21-32); Calcium, Blood 8.8 mg/dL (8.5-10.1); Chloride, Blood 108 mmol/L (98-108); Creatinine, Blood 0.64 mg/dL (0.60-1.20); Glomerular Filtration Rate >60 (60-); Glucose, Blood 222 mg/dL (70-99); Potassium, Blood 3.4 mmol/L (3.5-5.5); Sodium, Blood 140 mmol/L (136-145); Total Protein, Blood 6.6 g/dL (6.4-8.2)
== END 2020-03-20 11:58 | disposition home or self-care (01) ==
LOC: ATC 00:07
PROVIDERS: Internal Medicine Hematology & Oncology
DX: C83.79 Burkitt lymphoma, extranodal and solid organ sites (principal); E11.42 Type 2 diabetes mellitus with diabetic polyneuropathy; G47.33 Obstructive sleep apnea (adult) (pediatric); I25.10 Atherosclerotic heart disease of native coronary artery without angina pectoris; Z79.4 Long term (current) use of insulin
CPT/HCPCS: 80053; 83615; 83735; 84100; 84550; 85025; 96360; J7030

== ENCOUNTER 2020-03-24 00:22 | Day surgery (SDC) | payer OTHER, BC ==
[2020-03-24 11:42] LABS: Hematocrit 30.7 % (37.0-53.0); Hemoglobin 10.1 g/dL (13.5-17.5); Mean Corpuscular HGB 32.5 pg (26.0-34.0); Mean Corpuscular HGB Conc 32.9 g/dL (31.5-36.5); Mean Corpuscular Volume 99 fL (80-100); Mean Platelet Volume 10.8 fL (9.1-12.4); Platelet Count 92 K/mm3 (150-400); RDW Coefficient Variation 17.1 % (11.7-14.2); RDW Standard Deviation 59.2 fL (35.1-46.3); Red Blood Cell Count 3.11 M/mm3 (4.30-5.90); White Blood Cell Count 4.53 K/mm3 (4.00-11.30)
[2020-03-24 11:44] LABS: NRBC ABSOLUTE 0.03 K/mm3 (0.00-0.02); NRBC Auto 0.7 /100 WBC (0.0-0.2)
[2020-03-24 12:04] LABS: Alanine Aminotransfer (ALT/SGP 22 U/L (12-78); Albumin, Blood 3.4 g/dL (3.4-5.0); Albumin/Globulin Ratio 1.1 (0.8-1.8); Alk Phos 97 U/L (50-136); Anion Gap 6 mmol/L (6-16); Aspartate Aminotrans (AST/SGOT 10 U/L (12-37); Bilirubin, Total 0.3 mg/dL (0.1-1.0); Blood Urea Nitrogen 10 mg/dL (8-24); Bun/Creatinine Ratio 16.5 (12.0-20.0); CO2, Blood 25 mmol/L (21-32); Calcium, Blood 8.8 mg/dL (8.5-10.1); Chloride, Blood 110 mmol/L (98-108); Creatinine, Blood 0.61 mg/dL (0.60-1.20); Globulin, Blood 3.1 g/dL (2.2-4.0); Glomerular Filtration Rate >60 (60-); Glucose, Blood 230 mg/dL (70-99); Lactate Dehydrogenase (Ld),Bld 193 U/L (100-240); Magnesium, Blood 1.7 mg/dL (1.6-2.4); Phosphorus, Blood 3.6 mg/dL (2.5-4.9); Sodium, Blood 141 mmol/L (136-145); Total Protein, Blood 6.5 g/dL (6.4-8.2); Uric Acid, Blood 5.7 mg/dL (3.5-7.2)
== END 2020-03-24 11:25 | disposition home or self-care (01) ==
LOC: ATC 00:22
PROVIDERS: Internal Medicine Hematology & Oncology
DX: E86.0 Dehydration (principal); C83.19 Mantle cell lymphoma, extranodal and solid organ sites
CPT/HCPCS: 36592; 80053; 83615; 83735; 84100; 84550; 85025

== ENCOUNTER 2020-04-03 08:31 | Day surgery (SDC) | payer OTHER, BC ==
[2020-04-03 11:42] LABS: Hematocrit 27.7 % (37.0-53.0); Hemoglobin 9.3 g/dL (13.5-17.5); Mean Corpuscular HGB 33.1 pg (26.0-34.0); Mean Corpuscular HGB Conc 33.6 g/dL (31.5-36.5); Mean Corpuscular Volume 99 fL (80-100); Mean Platelet Volume 9.6 fL (9.1-12.4); Platelet Count 123 K/mm3 (150-400); RDW Coefficient Variation 16.1 % (11.7-14.2); RDW Standard Deviation 57.6 fL (35.1-46.3); Red Blood Cell Count 2.81 M/mm3 (4.30-5.90); White Blood Cell Count 8.14 K/mm3 (4.00-11.30)
[2020-04-03 12:03] LABS: Alanine Aminotransfer (ALT/SGP 26 U/L (12-78); Albumin, Blood 2.8 g/dL (3.4-5.0); Alk Phos 67 U/L (50-136); Anion Gap 4 mmol/L (6-16); Aspartate Aminotrans (AST/SGOT 10 U/L (12-37); Bilirubin, Total 0.8 mg/dL (0.1-1.0); Blood Urea Nitrogen 12 mg/dL (8-24); Bun/Creatinine Ratio 21.8 (12.0-20.0); CO2, Blood 28 mmol/L (21-32); Calcium, Blood 8.3 mg/dL (8.5-10.1); Chloride, Blood 109 mmol/L (98-108); Creatinine, Blood 0.55 mg/dL (0.60-1.20); Globulin, Blood 2.7 g/dL (2.2-4.0); Glomerular Filtration Rate >60 (60-); Glucose, Blood 226 mg/dL (70-99); Lactate Dehydrogenase (Ld),Bld 191 U/L (100-240); Magnesium, Blood 1.7 mg/dL (1.6-2.4); Phosphorus, Blood 2.6 mg/dL (2.5-4.9); Potassium, Blood 3.6 mmol/L (3.5-5.5); Sodium, Blood 141 mmol/L (136-145); Total Protein, Blood 5.5 g/dL (6.4-8.2)
[2020-04-03 12:09] LABS: BAND PERCENT MAN 5 % (0-8); BASOPHILS PERCENT MAN 0 % (0-2); EOSINOPHILS PERCENT MAN 0 % (0-6); LYMPHOCYTES ABSOLUTE MAN 0.81 K/mm3 (0.84-5.20); LYMPHOCYTES PERCENT MAN 10 % (21-46); MONOCYTES ABSOLUTE MAN 0.08 K/mm3 (0.16-1.47); MONOCYTES PERCENT MAN 1 % (4-13); NEUTROPHILS ABSOLUTE MAN 7.24 K/mm3 (1.96-9.15); SEG NEUTROPHILS PERCENT MAN 84 % (41-73); TOTAL CELLS COUNTED 100
== END 2020-04-03 11:34 | disposition home or self-care (01) ==
LOC: ATC 08:31
PROVIDERS: Internal Medicine Hematology & Oncology
DX: C83.79 Burkitt lymphoma, extranodal and solid organ sites (principal); E11.42 Type 2 diabetes mellitus with diabetic polyneuropathy; E11.65 Type 2 diabetes mellitus with hyperglycemia; Z79.01 Long term (current) use of anticoagulants; G47.33 Obstructive sleep apnea (adult) (pediatric); Z79.4 Long term (current) use of insulin; Z79.899 Other long term (current) drug therapy
CPT/HCPCS: 36592; 80053; 83615; 83735; 84100; 84550; 85025

== ENCOUNTER 2021-09-14 02:48 | Emergency (ER) | payer OTHER ==
[~2021-09-14] VITALS: Ht 180.3 cm; Wt 104.3 kg
[~2021-09-14 02:48] MED LIST changes: -NOVOLOG FL100 UNIT/1 SC; +NOVOLOG FL100 UNIT/3 SC
[2021-09-14 04:56] LABS: BASOPHILS ABSOLUTE AUTO 0.02 K/mm3 (0.00-0.23); BASOPHILS PERCENT AUTO 0 % (0-2); EOSINOPHILS PERCENT AUTO 0 % (0-6); Hematocrit 44.5 % (37.0-53.0); Hemoglobin 15.4 g/dL (13.5-17.5); IMMATURE GRAN ABSOLUTE AUTO 0.02 K/mm3 (0.00-0.10); IMMATURE GRAN PERCENT AUTO 0 % (0-1); LYMPHOCYTES ABSOLUTE AUTO 1.49 K/mm3 (0.84-5.20); LYMPHOCYTES PERCENT AUTO 25 % (21-46); MONOCYTES ABSOLUTE AUTO 0.77 K/mm3 (0.16-1.47); MONOCYTES PERCENT AUTO 13 % (4-13); Mean Corpuscular HGB 31.4 pg (26.0-34.0); Mean Corpuscular HGB Conc 34.6 g/dL (31.5-36.5); Mean Corpuscular Volume 91 fL (80-100); NEUTROPHILS ABSOLUTE AUTO 3.59 K/mm3 (1.96-9.15); NEUTROPHILS PERCENT AUTO 61 % (41-73); Platelet Count 151 K/mm3 (150-400); RDW Coefficient Variation 12.8 % (11.7-14.2); RDW Standard Deviation 42.5 fL (35.1-46.3); White Blood Cell Count 5.89 K/mm3 (4.00-11.30)
[2021-09-14 05:17] LABS: Anion Gap 8 mmol/L (6-16); Blood Urea Nitrogen 14 mg/dL (8-24); Bun/Creatinine Ratio 17.8 (12.0-20.0); CO2, Blood 27 mmol/L (21-32); Chloride, Blood 103 mmol/L (98-108); Creatinine, Blood 0.79 mg/dL (0.60-1.20); Glomerular Filtration Rate >60 (60-); Glucose, Blood 233 mg/dL (70-99); Potassium, Blood 3.9 mmol/L (3.5-5.5); Sodium, Blood 138 mmol/L (136-145)
[2021-09-14 05:32] LABS: Influenza A, PCR NEGATIVE (NEGATIVE); Influenza B, PCR NEGATIVE (NEGATIVE); Resp Syncytial Virus, PCR NEGATIVE (NEGATIVE); SARS-Cov-2 (COVID-19) PCR, MMC NEGATIVE (NEGATIVE)
[2021-09-14] MEDS ORDERED: AMOCLA875 PO (06:59)
[2021-09-14] MEDS ORDERED: AZIT250 PO (06:59)
== END 2021-09-14 07:45 | disposition home or self-care (01) ==
LOC: ER 02:48
PROVIDERS: Student in an Organized Health Care Education/Training Program
DX: J18.9 Pneumonia, unspecified organism (principal); R91.8 Other nonspecific abnormal finding of lung field; Z20.822 Contact with and (suspected) exposure to COVID-19; E11.9 Type 2 diabetes mellitus without complications; G47.33 Obstructive sleep apnea (adult) (pediatric); E78.5 Hyperlipidemia, unspecified; I10 Essential (primary) hypertension; E11.40 Type 2 diabetes mellitus with diabetic neuropathy, unspecified; Z87.891 Personal history of nicotine dependence; Z79.4 Long term (current) use of insulin; Z79.899 Other long term (current) drug therapy
CPT/HCPCS: 0241U; 71045; 80048; 85025; 96374; 99284-25; A9270; J1885

== ENCOUNTER 2021-09-14 20:56 | Inpatient (IN) | payer OTHER ==
[~2021-09-14] VITALS: Ht 180.3 cm; Wt 104.3 kg
[~2021-09-14 20:56] MED LIST changes: +AMOCLA875 PO; +AZIT250 PO
[2021-09-14 21:45] LABS: BASOPHILS ABSOLUTE AUTO 0.03 K/mm3 (0.00-0.23); BASOPHILS PERCENT AUTO 0 % (0-2); EOSINOPHILS ABSOLUTE AUTO 0.23 K/mm3 (0.00-0.68); EOSINOPHILS PERCENT AUTO 3 % (0-6); Hematocrit 46.9 % (37.0-53.0); Hemoglobin 16.6 g/dL (13.5-17.5); IMMATURE GRAN ABSOLUTE AUTO 0.08 K/mm3 (0.00-0.10); IMMATURE GRAN PERCENT AUTO 1 % (0-1); LYMPHOCYTES ABSOLUTE AUTO 1.04 K/mm3 (0.84-5.20); LYMPHOCYTES PERCENT AUTO 11 % (21-46); MONOCYTES ABSOLUTE AUTO 0.93 K/mm3 (0.16-1.47); MONOCYTES PERCENT AUTO 10 % (4-13); Mean Corpuscular HGB 31.5 pg (26.0-34.0); Mean Corpuscular HGB Conc 35.4 g/dL (31.5-36.5); Mean Corpuscular Volume 89 fL (80-100); Mean Platelet Volume 9.1 fL (9.1-12.4); NEUTROPHILS ABSOLUTE AUTO 6.79 K/mm3 (1.96-9.15); NEUTROPHILS PERCENT AUTO 75 % (41-73); Platelet Count 153 K/mm3 (150-400); RDW Coefficient Variation 12.9 % (11.7-14.2); RDW Standard Deviation 42.5 fL (35.1-46.3); Red Blood Cell Count 5.27 M/mm3 (4.30-5.90)
[2021-09-14 22:01] LABS: Alanine Aminotransfer (ALT/SGP 87 U/L (12-78); Albumin, Blood 3.7 g/dL (3.4-5.0); Alk Phos 122 U/L (50-136); Anion Gap 7 mmol/L (6-16); Aspartate Aminotrans (AST/SGOT 58 U/L (12-37); Bilirubin, Total 1.2 mg/dL (0.1-1.0); Blood Urea Nitrogen 15 mg/dL (8-24); Bun/Creatinine Ratio 16.6 (12.0-20.0); CO2, Blood 27 mmol/L (21-32); Calcium, Blood 9.1 mg/dL (8.5-10.1); Chloride, Blood 101 mmol/L (98-108); Globulin, Blood 3.7 g/dL (2.2-4.0); Glomerular Filtration Rate >60 (60-); Glucose, Blood 292 mg/dL (70-99); Potassium, Blood 3.9 mmol/L (3.5-5.5); Sodium, Blood 135 mmol/L (136-145); Total Protein, Blood 7.4 g/dL (6.4-8.2)
[2021-09-14 23:04] LABS: Troponin I <0.015 ng/mL (0.000-0.040)
[2021-09-15 00:51] LABS: Source, Urine Clean Catch
[2021-09-15 00:53] LABS: Bilirubin, Urine Neg (Neg); Blood, Urine 1+ (Neg); Glucose Qualitative, Urine 4+ (Neg); Ketones, Urine 2+ (Neg); Leukocyte Esterase, Urine Neg (Neg); Nitrite, Urine Neg (Neg); Protein, Urine 2+ (Neg); Specific Gravity, Urine 1.025 (1.003-1.022); Urobilinogen, Urine 1+ (Normal)
[2021-09-15 01:16] LABS: Appearance, Urine Clear (Clear); Color, Urine Yellow (P-Yellow)
[2021-09-15 01:17] LABS: Bacteria Not Seen /hpf; Red Blood Cells, Urine 0-2 /hpf (0-2); Squamous Epithelial Cells Not Seen /hpf (Few); White Blood Cells, Urine Not Seen /hpf (0-5)
[2021-09-15 01:18] LABS: Amorphous Light (0-Heavy); Mucus Light (0-Heavy)
--- NOTE | 2021-09-15 17:57 | NUR ---
PATIENT ARRIVED TO THE FLOOR FROM THE ED EARLIER TODAY. PATIENT REMAINS ON 4L O2 PER NC. RT HAS CPAP IN ROOM, PATIENT INSTUCTED TO CALL WHEN HE WANTS TO BE PLACED ON CPAP. LUNG SOUNDS DIMINISHED/COURSE. COUGH NOTED-NONPRODUCTIVE. PATIENT IS ALERT AND ORIENTED X 4, ABLE TO MAKE NEEDS AND WANTS KNOWN. CALL LIGHT AND WATER IN EASY REACH. REMAINS ON IVF. PATIENT COMPLAINED OF HEADACHE, NEW ORDERS RECIEVED FOR IBU AND WAS GIVEN, EFFECTIVE. WILL MONITOR.
--- NOTE | 2021-09-16 03:55 | NUR ---
SHIFT SUMMARY PT A&O X4 IN PLEASENT MOOD T/O SHIFT. TOLERATING PO INTAKE, DENIES N/V, AND VOIDING WELL. BOTH IV SITES SALINE LOCKED PER ORDERS. PT MEDICATED PER EMAR FOR HEADACHE AND COUGH. 4L CPAP T/O NIGHT. VSS. CALL LIGHT W/IN REACH.
--- NOTE | 2021-09-16 04:16 | NUR ---
PSYCHIATRY PHYSICIAN REPORTS PT SHAKING PT ASSESSED DENIES N/T, N/V, SOB, OR CHEST PAIN. VSS. BS ASSESSED, TRENDING DOWNWARD TOWARDS NORMAL RANGE. PT APPEARS TO BE TREMBLING, REPORTS ITS DUE TO BEING COLD. WILL CONTINUE TO MONITOR.
[2021-09-16 05:27] LABS: BASOPHILS ABSOLUTE AUTO 0.01 K/mm3 (0.00-0.23); BASOPHILS PERCENT AUTO 0 % (0-2); EOSINOPHILS PERCENT AUTO 0 % (0-6); Hematocrit 41.3 % (37.0-53.0); Hemoglobin 14.1 g/dL (13.5-17.5); IMMATURE GRAN ABSOLUTE AUTO 0.02 K/mm3 (0.00-0.10); IMMATURE GRAN PERCENT AUTO 0 % (0-1); LYMPHOCYTES ABSOLUTE AUTO 1.88 K/mm3 (0.84-5.20); LYMPHOCYTES PERCENT AUTO 29 % (21-46); MONOCYTES ABSOLUTE AUTO 0.57 K/mm3 (0.16-1.47); MONOCYTES PERCENT AUTO 9 % (4-13); Mean Corpuscular HGB 31.3 pg (26.0-34.0); Mean Corpuscular HGB Conc 34.1 g/dL (31.5-36.5); Mean Corpuscular Volume 92 fL (80-100); Mean Platelet Volume 9.8 fL (9.1-12.4); NEUTROPHILS ABSOLUTE AUTO 4.03 K/mm3 (1.96-9.15); NEUTROPHILS PERCENT AUTO 62 % (41-73); Platelet Count 120 K/mm3 (150-400); RDW Coefficient Variation 12.8 % (11.7-14.2); RDW Standard Deviation 42.6 fL (35.1-46.3); Red Blood Cell Count 4.51 M/mm3 (4.30-5.90); White Blood Cell Count 6.51 K/mm3 (4.00-11.30)
[2021-09-16 05:44] LABS: Alanine Aminotransfer (ALT/SGP 65 U/L (12-78); Albumin, Blood 2.7 g/dL (3.4-5.0); Albumin/Globulin Ratio 0.8 (0.8-1.8); Alk Phos 90 U/L (50-136); Anion Gap 7 mmol/L (6-16); Aspartate Aminotrans (AST/SGOT 26 U/L (12-37); Bilirubin, Direct 0.1 mg/dL (0.0-0.3); Bilirubin, Indirect 0.6 mg/dL (0.1-0.7); Bilirubin, Total 0.7 mg/dL (0.1-1.0); Blood Urea Nitrogen 10 mg/dL (8-24); Bun/Creatinine Ratio 14.8 (12.0-20.0); CO2, Blood 29 mmol/L (21-32); Calcium, Blood 8.5 mg/dL (8.5-10.1); Chloride, Blood 103 mmol/L (98-108); Creatinine, Blood 0.68 mg/dL (0.60-1.20); Globulin, Blood 3.4 g/dL (2.2-4.0); Glomerular Filtration Rate >60 (60-); Glucose, Blood 207 mg/dL (70-99); Phosphorus, Blood 2.1 mg/dL (2.5-4.9); Sodium, Blood 139 mmol/L (136-145); Total Protein, Blood 6.1 g/dL (6.4-8.2)
[2021-09-16 14:39] LABS: Adenovirus Not Detected (NOT DETECT); Coronavirus 229E Not Detected (NOT DETECT); Coronavirus HKU1 Not Detected (NOT DETECT); Coronavirus NL63 Not Detected (NOT DETECT); Coronavirus OC43 Not Detected (NOT DETECT); Human Metapneumovirus Not Detected (NOT DETECT); Human Rhinovirus/Enterovirus Not Detected (NOT DETECT); Influenza A/2009-H1 Not Detected (NOT DETECT); Influenza A/H1 Not Detected (NOT DETECT); Influenza A/H3 Not Detected (NOT DETECT); SARS-Cov-2 (COVID-19), BioFire Not Detected (NOT DETECT)
[2021-09-16 14:40] LABS: Bordetella pertussis Not Detected (NOT DETECT); Chlamydophila pneumoniae Not Detected (NOT DETECT); Influenza B Not Detected (NOT DETECT); Mycoplasma pneumoniae Not Detected (NOT DETECT); Parainfluenza Virus 1 Not Detected (NOT DETECT); Parainfluenza Virus 2 Not Detected (NOT DETECT); Parainfluenza Virus 3 Detected (NOT DETECT); Parainfluenza Virus 4 Not Detected (NOT DETECT); Respiratory Syncytial Virus Not Detected (NOT DETECT)
--- NOTE | 2021-09-16 17:35 | NUR ---
PATIENT CURRENTLY SITTING UP IN BED EATING DINNER AND VISITING WITH AT BEDSIDE. NO SIGNS OR SYMPTOMS ACUTE DISTRESS NOTED. NO COMPLAINTS OF PAIN AT THIS TIME. COMPLAINS OF COUGH, MEDIATED PER ORDERS. APPETITE GOOD. PATIENT WENT FOR CT HEAD AND CXR TODAY. RESPITORY PANEL SENT TODAY WELL. PATIENT HAS BEEN ON ROOM AIR TODAY AND HAS TOLERATED WELL. ALERT AND AWAKE AND ANSWERS QUESTIONS APPROPIATELY. ABLE TO MAKE NEEDS AND WANTS KNOWN. CALL LIGHT AND WATER IN EASY REACH. WILL MONITOR.
--- NOTE | 2021-09-17 05:37 | NUR ---
PT REMAINS IN BED THROUGHOUT THE NIGHT AND IS RESTING QUIETLY IN STABLE CONDITION. ASSISTED WITH CARE AND ADLS, ASSISTED WITH BATHROOM AND TOILETING NEEDS. PT HAS VOIDED SINCE HIS BROWN HAS BEED D/C'D WITH NO COMPLAINTS OR DIFFICULTIES. HE IS ASSISTED WITH TURNING AND REPOSITIONING, KEPT DRY TO ENHANCE COMFORT. PT URGED TO CALL FOR HELP WHEN ASSISTANCE IS NEEDED HE IS MONITORED.
--- NOTE | 2021-09-17 05:45 | NUR ---
PT IS IN BED AT THIS TIME WHERE HE REMAINS THROUGHOUT THE NIGHT AND IS RESTING COMFORTABLY IN STABLE CONDITION. ASSISTED WITH CARE AND ADLS, ASSISTED WITH BATHROOM AND TOILETING NEEDS. HE IS ALERT AND ORIENTED, MEDICATED INDICATED, CALL HERNADEZ PLACED NEAR HIM AND ENCOURAGED TO CALL FOR HELP WHEN ASSISTANCE IS NEEDED HE IS MONITORED.
[2021-09-17 06:09] LABS: Albumin, Blood 2.9 g/dL (3.4-5.0); Anion Gap 7 mmol/L (6-16); Blood Urea Nitrogen 11 mg/dL (8-24); Bun/Creatinine Ratio 15.9 (12.0-20.0); CO2, Blood 31 mmol/L (21-32); Calcium, Blood 8.5 mg/dL (8.5-10.1); Chloride, Blood 104 mmol/L (98-108); Creatinine, Blood 0.69 mg/dL (0.60-1.20); Glomerular Filtration Rate >60 (60-); Glucose, Blood 271 mg/dL (70-99); Phosphorus, Blood 3.5 mg/dL (2.5-4.9); Potassium, Blood 3.7 mmol/L (3.5-5.5); Sodium, Blood 142 mmol/L (136-145)
[2021-09-17 07:02] LABS: BASOPHILS ABSOLUTE AUTO 0.01 K/mm3 (0.00-0.23); BASOPHILS PERCENT AUTO 0 % (0-2); EOSINOPHILS ABSOLUTE AUTO 0.01 K/mm3 (0.00-0.68); EOSINOPHILS PERCENT AUTO 0 % (0-6); Hematocrit 39.5 % (37.0-53.0); Hemoglobin 13.8 g/dL (13.5-17.5); IMMATURE GRAN ABSOLUTE AUTO 0.02 K/mm3 (0.00-0.10); IMMATURE GRAN PERCENT AUTO 0 % (0-1); LYMPHOCYTES ABSOLUTE AUTO 1.71 K/mm3 (0.84-5.20); LYMPHOCYTES PERCENT AUTO 37 % (21-46); MONOCYTES ABSOLUTE AUTO 0.39 K/mm3 (0.16-1.47); MONOCYTES PERCENT AUTO 9 % (4-13); Mean Corpuscular HGB 31.6 pg (26.0-34.0); Mean Corpuscular HGB Conc 34.9 g/dL (31.5-36.5); Mean Corpuscular Volume 90 fL (80-100); Mean Platelet Volume 9.8 fL (9.1-12.4); NEUTROPHILS ABSOLUTE AUTO 2.43 K/mm3 (1.96-9.15); NEUTROPHILS PERCENT AUTO 53 % (41-73); Platelet Count 134 K/mm3 (150-400); RDW Coefficient Variation 12.6 % (11.7-14.2); RDW Standard Deviation 41.9 fL (35.1-46.3); Red Blood Cell Count 4.37 M/mm3 (4.30-5.90); White Blood Cell Count 4.57 K/mm3 (4.00-11.30)
[2021-09-17] MEDS ORDERED: Acetaminophen325 M1 PO (10:36)
[2021-09-17] MEDS ORDERED: BENZ100A PO (10:37)
[2021-09-17] MEDS ORDERED: XARELTO20 MG PO (10:39)
--- NOTE | 2021-09-17 11:18 | NUR ---
DISCHARGE: DISCHARGE INSTUCTIONS GIVEN TO PATIENT AT THIS TIME. PATIENT VERBALIZED UDNERSTANDING. NO SIGNS OR SYMPTOMS ACUTE DISTRESS NOTED. WAITING ON RIDE AT THIS TIME.
--- NOTE | 2021-09-17 11:34 | NUR ---
Patient immediately informs me that h is in the DC process and will be headed out soon. He tells me about his sepsis issues and about how much better he is feeling. He voices no concerns but appreciates prayer. I gladly provide prayer and a blesssing. Patient responds well and shows signs of an elevated mood. I will continue to remain avaiable to pateint and family.
== END 2021-09-17 11:50 | disposition home or self-care (01) | DRG 871 ==
LOC: ER 20:56 → ERHOLD 09-15 00:11 → SURS 09-15 00:11
PROVIDERS: Family Medicine; Physician Assistant; Student in an Organized Health Care Education/Training Program; ADMIT Internal Medicine
DX: A41.89 Other specified sepsis (principal); J96.01 Acute respiratory failure with hypoxia; Z20.822 Contact with and (suspected) exposure to COVID-19; I48.0 Paroxysmal atrial fibrillation; J10.1 Influenza due to other identified influenza virus with other respiratory manifestations; Z23 Encounter for immunization; D69.6 Thrombocytopenia, unspecified; E11.9 Type 2 diabetes mellitus without complications; G47.33 Obstructive sleep apnea (adult) (pediatric); Z79.4 Long term (current) use of insulin; Z79.899 Other long term (current) drug therapy; Z90.89 Acquired absence of other organs; Z98.890 Other specified postprocedural states; Z85.72 Personal history of non-Hodgkin lymphomas; Z90.2 Acquired absence of lung [part of]; Z86.711 Personal history of pulmonary embolism; Z79.01 Long term (current) use of anticoagulants
CPT/HCPCS: 0202U; 36415; 70450; 71045; 71046; 80053; 80069; 81001; 82248; 82947; 83605; 84100; 84145; 84484; 85025; 87040; 90686; 93005; 93010; 94640; 94660; 94664; 94762; 96365; 96367; 96368; 96375; 99285-25; A9270; G0008; J0456; J0692; J0696; J1170; J1815; J1885; J2250; J3370; J7030; J7050; J7120

== ENCOUNTER 2024-04-19 13:18 | Emergency (ER) | payer OTHER ==
[~2024-04-19] VITALS: Ht 180.3 cm; Wt 113.4 kg
[~2024-04-19 13:18] MED LIST changes: +Acetaminophen325 M1 PO
[2024-04-19 14:51] LABS: BASOPHILS ABSOLUTE AUTO 0.03 K/mm3 (0.00-0.23); BASOPHILS PERCENT AUTO 0 % (0-2); EOSINOPHILS ABSOLUTE AUTO 0.03 K/mm3 (0.00-0.68); EOSINOPHILS PERCENT AUTO 0 % (0-6); Hematocrit 51.1 % (37.0-53.0); Hemoglobin 17.1 g/dL (13.5-17.5); IMMATURE GRAN ABSOLUTE AUTO 0.08 K/mm3 (0.00-0.10); IMMATURE GRAN PERCENT AUTO 1 % (0-1); LYMPHOCYTES PERCENT AUTO 19 % (21-46); MONOCYTES ABSOLUTE AUTO 0.57 K/mm3 (0.16-1.47); MONOCYTES PERCENT AUTO 5 % (4-13); Mean Corpuscular HGB 28.9 pg (26.0-34.0); Mean Corpuscular HGB Conc 33.5 g/dL (31.5-36.5); Mean Corpuscular Volume 87 fL (80-100); Mean Platelet Volume 8.4 fL (9.1-12.4); NEUTROPHILS ABSOLUTE AUTO 7.96 K/mm3 (1.96-9.15); NEUTROPHILS PERCENT AUTO 75 % (41-73); Platelet Count 249 K/mm3 (150-400); RDW Coefficient Variation 13.4 % (11.7-14.2); RDW Standard Deviation 43.6 fL (35.1-46.3); Red Blood Cell Count 5.91 M/mm3 (4.30-5.90); White Blood Cell Count 10.67 K/mm3 (4.00-11.30)
[2024-04-19] MEDS ORDERED: Acetaminophen 500 MG Tab PO ONE (15:05)
[2024-04-19] MEDS ORDERED: Ibuprofen 400 MG Tab PO ONE (15:05)
[2024-04-19 15:13] LABS: Albumin, Blood 3.7 g/dL (3.4-5.0); Bilirubin, Total 0.7 mg/dL (0.1-1.0); Calcium, Blood 9.2 mg/dL (8.5-10.1); Globulin, Blood 3.8 g/dL (2.2-4.0); Potassium, Blood 3.9 mmol/L (3.5-5.5); Total Protein, Blood 7.5 g/dL (6.4-8.2)
[2024-04-19] MEDS ORDERED: NS 1,000 ML IV SCH (15:25)
[2024-04-19 15:27] LABS: Influenza A, PCR NEGATIVE (NEGATIVE); Influenza B, PCR NEGATIVE (NEGATIVE); Resp Syncytial Virus, PCR NEGATIVE (NEGATIVE); SARS-Cov-2 (COVID-19) PCR, MMC NEGATIVE (NEGATIVE)
[2024-04-19 16:30] VITALS: BP 99/69
== END 2024-04-19 16:53 | disposition home or self-care (01) ==
LOC: ER 13:18
PROVIDERS: Physician Assistant
DX: J06.9 Acute upper respiratory infection, unspecified (principal); E11.9 Type 2 diabetes mellitus without complications; G47.33 Obstructive sleep apnea (adult) (pediatric); I48.91 Unspecified atrial fibrillation; Z79.84 Long term (current) use of oral hypoglycemic drugs; Z79.4 Long term (current) use of insulin; Z79.899 Other long term (current) drug therapy
CPT/HCPCS: 0241U; 71046; 80053; 85025; A9270; J7030